=== PATIENT | female | born 1965 | race Caucasian/White ===

== ENCOUNTER 2016-10-29 20:54 | Observation (INO) | payer MEDICARE, OTHER ==
[2016-10-29 21:36] LABS: Basophils # (A) 0.1 k/uL (0-0.2); Basophils % (A) 1 %; CH 28.5; CHCM 33.6; Eosinophils # (A) 0.3 k/uL (0-0.7); Eosinophils % (A) 4 %; HCT 33.2 % (34.0-46.0); HDW 3.09; HGB 11.5 gm/dL (11.4-16.0); Luc # (Auto) 0.14; Luc % (Auto) 2; Lymphocytes # (A) 1.8 k/uL (1.0-4.8); Lymphocytes % (A) 24 %; MCH 29.5 pg (25.0-35.0); MCHC 34.8 g/dL (31.0-37.0); Monocytes # (A) 0.4 k/uL (0-1.0); Monocytes % (A) 5 %; Neutrophils # (A) 4.8 k/uL (1.3-7.7); Neutrophils % (A) 64 %; RBC 3.91 m/uL (3.80-5.40); RDW 14.1 % (11.5-15.5); WBC 7.6 k/uL (3.8-10.6)
[2016-10-29 21:46] LABS: ALT 40 U/L (9-52); AST 23 U/L (14-36); Alkaline Phosphatase 131 U/L (38-126); Anion Gap 13 mmol/L; Blood Urea Nitrogen 10 mg/dL (7-17); Calcium 8.9 mg/dL (8.4-10.2); Carbon Dioxide 24 mmol/L (22-30); Chloride 99 mmol/L (98-107); Glucose 307 mg/dL (74-99); Magnesium 1.6 mg/dL (1.6-2.3); Non-African American GFR(MDRD) >60 (>60 ml/min/1.73 sqM); Potassium 4.3 mmol/L (3.5-5.1); Sodium 136 mmol/L (137-145); Total Bilirubin 0.5 mg/dL (0.2-1.3); Total Protein 6.7 g/dL (6.3-8.2)
[2016-10-29 22:12] LABS: Creatine Kinase 42 U/L (30-135)
--- NOTE | 2016-10-29 22:12 | XR ---
EXAMINATION TYPE: XR chest 2V DATE OF EXAM: 10/29/2016 9:36 PM COMPARISON: 08/22/2014 HISTORY: Chest pain TECHNIQUE: Frontal and lateral views of the chest are obtained. FINDINGS: There is no heart failure nor confluent pneumonic infiltrate. There are no hilar masses. H eart size is normal. There are chest leads. IMPRESSION: No active cardiopulmonary disease. No change.
[2016-10-29 22:24] LABS: Creatine Kinase MB 0.8 ng/mL (0.0-2.4); Troponin I <0.012 ng/mL (0.000-0.034)
[2016-10-29] MEDS ORDERED: SODIUM CHLORIDE 0.9% 500 ML IV STA (22:26)
[2016-10-29] MEDS ORDERED: SODIUM CHLORIDE 0.9% 1,000 ML IV STA ×2 (22:26)
[2016-10-29] MEDS ORDERED: MORPHINE SULFATE 4 MG/ML SYRINGE IVP STA (22:27)
[2016-10-29] MEDS ORDERED: LORazepam 2 MG/ML SYRINGE IV STA (22:27)
[2016-10-29 22:28] LABS: Partial Thromboplastin Time 22.9 sec (22.0-30.0); Prothrombin Time 10.1 sec (9.0-12.0)
[2016-10-29] MEDS ORDERED: HEPARIN SODIUM,PORCINE 5,000 UNIT/ML 1 ML VIAL IV PRN ×2 (22:41→23:07)
[2016-10-29] MEDS ORDERED: MORPHINE SULFATE 4 MG/ML SYRINGE IV PRN (22:41)
[2016-10-29] MEDS ORDERED: HEPARIN SODIUM,PORCINE 5,000 UNIT/ML 1 ML VIAL IV ONE (22:41)
[2016-10-29] MEDS ORDERED: NITROGLYCERIN SL TABS 0.4 MG TAB SUBLINGUAL PRN (22:41)
--- NOTE | 2016-10-29 22:41 | ED ---
General Adult HPI - General Chief complaint: Chest Pain Stated complaint: Chest Pain/Hypertension Time Seen by Provider: 10/29/16 21:32 Source: patient, RN notes reviewed, old records reviewed Mode of arrival: ambulatory Limitations: no limitations - History of Present Illness Initial comments: This is a 51-year-old female yesterday for evaluation of chest pain. She does have underlying psychiatric history and history is bagged the patient complains of chest pain epigastric rating to back. Mild shortness of breath no nausea vomiting. No recent fevers cough congestion. Patient does suffer from fibromyalgia hypertension, high cholesterol and psychiatric disease. Patient states she is taking all medications as prescribed. Patient was initially concerned which shows her blood pressure to be very elevated and heart rate to be very elevated while at home, at the time she was feeling weak and short of breath or chest pain chest pain. Again no cough congestion or fever travel history. - Related Data Home Medications Medication Instructions Recorded Confirmed Bisoprolol-Hctz 10-6.25 mg [Ziac 09/29/15 09/29/15 10-6.25 MG] FLUoxetine HCL [PROzac] 40 mg PO DAILY 09/29/15 09/29/15 Rosuvastatin Calcium [Crestor] 5 mg PO DAILY 09/29/15 09/29/15 Zolpidem Tartrate [Ambien] 10 mg PO 09/29/15 09/29/15 lamoTRIgine [LaMICtal] 25 mg PO DAILY 09/29/15 09/29/15 metFORMIN HCL 1,000 mg PO BID 09/29/15 09/29/15 Previous Rx's Medication Instructions Recorded Cephalexin [Keflex] 500 mg PO Q6HR #28 cap 09/29/15 Ibuprofen [Motrin] 800 mg PO Q8HR PRN #30 tab 09/29/15 Allergies Allergy/AdvReac Type Severity Reaction Status Date / Time coconut oil Allergy Unknown Anaphylaxis Verified 08/22/14 22:35 pineapple [Pineapple] Allergy Unknown Anaphylaxis Verified 08/22/14 22:35 licorice Allergy Unknown Verified 10/29/16 21:11 flu shot Allergy Unknown Unknown Uncoded 08/22/14 22:35 Review of Systems ROS Statement: Those systems with pertinent positive or pertinent negative responses have been documented in the HPI. ROS Other: All systems not noted in ROS Statement are negative. Past Medical History Past Medical History: Diabetes Mellitus, Fibromyalgia, Hyperlipidemia, Hypertension, Musculoskeletal Disorder, Seizure Disorder Additional Past Medical History / Comment(s): borderline personality; Pt. denies hx. of CVA, so it's being taken off past med. history per Dr. Stanton's direction. History of Any Multi-Drug Resistant Organisms: None Reported Past Surgical History: Cholecystectomy Past Anesthesia/Blood Transfusion Reactions: No Reported Reaction Past Psychological History: Schizophrenia Additional Psychological History / Comment(s): Borderline personality disorder Smoking Status: Current every day smoker Past Alcohol Use History: Occasional Past Drug Use History: Cocaine General Exam Limitations: no limitations General appearance: alert, in no apparent distress, anxious Head exam: Present: atraumatic, normocephalic, normal inspection Eye exam: Present: normal appearance, PERRL, EOMI. Absent: scleral icterus, conjunctival injection, periorbital swelling ENT exam: Present: normal exam, mucous membranes moist Neck exam: Present: normal inspection. Absent: tenderness, meningismus, lymphadenopathy Respiratory exam: Present: normal lung sounds bilaterally. Absent: respiratory distress, wheezes, rales, rhonchi, stridor Cardiovascular Exam: Present: regular rate, normal rhythm, tachycardia, normal heart sounds. Absent: systolic murmur, diastolic murmur, rubs, gallop, clicks GI/Abdominal exam: Present: soft, normal bowel sounds. Absent: distended, tenderness, guarding, rebound, rigid Extremities exam: Present: normal inspection, full ROM, normal capillary refill. Absent: tenderness, pedal edema, joint swelling, calf tenderness Back exam: Present: normal inspection Neurological exam: Present: alert, oriented X3, CN II-XII intact Psychiatric exam: Present: normal affect, normal mood Skin exam: Present: warm, dry, intact, normal color. Absent: rash Course Vital Signs 10/29/16 21:03 Temperature 98.6 F Pulse Rate 103 H Respiratory 18 Rate Blood Pressure 160/91 O2 Sat by Pulse 96 Oximetry - Reevaluation(s) Reevaluation #1: 10/29/16 22:40 Patient's chest pain is improved with pain control, heart rate remains elevated , blood pressure is not controlled EKG Findings - EKG Comments: EKG Findings:: EKG shows sinus tachycardia rate 101, TX 154, QRS 74, QTC 484 Medical Decision Making - Medical Decision Making 51 female with history of hypertension and high cholesterol, patient coming in with chest pain, anterior chest pain shortness of breath. Patient will be admitted for cardiac evaluation initial EKG shows no ST elevation, patient will be put on anticoagulation, pain control, cardiac observation with serial troponins - Lab Data Result diagrams: 10/29/16 21:24 10/29/16 21:24 Lab Results 10/29/16 10/29/16 10/29/16 Range/Units 21:24 21:24 21:24 WBC 7.6 (3.8-10.6) k/uL RBC 3.91 (3.80-5.40) m/uL Hgb 11.5 (11.4-16.0) gm/dL Hct 33.2 L (34.0-46.0) % MCV 85.0 (80.0-100.0) fL MCH 29.5 (25.0-35.0) pg MCHC 34.8 (31.0-37.0) g/dL RDW 14.1 (11.5-15.5) % Plt Count 264 (150-450) k/uL Neutrophils % 64 % Lymphocytes % 24 % Monocytes % 5 % Eosinophils % 4 % Basophils % 1 % Neutrophils # 4.8 (1.3-7.7) k/uL Lymphocytes # 1.8 (1.0-4.8) k/uL Monocytes # 0.4 (0-1.0) k/uL Eosinophils # 0.3 (0-0.7) k/uL Basophils # 0.1 (0-0.2) k/uL PT (9.0-12.0) sec INR (<1.1) APTT (22.0-30.0) sec D-Dimer (<0.60) mg/L FEU Sodium 136 L (137-145) mmol/L Potassium 4.3 (3.5-5.1) mmol/L Chloride 99 (98-107) mmol/L Carbon Dioxide 24 (22-30) mmol/L Anion Gap 13 mmol/L BUN 10 (7-17) mg/dL Creatinine 0.54 (0.52-1.04) mg/dL Est GFR (MDRD) Af Amer >60 (>60 ml/min/1.73 sqM) Est GFR (MDRD) Non-Af >60 (>60 ml/min/1.73 sqM) Glucose 307 H (74-99) mg/dL Calcium 8.9 (8.4-10.2) mg/dL Magnesium 1.6 (1.6-2.3) mg/dL Total Bilirubin 0.5 (0.2-1.3) mg/dL AST 23 (14-36) U/L ALT 40 (9-52) U/L Alkaline Phosphatase 131 H (38-126) U/L Total Creatine Kinase 42 (30-135) U/L CK-MB (CK-2) 0.8 (0.0-2.4) ng/mL CK-MB (CK-2) Rel Index 1.9 Troponin I <0.012 (0.000-0.034) ng/mL Total Protein 6.7 (6.3-8.2) g/dL Albumin 3.5 (3.5-5.0) g/dL 10/29/16 Range/Units 21:24 WBC (3.8-10.6) k/uL RBC (3.80-5.40) m/uL Hgb (11.4-16.0) gm/dL Hct (34.0-46.0) % MCV (80.0-100.0) fL MCH (25.0-35.0) pg MCHC (31.0-37.0) g/dL RDW (11.5-15.5) % Plt Count (150-450) k/uL Neutrophils % % Lymphocytes % % Monocytes % % Eosinophils % % Basophils % % Neutrophils # (1.3-7.7) k/uL Lymphocytes # (1.0-4.8) k/uL Monocytes # (0-1.0) k/uL Eosinophils # (0-0.7) k/uL Basophils # (0-0.2) k/uL PT 10.1 (9.0-12.0) sec INR 1.0 (<1.1) APTT 22.9 (22.0-30.0) sec D-Dimer 0.31 (<0.60) mg/L FEU Sodium (137-145) mmol/L Potassium (3.5-5.1) mmol/L Chloride (98-107) mmol/L Carbon Dioxide (22-30) mmol/L Anion Gap mmol/L BUN (7-17) mg/dL Creatinine (0.52-1.04) mg/dL Est GFR (MDRD) Af Amer (>60 ml/min/1.73 sqM) Est GFR (MDRD) Non-Af (>60 ml/min/1.73 sqM) Glucose (74-99) mg/dL Calcium (8.4-10.2) mg/dL Magnesium (1.6-2.3) mg/dL Total Bilirubin (0.2-1.3) mg/dL AST (14-36) U/L ALT (9-52) U/L Alkaline Phosphatase (38-126) U/L Total Creatine Kinase (30-135) U/L CK-MB (CK-2) (0.0-2.4) ng/mL CK-MB (CK-2) Rel Index Troponin I (0.000-0.034) ng/mL Total Protein (6.3-8.2) g/dL Albumin (3.5-5.0) g/dL - Radiology Data Radiology results: report reviewed (Chest x-ray 2 views negative for acute disease), image reviewed Critical Care Time Critical Care Time: Yes Total Critical Care Time: 31 Disposition Clinical Impression: Chest pain Disposition: ADMITTED IP TO THIS [facility] Condition: Undetermined Instructions: Chest Pain (ED) Referrals: Nonstaff,Physician [Primary Care Provider] - 1-2 days
[2016-10-29] MEDS ORDERED: HEPARIN SODIUM,PORCINE/D5W PMX 25,000 UNIT in DEXTROSE/WATER 1 500ML.BAG IV SCH (22:45)
[2016-10-29 23:00] LABS: Phosphorous 3.9 mg/dL (2.5-4.5)
[2016-10-29 23:43] LABS: Glucose,Whole Blood 273 mg/dL (75-99)
[2016-10-29 23:59] VITALS: BMI 32.5
[2016-10-30 03:47] LABS: Creatine Kinase 33 U/L (30-135)
[2016-10-30 04:01] LABS: Creatine Kinase MB 0.6 ng/mL (0.0-2.4); Troponin I <0.012 ng/mL (0.000-0.034)
[2016-10-30 07:12] LABS: Glucose,Whole Blood 260 mg/dL (75-99)
[2016-10-30 07:24] LABS: Mean Platelet Volume 6.6
[2016-10-30 07:48] LABS: HDL Cholesterol 52 mg/dL (40-60)
[2016-10-30 08:39] LABS: Cholesterol 511 mg/dL (<200)
[2016-10-30 08:40] LABS: Triglycerides 1588 mg/dL (<150)
[2016-10-30 08:58] VITALS: RESP 16
[2016-10-30] MEDS ORDERED: ASPIRIN 325 MG TAB PO SCH (09:00)
[2016-10-30] MEDS ORDERED: ASPIRIN 81 MG CHEW PO SCH (09:00)
[2016-10-30] MEDS ORDERED: BISOPROLOL-HCTZ 10-6.25 MG 1 EACH TAB PO SCH (09:00)
[2016-10-30] MEDS: SODIUM CHLORIDE 0.9% 1,000 ML IV SCH ×2 (09:05→10:35)
[2016-10-30 10:28] LABS: Creatine Kinase 36 U/L (30-135)
[2016-10-30] MEDS ORDERED: NAPROXEN 250 MG TAB PO PRN (10:31)
[2016-10-30 10:41] LABS: Creatine Kinase MB 0.6 ng/mL (0.0-2.4); Troponin I <0.012 ng/mL (0.000-0.034)
[2016-10-30] MEDS ORDERED: GLIMEPIRIDE 2 MG TAB PO SCH (10:45)
[2016-10-30] MEDS ORDERED: ATORVASTATIN 40 MG TAB PO SCH (10:45)
[2016-10-30] MEDS ORDERED: FLUoxetine HCL 20 MG CAP PO SCH (10:45)
[2016-10-30] MEDS ORDERED: POTASSIUM CHLORIDE ER 10 MEQ TAB.ER.PRT PO SCH (10:45)
[2016-10-30] MEDS ORDERED: metFORMIN 500 MG TAB PO SCH (10:45)
[2016-10-30] MEDS ORDERED: GEMFIBROZIL 600 MG TAB PO SCH (10:45)
[2016-10-30] MEDS ORDERED: TOPIRAMATE 25 MG TAB PO SCH (10:45)
[2016-10-30] MEDS ORDERED: levETIRAcetam 500 MG TAB PO SCH (10:45)
[2016-10-30] MEDS ORDERED: lamoTRIgine 100 MG TAB PO SCH (10:45)
--- NOTE | 2016-10-30 10:49 | CONS ---
DATE OF CONSULTATION: CHIEF COMPLAINT: Chest pain. Neeru is a 51-year-old lady with history of hypertension, gastroesophageal reflux disease, and bipolar mood disorder, who presented to the hospital having had an episode of chest pain. She describes it as sharp precordial pain that radiated to her back without nausea, vomiting, or diaphoresis. Chest discomfort is mild in intensity and has gradually resolved on its own. There were no clear-cut exacerbating factors. At the time of my evaluation this morning, she is pain free. Cardiac enzymes are negative. EKG does not reveal acute ischemic changes. Past medical history is significant for hypertension, dyslipidemia, [id number] diabetes and bipolar mood disorder. She has drug ALLERGIES INCLUDING FLU SHORT, COCONUT OIL, PINEAPPLE AND LICORICE. Medications include: Keflex, ibuprofen, Ziac, Prozac, Crestor, Ambien, Lamictal and metformin. FAMILY HISTORY: Negative for premature coronary artery disease. SOCIAL HISTORY: Significant for smoking. Negative EtOH abuse or drug abuse. REVIEW OF SYSTEMS: HEENT: Unremarkable. CARDIAC: As described above. RESPIRATORY: Negative. GI: Negative. GENITOURINARY: Negative. MUSCULOSKELETAL: Significant for arthritis. PSYCHOSOCIAL: Significant for bipolar mood disorder. DERMATOLOGY: Negative. CONSTITUTIONAL: Negative. HEMATOLOGICAL: Negative. ONCOLOGICAL: Negative. The rest of the system review is not relevant. On exam, patient is afebrile, heart rate is 90 beats per minute, blood pressure is 150/89, respiratory rate is 18. There is no jugular venous distention. Carotid upstroke is normal. There is no bruit. Chest exam reveals good air entry bilaterally. Heart exam reveals first and second heart sounds. No gallop. No murmur, no rub. Abdomen is soft, nontender. Exam of the extremities did not reveal any edema. Peripheral pulses are felt. Labs show that the hemoglobin is 11.5. Creatinine is 0.5, two sets of tropes are negative. Cholesterol is elevated at 511 and triglycerides are 1588. Blood sugar is elevated at 307. ASSESSMENT: 1. Chest pain, atypical, probably musculoskeletal. So far cardiac work-up is negative. I am going to obtain a 2-D echo to evaluate her LV function and she will need a stress test which can be done as outpatient. 2. Severe mixed hyperlipidemia. Triglycerides are elevated as are the cholesterols. Probably related to poorly controlled blood sugars. She needs optimal control of her blood sugars. She is already on Lopid 600 b.i.d. and she is already on Crestor and Lopid. The dyslipidemia needs to be addressed further as outpatient primarily by working on her diet, weight loss and optimal control of her diabetes.
[2016-10-30 11:50] LABS: Glucose,Whole Blood 279 mg/dL (75-99)
[2016-10-30] MEDS ORDERED: INSULIN LISPRO (humaLOG) 300 UNIT/3 ML VIAL SQ SCH (12:30)
[2016-10-30 12:32] VITALS: BP 157/80; PULSE 90; TEMP 98.2
--- NOTE | 2016-10-30 13:29 | ECHOF ---
Referral Reason:cp MEASUREMENTS -------- HEIGHT: 162.6 cm WEIGHT: 85.7 kg BP: 140/95 IVSd: 1.1 cm (0.6 - 1.1) LVIDd: 4.9 cm (3.9 - 5.3) LVPWd: 1.2 cm (0.6 - 1.1) LVIDs: 3.1 cm LA Diam: 4.3 cm (2.7 - 3.8) RVIDd: 2.9 cm (< 3.3) LAESV Index (A-L): 27.17 ml/m Ao Diam: 3.1 cm (2.0 - 3.7) AV Cusp: 2.3 cm (1.5 - 2.6) EPSS: 0.5 cm MV E Holden: 1.09 m/s MV DecT: 230 ms MV A Holden: 0.98 m/s MV E/A Ratio: 1.11 MV EF SLOPE: 84.18 mm/s (70 - 150) MV EXCURSION: 13.19 mm (> 18.000) FINDINGS -------- Sinus rhythm. This was a technically good study. The left ventricular size is normal. There is borderline concentric left ventricular hypertrophy. Overall left ventricular systolic function is normal with, an EF between 60 - 65 %. The right ventricle is normal in size. Normal LA size by volume 22+/-6 ml/m2. The right atrium is normal in size. There is mild aortic valve sclerosis. The mitral valve leaflets are mildly thickened. Mild mitral annular calcification present. There is trace to mild mitral regurgitation. The tricuspid valve appears structurally normal. No regurgitation noted The pulmonic valve is normal. There is no pulmonic regurgitation present. The aortic root size is normal. There is no pericardial effusion. CONCLUSIONS -------- 1. Sinus rhythm. 2. The mitral valve leaflets are mildly thickened. 3. Mild mitral annular calcification present. 4. There is trace to mild mitral regurgitation. 5. The tricuspid valve appears structurally normal. 6. The pulmonic valve is normal. 7. The aortic root size is normal. 8. There is no pericardial effusion. 9. This was a technically good study. 10. The left ventricular size is normal. 11. There is borderline concentric left ventricular hypertrophy. 12. Overall left ventricular systolic function is normal with, an EF between 60 - 65 %. 13. The right ventricle is normal in size. 14. Normal LA size by volume 22+/-6 ml/m2. 15. The right atrium is normal in size. 16. There is mild aortic valve sclerosis. INTERNAL INVESTIGATOR: Nilam Sosa RDCS
[2016-10-30 14:01] LABS: Hemoglobin A1C 7.2 % (4.2-6.1)
--- NOTE | 2016-10-30 15:34 | HP ---
DATE OF ADMISSION: CHIEF COMPLAINT: A 51-year-old white female who developed some chest pain, sharp precordial pain, radiates to her back without nausea, vomiting, diaphoresis. Mild in intensity, goes away on its own. Not alleviated or exacerbated by anything. She states she had it this morning and is currently pain free at this time. Cardiac enzymes are negative currently and the EKG, no ischemic changes on admission. The patient has a history of hypertension, GERD, bipolar disorder, dyslipidemia, and type 2 diabetes. ALLERGIES: Include FLU SHOT, COCONUT OIL, PINEAPPLE and LICORICE. Medications include: 1. Keflex. 2. Ibuprofen. 3. Ziac. 4. Prozac. 5. Crestor. 6. Inderal LA. 7. Lamictal. 8. Metformin. Family history is negative. Social history significant for smoking, negative alcohol or drug abuse. REVIEW OF SYSTEMS: CARDIAC: As mentioned above. PULMONARY: Negative. VASCULAR: Negative. IMMUNE: Negative. INTEGUMENT: Negative. GI: Negative. [employer]: Negative. MUSCULOSKELETAL: Negative. PHYSICAL EXAM: Vital signs are reviewed. CARDIOVASCULAR: S1, S2. No chest wall tenderness. Lungs are clear. Abdomen is distended, obesity, nontender. Extremities show of range of motion of full x4. PSYCH: Giving appropriate answers, fair mood and affect. NEUROLOGIC: Alert and oriented x3. Labs were reviewed. Vitals are reviewed. MEDICATIONS: Reviewed. ASSESSMENT: 1. Atypical chest pain, most likely musculoskeletal. A 2-D echo will be ordered by Cardiology. 2. Severe mixed dyslipidemia, triglycerides, severe mixed edema. 3. Bipolar disorder. PLAN: Echo will be done. Cardiology consult will be done. CPKs x2 to 3 will be done. Chest x-ray is normal. D-dimer is negative. If she is cleared by cardiology, fely then can be discharged later on today.
--- NOTE | 2016-10-30 20:48 | DS ---
DATE OF ADMISSION: 10/29/2016 DATE OF DISCHARGE: 10/30/2016 DISCHARGE MEDICATIONS: 1. Bisoprolol hydrochlorothiazide 10/625 one daily. 2. Metformin 1000 b.i.d. 3. Abilify 30 daily. 4. Aspirin 81 daily. 5. Prozac 60 daily. 6. Lopid 600 b.i.d. 7. Amaryl 2 mg a.c. breakfast. 8. Naprosyn 500 q12. 9. Omeprazole 20 daily. 10. Potassium chloride 10 mEq b.i.d. CONDITION: Stable. PROGNOSIS: Guarded. Ambulate as tolerated. HOSPITAL COURSE OF EVENTS: This is a white female who was admitted to the hospital with atypical type chest pain and chest x-ray ( ) negative. She was admitted. Cardiac enzymes are negative. ( ) normal. Cardiology cleared her for discharge. She was stable from a medical standpoint and she will follow up as an outpatient as she appears to be medically stable for discharge.
[2016-10-30] MEDS ORDERED: PANTOPRAZOLE 40 MG TABLET PO SCH (21:00)
[2016-10-30] MEDS ORDERED: ARIPiprazole 10 MG TAB PO SCH (21:00)
== END 2016-10-30 15:34 | disposition home or self-care (01) ==
LOC: EC 20:54 → 3OBS 22:41
PROVIDERS: ADMIT Family Medicine; ATTEND Family Medicine
DX: R07.89 Other chest pain (principal); R06.02 Shortness of breath; E78.2 Mixed hyperlipidemia; G40.909 Epilepsy, unspecified, not intractable, without status epilepticus; F31.9 Bipolar disorder, unspecified; I10 Essential (primary) hypertension; F17.200 Nicotine dependence, unspecified, uncomplicated; Z79.899 Other long term (current) drug therapy; Z79.84 Long term (current) use of oral hypoglycemic drugs; Z88.7 Allergy status to serum and vaccine; Z91.018 Allergy to other foods; E11.65 Type 2 diabetes mellitus with hyperglycemia
CPT/HCPCS: 99291; 96375; 36415; 93005; 93306; 85379; 80061; 80053; 83036; 82550 ×2; 82553 ×2; 83690; 83735; 84100; 84484 ×2; 85025; 85049; 85610; 85730 ×2; 71020; G0378 ×2; J2060; J1644 ×2; 96365; 96366; 96376

== ENCOUNTER 2017-03-02 11:42 | Inpatient (IN) | payer MEDICARE, MEDICAID ==
--- NOTE | 2017-03-02 12:18 | ED ---
General Adult HPI - General Chief complaint: Psychiatric Symptoms Stated complaint: SUICIDAL Time Seen by Provider: 03/02/17 11:58 Source: patient, family, RN notes reviewed Mode of arrival: ambulatory Limitations: no limitations - History of Present Illness Initial comments: Patient 51-year-old female who presents emergency room today with a chief complaint of suicidal ideation. She does admit that she's had thoughts of hurting herself and try to hang herself earlier today. She does admit that she sees a therapist in constant regular patient advised to come here to the emergency room for evaluation. Patient denies any other physical complaints. Patient denies any recent fever, chills, shortness of breath, chest pain, back pain, abdominal pain, nausea or vomiting, numbness or tingling, dysuria or hematuria, constipation or diarrhea, headaches or visual changes, or any other complaints. - Related Data Home Medications Medication Instructions Recorded Confirmed Bisoprolol-Hctz 10-6.25 mg [Ziac 1 tab PO DAILY 09/29/15 03/02/17 10-6.25 MG] metFORMIN HCL 1,000 mg PO BID 09/29/15 03/02/17 ARIPiprazole [Abilify] 30 mg PO HS 10/30/16 03/02/17 Aspirin [Adult Low Dose Aspirin EC] 81 mg PO DAILY 10/30/16 03/02/17 Gemfibrozil [Lopid] 600 mg PO AC-BID 10/30/16 03/02/17 Glimepiride [Amaryl] 2 mg PO AC-BRKFST 10/30/16 03/02/17 Naproxen [Naprosyn] 500 mg PO BID 10/30/16 03/02/17 Omeprazole 20 mg PO BID 10/30/16 03/02/17 Potassium Chloride ER [K-Dur 10] 10 meq PO BID 10/30/16 03/02/17 Propranolol LA [Inderal LA] 80 mg PO DAILY 10/30/16 03/02/17 Topiramate [Trokendi Xr] 100 mg PO DAILY 10/30/16 03/02/17 lamoTRIgine [LaMICtal] 100 mg PO DAILY 10/30/16 03/02/17 levETIRAcetam [Keppra] 500 mg PO Q12HR 10/30/16 03/02/17 Butalb/Acetaminophen/Caffeine 1 tab PO DAILY PRN 03/02/17 03/02/17 [Fioricet 50-325-40] Ergocalciferol [Vitamin D2] 50,000 unit PO Q7D 03/02/17 03/02/17 FLUoxetine HCL [PROzac] 80 mg PO DAILY 03/02/17 03/02/17 Furosemide [Lasix] 20 mg PO DAILY 03/02/17 03/02/17 [place] Carbonate 600 mg PO HS 03/02/17 03/02/17 Nystatin 100,000Unit/gm Cream 1 applic TOPICAL BID 03/02/17 03/02/17 [Mycostatin Cream] [place]-3 Fatty Acids/Fish Oil [Fish 1 cap PO DAILY 03/02/17 03/02/17 Oil 1,000 mg Capsule] Rosuvastatin Calcium [Crestor] 40 mg PO DAILY 03/02/17 03/02/17 metFORMIN HCL [Metformin HCl] 500 mg PO QAM 03/02/17 03/02/17 Allergies Allergy/AdvReac Type Severity Reaction Status Date / Time coconut oil Allergy Unknown Anaphylaxis Verified 03/02/17 11:55 pineapple [Pineapple] Allergy Unknown Anaphylaxis Verified 03/02/17 11:55 licorice Allergy Unknown Verified 03/02/17 11:55 flu shot Allergy Unknown Unknown Uncoded 03/02/17 11:55 Review of Systems ROS Statement: Those systems with pertinent positive or pertinent negative responses have been documented in the HPI. ROS Other: All systems not noted in ROS Statement are negative. Past Medical History Past Medical History: Diabetes Mellitus, Fibromyalgia, Hyperlipidemia, Hypertension, Musculoskeletal Disorder, Seizure Disorder Additional Past Medical History / Comment(s): borderline personality; Pt. denies hx. of CVA, so it's being taken off past med. history per Dr. Stanton's direction, benign liver cyst, previous cocaine use History of Any Multi-Drug Resistant Organisms: None Reported Past Surgical History: Cholecystectomy Past Anesthesia/Blood Transfusion Reactions: No Reported Reaction Past Psychological History: Schizophrenia Additional Psychological History / Comment(s): Borderline personality disorder Smoking Status: Former smoker Past Alcohol Use History: Rare Past Drug Use History: None Reported Additional Drug Use History / Comment(s): pt said she has not used in 9 years. used crack cocaine for 3 years - Past Family History Father History Unknown: Yes Family Medical History: Myocardial Infarction (PR) Additional Family Medical History / Comment(s): passed of PR at 71 Mother History Unknown: Yes Family Medical History: Diabetes Mellitus Sister(s) History Unknown: Yes Family Medical History: COPD, Myocardial Infarction (PR) Additional Family Medical History / Comment(s): fatal PR at 50 General Exam - General Exam Comments Initial Comments: General: The patient is awake and alert, in no distress, and does not appear acutely ill. Eye: Pupils are equal, round and reactive to light, extra-ocular movements are intact. No nystagmus. There is normal conjunctiva bilaterally. No signs of icterus. Ears, nose, mouth and throat: There are moist mucous membranes and no oral lesions. Neck: The neck is supple, there is no tenderness or JVD. Cardiovascular: There is a regular rate and rhythm. No murmur, rub or gallop is appreciated. Respiratory: Lungs are clear to auscultation, respirations are non-labored, breath sounds are equal. No wheezes, stridor, rales, or rhonchi. Gastrointestinal: Soft, non-distended, non-tender abdomen without masses or organomegaly noted. There is no rebound or guarding present. No CVA tenderness. Bowel sounds are unremarkable. Musculoskeletal: Normal ROM, no tenderness. Strength 5/5. Sensation intact. Pulses equal bilaterally 2+. Neurological: A&O x 3. CN II-XII intact, There are no obvious motor or sensory deficits. Coordination appears grossly intact. Speech is normal. Skin: Skin is warm and dry and no rashes or lesions are noted. Psychiatric: Cooperative, appropriate mood & affect, normal judgment. Limitations: no limitations Course Vital Signs 03/02/17 03/02/17 11:52 14:46 Temperature 99.0 F 98 F Pulse Rate 79 80 Respiratory 18 20 Rate Blood Pressure 121/71 122/68 O2 Sat by Pulse 97 98 Oximetry Medical Decision Making - Medical Decision Making patient seen here in the emergency room by [facility]. They recommend admission. Patient willing to sign herself in. - Lab Data Lab Results 03/02/17 Range/Units 12:31 Urine Opiates Screen Not Detected (NotDetected) Ur Oxycodone Screen Not Detected (NotDetected) Urine Methadone Screen Not Detected (NotDetected) Ur Propoxyphene Screen Not Detected (NotDetected) Ur Barbiturates Screen Detected H (NotDetected) U Tricyclic Antidepress Detected H (NotDetected) Ur Phencyclidine Scrn Not Detected (NotDetected) Ur Amphetamines Screen Not Detected (NotDetected) U Methamphetamines Scrn Not Detected (NotDetected) U Benzodiazepines Scrn Detected H (NotDetected) Urine Cocaine Screen Not Detected (NotDetected) U Marijuana (THC) Screen Not Detected (NotDetected) Disposition Clinical Impression: Suicidal ideation Disposition: TRANSFER TO PSYCH HOSP/UNIT Condition: Stable Referrals: Brandee Lopez MD [Primary Care Provider] - 1-2 days Time of Disposition: 15:40
[2017-03-02] MEDS ORDERED: MAGNESIUM HYDROXIDE 2,400 MG/10 ML CUP PO PRN (18:17)
[2017-03-02] MEDS ORDERED: LORazepam 0.5 MG TAB PO PRN (18:17)
[2017-03-02] MEDS ORDERED: MAG HYDROX/AL HYDROX/SIMETH 30 ML CUP PO PRN (18:17)
[2017-03-02] MEDS: metFORMIN 500 MG TAB PO SCH (19:25)
[2017-03-02] MEDS: PANTOPRAZOLE 40 MG TABLET PO SCH (19:25)
[2017-03-02 20:30] LABS: Glucose,Whole Blood 122 mg/dL (75-99)
[2017-03-02] MEDS: ARIPiprazole 15 MG TAB PO SCH (21:58)
[2017-03-02] MEDS: LITHIUM CARBONATE 300 MG CAP PO SCH (21:58)
[2017-03-02] MEDS: POTASSIUM CHLORIDE ER 10 MEQ TAB.ER.PRT PO SCH (21:59)
[2017-03-02] MEDS: NYSTATIN 100,000UNIT/GM CREAM 30 GM TUBE TOPICAL SCH (21:59)
[2017-03-02] MEDS: levETIRAcetam 500 MG TAB PO SCH (21:59)
[2017-03-02] MEDS: TOPIRAMATE 25 MG TAB PO SCH (22:01)
[2017-03-03 05:51] LABS: Glucose,Whole Blood 97 mg/dL (75-99)
[2017-03-03] MEDS ORDERED: metFORMIN 500 MG TAB PO SCH (07:30)
[2017-03-03] MEDS: GLIMEPIRIDE 2 MG TAB PO SCH (08:05)
[2017-03-03] MEDS: metFORMIN 500 MG TAB PO SCH ×2 (08:06→17:37)
[2017-03-03] MEDS: FLUoxetine HCL 20 MG CAP PO SCH (08:08)
[2017-03-03] MEDS: ATORVASTATIN 80 MG TAB PO SCH (08:08)
[2017-03-03] MEDS: PANTOPRAZOLE 40 MG TABLET PO SCH (08:08)
[2017-03-03] MEDS: ASPIRIN 81 MG CHEW PO SCH (08:08)
[2017-03-03] MEDS: POTASSIUM CHLORIDE ER 10 MEQ TAB.ER.PRT PO SCH ×2 (08:09→20:23)
[2017-03-03] MEDS: GEMFIBROZIL 600 MG TAB PO SCH ×2 (08:09→17:37)
[2017-03-03] MEDS: NYSTATIN 100,000UNIT/GM CREAM 30 GM TUBE TOPICAL SCH ×2 (08:10→20:23)
[2017-03-03] MEDS: lamoTRIgine 100 MG TAB PO SCH (08:28)
[2017-03-03] MEDS: levETIRAcetam 500 MG TAB PO SCH ×2 (08:29→20:23)
[2017-03-03] MEDS: TOPIRAMATE 25 MG TAB PO SCH ×2 (08:29→20:23)
[2017-03-03 08:48] LABS: Basophils # (A) 0.1 k/uL (0-0.2); Basophils % (A) 1 %; CH 29.6; CHCM 32.3; Eosinophils # (A) 0.6 k/uL (0-0.7); Eosinophils % (A) 6 %; HCT 37.9 % (34.0-46.0); HDW 2.81; HGB 12.5 gm/dL (11.4-16.0); Luc # (Auto) 0.12; Luc % (Auto) 1; Lymphocytes # (A) 1.9 k/uL (1.0-4.8); Lymphocytes % (A) 19 %; MCH 30.4 pg (25.0-35.0); MCHC 32.9 g/dL (31.0-37.0); MCV 92.3 fL (80.0-100.0); Mean Platelet Volume 6.7; Monocytes # (A) 0.4 k/uL (0-1.0); Monocytes % (A) 4 %; Neutrophils % (A) 70 %; RBC 4.11 m/uL (3.80-5.40); RDW 14.7 % (11.5-15.5); WBC 10.1 k/uL (3.8-10.6); WBC (Perox) 9.76
[2017-03-03] MEDS ORDERED: NON-FORMULARY DRUG (Omega-3 Fatty Acids/Fish Oil [Fish Oil 1,000 Mg Capsule] 1 CAP) PO SCH (09:00)
[2017-03-03] MEDS ORDERED: BISOPROLOL-HCTZ 10-6.25 MG 1 EACH TAB PO SCH (09:00)
[2017-03-03] MEDS ORDERED: FUROSEMIDE 20 MG TAB PO SCH (09:00)
[2017-03-03] MEDS: PROPRANOLOL LA 80 MG CAP.SA.24H PO SCH (09:04)
[2017-03-03 09:05] LABS: ALT 24 U/L (9-52); AST 18 U/L (14-36); Alkaline Phosphatase 80 U/L (38-126); Anion Gap 12 mmol/L; Blood Urea Nitrogen 17 mg/dL (7-17); Calcium 9.6 mg/dL (8.4-10.2); Carbon Dioxide 25 mmol/L (22-30); Chloride 104 mmol/L (98-107); Glucose 114 mg/dL (74-99); Non-African American GFR(MDRD) >60 (>60 ml/min/1.73 sqM); Potassium 4.3 mmol/L (3.5-5.1); Sodium 141 mmol/L (137-145); Total Bilirubin 0.5 mg/dL (0.2-1.3); Total Protein 7.2 g/dL (6.3-8.2)
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
[2017-03-03 10:15] LABS: Hemoglobin A1C 5.6 % (4.2-6.1)
[2017-03-03 12:09] LABS: Glucose,Whole Blood 95 mg/dL (75-99)
[2017-03-03 17:17] LABS: Glucose,Whole Blood 72 mg/dL (75-99)
[2017-03-03 19:48] LABS: Glucose,Whole Blood 73 mg/dL (75-99)
[2017-03-03] MEDS: LITHIUM CARBONATE 300 MG CAP PO SCH (20:23)
[2017-03-03] MEDS: ARIPiprazole 15 MG TAB PO SCH (20:23)
--- NOTE | 2017-03-03 20:35 | CONS ---
DATE OF CONSULTATION: REASON FOR CONSULTATION: Recommendations regarding diabetes mellitus, hypertension, hyperlipidemia and multiple medications, which will need recommendations and medical clearance. This 51-year-old female who came in with suicidal ideation. Patient was admitted to the psychiatric floor. The patient denied any fever, chills. Patient denied any nausea or vomiting. Patient also is complaining of had a couple of episodes of diarrhea. Patient continues to have diarrhea, ( ) Clostridium difficile testing at that time. Patient denied any dysuria. Patient denied any cough, runny nose. Laboratory data: No significant abnormality was appreciated in lab data. Hemoglobin A1c is 5.6. Patient is on metformin 1000 b.i.d. as well as 500 additional, additional metformin will be discontinued. Patient is also on Amaryl which will be continued as it is. I did multiple changes in antihypertensive medications as well. As patient is actually on hypotensive side. REVIEW OF SYSTEMS: CONSTITUTIONAL: No fever, no malaise, no fatigue. HEENT: No recent visual problems or hearing problems. Denied any sore throat. CARDIOVASCULAR: No chest pain, orthopnea, PND, no palpitations, no syncope. PULMONARY: No shortness of breath, no cough, no hemoptysis. GASTROINTESTINAL: No diarrhea, no nausea, no vomiting, no abdominal pain. Normoactive bowel sounds. NEUROLOGICAL: No headaches, no weakness, no numbness. HEMATOLOGICAL: Denies any bleeding or petechiae. GENITOURINARY: Denies any burning micturition, frequency, or urgency. MUSCULOSKELETAL/RHEUMATOLOGICAL: Denies any joint pain, swelling, or any muscle pain. ENDOCRINE: Denies any polyuria or polydipsia. Psychiatric defer to the psychiatric service. The rest of the 14 point review of systems is negative. Home medications include: 1. ( ). 2. Hydrochlorothiazide. 3. Metformin. 4. Abilify. 5. Aspirin. 6. Gemfibrozil. 7. Glimepiride. 8. Naproxen. 9. Omeprazole. 10. Potassium chloride. 11. Propranolol. 12. Topamax. 13. Lamotrigine. 14. Fioricet without codeine. 15. Ergocalciferol. 16. Fluoxetine. 17. Lasix 20 mg p.o. daily. Patient does not have any congestive heart failure history, is taking it for blood pressure. 18. [place] carbonate. 19. Nystatin. 20. [place]-3 fatty acids. 21. Atorvastatin. 22. Metformin. ALLERGIES: COCONUT, ( ) AND FLU SHOTS. PAST MEDICAL HISTORY: Diabetes mellitus, fibromyalgia, hyperlipidemia, hypertension, seizure disorder, and borderline personality disorder, depression, cholecystectomy in the past. Father had myocardial infarction. age 71. Mother had diabetes mellitus. Sister had COPD, myocardial infarction. PHYSICAL EXAMINATION: VITAL SIGNS: Temperature 97.8, pulse of 72, respirations 16, blood pressure is 102/57. Saturating at 98% on room air. GENERAL: The patient is alert and oriented x3, not in any acute distress. Well developed, well nourished. HEENT: Pupils are round and equally reacting to light. EOMI. No scleral icterus. No conjunctival pallor. Normocephalic, atraumatic. No pharyngeal erythema. No thyromegaly. CARDIOVASCULAR: S1 and S2 present. No murmurs, rubs, or gallops. PULMONARY: Chest is clear to auscultation, no wheezing or crackles. ABDOMEN: Soft, nontender, nondistended, normoactive bowel sounds. No palpable organomegaly. MUSCULOSKELETAL: No joint swelling or deformity. EXTREMITIES: No cyanosis, clubbing, or pedal edema. NEUROLOGICAL: Gross neurological examination did not reveal any focal deficits. SKIN: No rashes. LABORATORY DATA: No significant abnormality was appreciated. As mentioned urine drug screen is positive for barbiturates and benzodiazepines. ASSESSMENT AND PLAN: 1. Diabetes mellitus type 2. Regarding diabetes mellitus, the patient will be continued on 1000 b.i.d. metformin Amaryl, additional 500 mg will be discontinued and patient's blood pressures are normal, but they are low-normal. Expect it to improve with these changes. 2. Hypertension. Patient's blood pressures are on the low-normal side again, I discontinued diuretic therapy. Lisinopril will be continued as it has an appropriate property to prevent any reflex tachycardia. I will go ahead and continue her home dose of propranolol. 3. Hyperlipidemia. Continue home medications. 4. Seizure disorder. 5. Patient has a couple episodes of diarrhea. If she continues to have this diarrhea, patient will need Clostridium difficile testing at that time. 6. Depression management as per primary service and aspirin to be continued. 7. Seizure disorder. Continue with home medications. The patient did not have any seizures recently. Will need to follow with neurology as an outpatient. Thank you for letting me participate in this patient's care. Will continue to follow the patient on an as-needed basis. DOTTY
[2017-03-04 05:31] LABS: Glucose,Whole Blood 93 mg/dL (75-99)
[2017-03-04] MEDS: GLIMEPIRIDE 2 MG TAB PO SCH (08:17)
[2017-03-04] MEDS: GEMFIBROZIL 600 MG TAB PO SCH ×2 (08:17→18:12)
[2017-03-04] MEDS: metFORMIN 500 MG TAB PO SCH ×2 (08:17→18:12)
[2017-03-04] MEDS: LISINOPRIL 10 MG TAB PO SCH (08:18)
[2017-03-04] MEDS: POTASSIUM CHLORIDE ER 10 MEQ TAB.ER.PRT PO SCH ×2 (08:18→20:47)
[2017-03-04] MEDS: lamoTRIgine 100 MG TAB PO SCH (08:18)
[2017-03-04] MEDS: ASPIRIN 81 MG CHEW PO SCH (08:18)
[2017-03-04] MEDS: PANTOPRAZOLE 40 MG TABLET PO SCH (08:18)
[2017-03-04] MEDS: levETIRAcetam 500 MG TAB PO SCH ×2 (08:18→20:47)
[2017-03-04] MEDS: ATORVASTATIN 80 MG TAB PO SCH (08:18)
[2017-03-04] MEDS: FLUoxetine HCL 20 MG CAP PO SCH (08:18)
[2017-03-04] MEDS: TOPIRAMATE 25 MG TAB PO SCH ×2 (08:19→20:47)
[2017-03-04] MEDS: PROPRANOLOL LA 80 MG CAP.SA.24H PO SCH (08:19)
[2017-03-04] MEDS: NYSTATIN 100,000UNIT/GM CREAM 30 GM TUBE TOPICAL SCH ×2 (08:19→20:52)
[2017-03-04 12:17] LABS: Glucose,Whole Blood 95 mg/dL (75-99)
[2017-03-04] MEDS: NAPROXEN 250 MG TAB PO PRN ×2 (16:50→20:47)
[2017-03-04 17:00] LABS: Glucose,Whole Blood 67 mg/dL (75-99)
[2017-03-04 17:20] LABS: Glucose,Whole Blood 81 mg/dL (75-99)
[2017-03-04 20:14] LABS: Glucose,Whole Blood 86 mg/dL (75-99)
[2017-03-04] MEDS: LITHIUM CARBONATE 300 MG CAP PO SCH (20:47)
[2017-03-04] MEDS: ARIPiprazole 15 MG TAB PO SCH (20:47)
--- NOTE | 2017-03-04 22:11 | PN ---
= DATE OF SERVICE: 03/04/2017 CHIEF COMPLAINT: The patient was admitted due to increasing depression over the last month. She has had suicide thoughts with plans in the last 2 weeks. She had cut her wrist. She was avoiding treatment. INTERVAL HISTORY: The patient has been doing fair. She had a quiet evening last night. She slept fairly well. Today, she has been up and about. She has attended some groups, although not others. When she is in a group, she usually is quiet, withdrawn and shows low energy. She seems to wander about the unit, walking in a slow manner. She does not interact too much with others. She seems to pay attention to things going on around her. Staff reports that today she has been doing some journaling and generally has been in a fairly pleasant mood. When I saw the patient, she had few complaints. She has been cooperative. She has not had change in her general health. She tolerates her psychotropic medications. MENTAL STATUS: Patient gave fair eye contact. Psychomotor activity was slow. Speech was monotone. She answered questions with brief responses. She did not say much. She was not spontaneous or interactive. Her affect was blunted. Her mood was quiet. She was somewhat withdrawn. She was otherwise appropriate in her manner. She did not appear to be significantly distressed. ASSESSMENT: I will continue the current diagnosis and treatment plan. Will continue to engage the patient in individual and group therapeutic activities. I will continue psychotropic medications the same, including Prozac 80 mg a day, Abilify 30 mg a day, lithium carbonate 600 mg a day and Lamictal 100 mg a day. She is also on Topamax and Keppra. [place] level on admission was 0.9. I will order another lithium level for Monday. I will order a Prozac level, given that she is on a moderately higher dose of Prozac. We will monitor for any signs of excess serotonin activity, given the combination of Prozac and Abilify, which also has 5 HT receptor activity. We will continue to focus on stabilization and discharge planning.
[2017-03-05 05:23] LABS: Glucose,Whole Blood 75 mg/dL (75-99)
[2017-03-05 06:31] VITALS: TEMP 98
[2017-03-05] MEDS: ASPIRIN 81 MG CHEW PO SCH (08:32)
[2017-03-05] MEDS: metFORMIN 500 MG TAB PO SCH ×2 (08:32→17:51)
[2017-03-05] MEDS: GEMFIBROZIL 600 MG TAB PO SCH ×2 (08:32→17:51)
[2017-03-05] MEDS: GLIMEPIRIDE 2 MG TAB PO SCH (08:32)
[2017-03-05] MEDS: levETIRAcetam 500 MG TAB PO SCH ×2 (08:32→21:45)
[2017-03-05] MEDS: PANTOPRAZOLE 40 MG TABLET PO SCH (08:32)
[2017-03-05] MEDS: FLUoxetine HCL 20 MG CAP PO SCH (08:33)
[2017-03-05] MEDS: lamoTRIgine 100 MG TAB PO SCH (08:33)
[2017-03-05] MEDS: NYSTATIN 100,000UNIT/GM CREAM 30 GM TUBE TOPICAL SCH ×2 (08:33→21:45)
[2017-03-05] MEDS: LISINOPRIL 10 MG TAB PO SCH (08:33)
[2017-03-05] MEDS: ATORVASTATIN 80 MG TAB PO SCH (08:33)
[2017-03-05] MEDS: POTASSIUM CHLORIDE ER 10 MEQ TAB.ER.PRT PO SCH ×2 (08:33→21:45)
[2017-03-05] MEDS: PROPRANOLOL LA 80 MG CAP.SA.24H PO SCH (08:34)
[2017-03-05] MEDS: TOPIRAMATE 25 MG TAB PO SCH ×2 (08:34→21:46)
[2017-03-05 11:54] LABS: Glucose,Whole Blood 119 mg/dL (75-99)
[2017-03-05 17:19] LABS: Glucose,Whole Blood 69 mg/dL (75-99)
[2017-03-05 17:46] LABS: Glucose,Whole Blood 78 mg/dL (75-99)
[2017-03-05 20:21] LABS: Glucose,Whole Blood 63 mg/dL (75-99)
[2017-03-05 21:01] LABS: Glucose,Whole Blood 84 mg/dL (75-99)
[2017-03-05] MEDS: ARIPiprazole 15 MG TAB PO SCH (21:45)
[2017-03-05] MEDS: LITHIUM CARBONATE 300 MG CAP PO SCH (21:45)
--- NOTE | 2017-03-06 05:35 | PN ---
DATE OF SERVICE: 03/05/2017 CHIEF COMPLAINT: The patient was admitted due to increasing depression. Over the last month, she had suicide thoughts with plans. In the last 2 weeks, she had cut her wrists. She was avoidant, avoiding treatment. INTERVAL HISTORY: Patient has been doing fairly well. She says that she slept well last night. She had a quiet evening. Today she has been up and about. She tends to keep to herself. She has been attending groups. She presents in a quiet manner, though she is appropriate in her interactions. She tends to be resistant to exploring much in that regard. She does not interact too much with others. She does come out in the day area. She has not had change in her general health. She reports no problems with her medications. She feels they have been helping. MENTAL STATUS: Patient gave fair eye contact. Psychomotor activity was slowed. Speech was monotone. She answered questions with brief responses. Her thoughts were clear. She was not too spontaneous or interactive. Her affect was blunted. She smiled just a little. Her mood was quiet. She did not appear to be distressed. ASSESSMENT: I will continue the current diagnosis and treatment plan. We will continue psychotropic medications the same. Patient appears to be stabilizing. She tolerates her medications well. She has lithium level scheduled for Monday. We will continue to focus on stabilization and discharge planning.
[2017-03-06 06:26] VITALS: BP 101/65; PULSE 75; RESP 16
[2017-03-06 06:31] LABS: Glucose,Whole Blood 82 mg/dL (75-99)
[2017-03-06] MEDS: GLIMEPIRIDE 2 MG TAB PO SCH (09:08)
[2017-03-06] MEDS: levETIRAcetam 500 MG TAB PO SCH (09:08)
[2017-03-06] MEDS: FLUoxetine HCL 20 MG CAP PO SCH (09:08)
[2017-03-06] MEDS: metFORMIN 500 MG TAB PO SCH (09:08)
[2017-03-06] MEDS: GEMFIBROZIL 600 MG TAB PO SCH (09:08)
[2017-03-06] MEDS: PANTOPRAZOLE 40 MG TABLET PO SCH (09:08)
[2017-03-06] MEDS: ATORVASTATIN 80 MG TAB PO SCH (09:09)
[2017-03-06] MEDS: LISINOPRIL 10 MG TAB PO SCH ×2 (09:09→11:45)
[2017-03-06] MEDS: lamoTRIgine 100 MG TAB PO SCH (09:09)
[2017-03-06] MEDS: ASPIRIN 81 MG CHEW PO SCH (09:09)
[2017-03-06] MEDS: PROPRANOLOL LA 80 MG CAP.SA.24H PO SCH ×2 (09:10→11:45)
[2017-03-06] MEDS: NYSTATIN 100,000UNIT/GM CREAM 30 GM TUBE TOPICAL SCH (09:10)
[2017-03-06] MEDS: POTASSIUM CHLORIDE ER 10 MEQ TAB.ER.PRT PO SCH (09:10)
[2017-03-06] MEDS: TOPIRAMATE 25 MG TAB PO SCH (09:11)
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
[2017-03-09 15:13] LABS: Fluoxetine (Prozac) 534 ng/mL (50-480); NonFluoxetine 108 ng/mL (50-450)
== END 2017-03-06 12:20 | disposition home or self-care (01) | DRG 885 ==
LOC: EC 11:42 → 3MHU 16:43
PROVIDERS: ADMIT Psychiatry & Neurology Addiction Medicine; ATTEND Psychiatry & Neurology Addiction Medicine
DX: F31.30 Bipolar disorder, current episode depressed, mild or moderate severity, unspecified (principal); R45.851 Suicidal ideations; R56.9 Unspecified convulsions; K76.89 Other specified diseases of liver; E11.9 Type 2 diabetes mellitus without complications; I10 Essential (primary) hypertension; E78.5 Hyperlipidemia, unspecified; F20.9 Schizophrenia, unspecified; F41.9 Anxiety disorder, unspecified; F60.3 Borderline personality disorder; M79.7 Fibromyalgia; E66.9 Obesity, unspecified; R19.7 Diarrhea, unspecified; Z68.33 Body mass index [BMI] 33.0-33.9, adult; Z79.84 Long term (current) use of oral hypoglycemic drugs; Z79.82 Long term (current) use of aspirin; Z79.899 Other long term (current) drug therapy; Z87.891 Personal history of nicotine dependence; Z91.410 Personal history of adult physical and sexual abuse; Z88.7 Allergy status to serum and vaccine; Z91.5 Personal history of self-harm; Z81.8 Family history of other mental and behavioral disorders; Z82.49 Family history of ischemic heart disease and other diseases of the circulatory system
CPT/HCPCS: 80053; 80177; 80178; 80299; 80306; 82075; 83036; 84443; 85025; 99285

== ENCOUNTER 2017-06-08 13:51 | Emergency (ER) | payer MEDICARE, OTHER ==
[2017-06-08] MEDS ORDERED: ONDANSETRON 4 MG/2 ML VIAL IVP STA (14:34)
[2017-06-08] MEDS ORDERED: SODIUM CHLORIDE 0.9% 500 ML IV STA (14:34)
[2017-06-08] MEDS ORDERED: DIPHENOX-ATROP 2.5-0.025 MG 1 EACH TAB PO STA (14:34)
--- NOTE | 2017-06-08 14:37 | ED ---
General Adult HPI - General Chief complaint: Nausea/Vomiting/Diarrhea Stated complaint: altered Time Seen by Provider: 06/08/17 14:15 Source: patient, RN notes reviewed Mode of arrival: wheelchair Limitations: no limitations - History of Present Illness Initial comments: This is a 51-year-old female who presents emergency department stating that she' s been extremely tired ever since she started BuSpar about a week and a half ago. Patient states over the last 3 days she's developed nausea and vomiting and diarrhea. Patient denies any abdominal pain. Patient denies any dysuria hematuria urinary frequency. Patient denies any fevers or chills. Patient states over the last 3 days she feels as though she is getting weaker and more tired. Patient denies any chest pain difficulty breathing or shortness of breath. Patient denies any fever chills or cough. Patient denies a headache patient denies numbness weakness. Patient denies lightheadedness dizziness or near syncopal episode. - Related Data Home Medications Medication Instructions Recorded Confirmed Bisoprolol-Hctz 10-6.25 mg [Ziac 1 tab PO DAILY 09/29/15 06/08/17 10-6.25 MG] metFORMIN HCL 1,000 mg PO BID 09/29/15 06/08/17 ARIPiprazole [Abilify] 30 mg PO HS 10/30/16 06/08/17 Aspirin [Adult Low Dose Aspirin EC] 81 mg PO DAILY 10/30/16 06/08/17 Gemfibrozil [Lopid] 600 mg PO AC-BID 10/30/16 06/08/17 Glimepiride [Amaryl] 2 mg PO AC-BRKFST 10/30/16 06/08/17 Naproxen [Naprosyn] 500 mg PO BID 10/30/16 06/08/17 Omeprazole 20 mg PO BID 10/30/16 06/08/17 Potassium Chloride ER [K-Dur 10] 10 meq PO BID 10/30/16 06/08/17 Topiramate [Trokendi Xr] 100 mg PO DAILY 10/30/16 06/08/17 lamoTRIgine [LaMICtal] 100 mg PO BID 10/30/16 06/08/17 levETIRAcetam [Keppra] 500 mg PO Q12HR 10/30/16 06/08/17 FLUoxetine HCL [PROzac] 80 mg PO DAILY 03/02/17 06/08/17 Furosemide [Lasix] 20 mg PO DAILY 03/02/17 06/08/17 [place] Carbonate 600 mg PO HS 03/02/17 06/08/17 Rosuvastatin Calcium [Crestor] 40 mg PO HS 03/02/17 06/08/17 metFORMIN HCL [Metformin HCl] 500 mg PO QAM 03/02/17 06/08/17 Propranolol HCl [Inderal Xl] 80 mg PO DAILY 06/08/17 06/08/17 busPIRone HCL 5 mg PO TID 06/08/17 06/08/17 Previous Rx's Medication Instructions Recorded Ondansetron Odt [Zofran Odt] 4 mg PO Q8HR PRN #10 tab 06/08/17 Allergies Allergy/AdvReac Type Severity Reaction Status Date / Time coconut oil Allergy Unknown Anaphylaxis Verified 06/08/17 16:00 pineapple [Pineapple] Allergy Unknown Anaphylaxis Verified 06/08/17 16:00 licorice Allergy Unknown Verified 06/08/17 16:00 Influenza Virus Vaccines AdvReac Nausea & Verified 06/08/17 16:00 Vomiting Review of Systems ROS Statement: Those systems with pertinent positive or pertinent negative responses have been documented in the HPI. ROS Other: All systems not noted in ROS Statement are negative. Past Medical History Past Medical History: Diabetes Mellitus, Fibromyalgia, Hyperlipidemia, Hypertension, Musculoskeletal Disorder, Seizure Disorder Additional Past Medical History / Comment(s): borderline personality,benign liver cyst, previous cocaine use History of Any Multi-Drug Resistant Organisms: None Reported Past Surgical History: Cholecystectomy Past Anesthesia/Blood Transfusion Reactions: No Reported Reaction Past Psychological History: Anxiety, Bipolar, Depression, Schizophrenia Smoking Status: Current every day smoker Past Alcohol Use History: Rare Past Drug Use History: None Reported - Past Family History Father History Unknown: Yes Family Medical History: Myocardial Infarction ([place]) Additional Family Medical History / Comment(s): passed of [place] at 71 Mother History Unknown: Yes Family Medical History: Diabetes Mellitus Sister(s) History Unknown: Yes Family Medical History: COPD, Myocardial Infarction ([place]) Additional Family Medical History / Comment(s): fatal [place] at 50 General Exam - General Exam Comments Initial Comments: GENERAL: Patient is well-developed and well-nourished. Patient is nontoxic and well- hydrated and is in no acute distress. Patient however does seem very tired but is able to answer all questions accurately. ENT: Neck is soft and supple. No significant lymphadenopathy is noted. Oropharynx is clear. Moist mucous membranes. Neck has full range of motion without eliciting any pain. EYES: The sclera were anicteric and conjunctiva were pink and moist. Extraocular movements were intact and pupils were equal round and reactive to light. Eyelids were unremarkable. PULMONARY: Unlabored respirations. Good breath sounds bilaterally. No audible rales rhonchi or wheezing was noted. CARDIOVASCULAR: There is a regular rate and rhythm without any murmurs gallops or rubs. ABDOMEN: Soft and nontender with normal bowel sounds. No palpable organomegaly was noted. There is no palpable pulsatile mass. SKIN: Skin is clear with no lesions or rashes and otherwise unremarkable. NEUROLOGIC: Patient is alert and oriented x3. Cranial nerves II through XII are grossly intact. Motor and sensory are also intact. Normal speech, volume and content. Symmetrical smile. MUSCULOSKELETAL: Normal extremities with adequate strength and full range of motion. No lower extremity swelling or edema. No calf tenderness. LYMPHATICS: No significant lymphadenopathy is noted PSYCHIATRIC: Normal psychiatric evaluation. Limitations: no limitations Course Vital Signs 06/08/17 14:13 Temperature 97.7 F Pulse Rate 75 Respiratory 18 Rate Blood Pressure 107/66 O2 Sat by Pulse 98 Oximetry Medical Decision Making - Lab Data Result diagrams: 06/08/17 15:26 06/08/17 15:00 Lab Results 06/08/17 06/08/17 06/08/17 Range/Units 15:00 15:00 15:26 WBC 9.4 (3.8-10.6) k/uL RBC 3.52 L (3.80-5.40) m/uL Hgb 10.2 L (11.4-16.0) gm/dL Hct 32.2 L (34.0-46.0) % MCV 91.4 (80.0-100.0) fL MCH 29.1 (25.0-35.0) pg MCHC 31.8 (31.0-37.0) g/dL RDW 15.8 H (11.5-15.5) % Plt Count 306 (150-450) k/uL Neutrophils % 64 % Lymphocytes % 23 % Monocytes % 6 % Eosinophils % 6 % Basophils % 1 % Neutrophils # 6.0 (1.3-7.7) k/uL Lymphocytes # 2.1 (1.0-4.8) k/uL Monocytes # 0.5 (0-1.0) k/uL Eosinophils # 0.5 (0-0.7) k/uL Basophils # 0.1 (0-0.2) k/uL Sodium 142 (137-145) mmol/L Potassium 4.2 (3.5-5.1) mmol/L Chloride 108 H (98-107) mmol/L Carbon Dioxide 22 (22-30) mmol/L Anion Gap 12 mmol/L BUN 24 H (7-17) mg/dL Creatinine 0.90 (0.52-1.04) mg/dL Est GFR (MDRD) Af Amer >60 (>60 ml/min/1.73 sqM) Est GFR (MDRD) Non-Af >60 (>60 ml/min/1.73 sqM) Glucose 121 H (74-99) mg/dL Calcium 10.1 (8.4-10.2) mg/dL Total Bilirubin 0.6 (0.2-1.3) mg/dL AST 27 (14-36) U/L ALT 34 (9-52) U/L Alkaline Phosphatase 70 (38-126) U/L Total Protein 6.8 (6.3-8.2) g/dL Albumin 3.9 (3.5-5.0) g/dL Amylase 80 (30-110) U/L Lipase 180 (23-300) U/L Urine Color Yellow Urine Appearance Cloudy H (Clear) Urine pH 5.5 (5.0-8.0) Ur Specific [place] 1.010 (1.001-1.035) Urine Protein Negative (Negative) Urine Glucose (UA) Negative (Negative) Urine Ketones Negative (Negative) Urine Blood Trace H (Negative) Urine Nitrite Negative (Negative) Urine Bilirubin Negative (Negative) Urine Urobilinogen <2.0 (<2.0) mg/dL Ur Leukocyte Esterase Negative (Negative) Urine RBC <1 (0-5) /hpf Urine WBC 3 (0-5) /hpf Ur Squamous Epith Cells 3 (0-4) /hpf Urine Bacteria Few H (None) /hpf Urine Mucus Rare H (None) /hpf Disposition Clinical Impression: Gastroenteritis Disposition: HOME SELF-CARE Instructions: Gastroenteritis (ED) Prescriptions: Ondansetron Odt [Zofran Odt] 4 mg PO Q8HR PRN #10 tab PRN Reason: Nausea And Vomiting Referrals: Brandee Lopez MD [Primary Care Provider] - 1-2 days Time of Disposition: 16:12
[2017-06-08 15:24] LABS: Appearance,Urine Cloudy (Clear); Bacteria,Urine Few /hpf; Bilirubin,Urine Negative (Negative); Glucose,Urine (UA) Negative (Negative); Ketones,Urine Negative (Negative); Leukocyte Esterase,Urine Negative (Negative); Mucus,Urine Rare /hpf; Nitrite,Urine Negative (Negative); PH, Urine 5.5 (5.0-8.0); Particle Count 4038; Protein,Urine Negative (Negative); RBC,Urine <1 /hpf (0-5); Squamous Epithelial Cell,Urine 3 /hpf (0-4); UA Billing (MACRO vs. MICRO) MICRO; Urobilinogen,Urine <2.0 mg/dL (<2.0); WBC,Urine 3 /hpf (0-5)
[2017-06-08 15:30] LABS: Basophils # (A) 0.1 k/uL (0-0.2); Basophils % (A) 1 %; CH 29.3; CHCM 32.2; Eosinophils # (A) 0.5 k/uL (0-0.7); Eosinophils % (A) 6 %; HCT 32.2 % (34.0-46.0); HGB 10.2 gm/dL (11.4-16.0); Luc # (Auto) 0.12; Luc % (Auto) 1; Lymphocytes # (A) 2.1 k/uL (1.0-4.8); Lymphocytes % (A) 23 %; MCH 29.1 pg (25.0-35.0); MCHC 31.8 g/dL (31.0-37.0); MCV 91.4 fL (80.0-100.0); Mean Platelet Volume 6.7; Monocytes # (A) 0.5 k/uL (0-1.0); Monocytes % (A) 6 %; Neutrophils % (A) 64 %; RBC 3.52 m/uL (3.80-5.40); RDW 15.8 % (11.5-15.5); WBC 9.4 k/uL (3.8-10.6); WBC (Perox) 9.88
[2017-06-08 15:32] LABS: ALT 34 U/L (9-52); AST 27 U/L (14-36); Alkaline Phosphatase 70 U/L (38-126); Amylase 80 U/L (30-110); Anion Gap 12 mmol/L; Blood Urea Nitrogen 24 mg/dL (7-17); Calcium 10.1 mg/dL (8.4-10.2); Carbon Dioxide 22 mmol/L (22-30); Chloride 108 mmol/L (98-107); Glucose 121 mg/dL (74-99); Non-African American GFR(MDRD) >60 (>60 ml/min/1.73 sqM); Potassium 4.2 mmol/L (3.5-5.1); Sodium 142 mmol/L (137-145); Total Bilirubin 0.6 mg/dL (0.2-1.3); Total Protein 6.8 g/dL (6.3-8.2)
[2017-06-08 16:28] VITALS: BP 108/64; PULSE 74; RESP 16; TEMP 98
== END 2017-06-08 16:29 | disposition home or self-care (01) ==
LOC: EC 13:51
DX: K52.9 Noninfective gastroenteritis and colitis, unspecified (principal); E11.9 Type 2 diabetes mellitus without complications; E78.5 Hyperlipidemia, unspecified; I10 Essential (primary) hypertension; F31.9 Bipolar disorder, unspecified; F20.9 Schizophrenia, unspecified; G40.909 Epilepsy, unspecified, not intractable, without status epilepticus; F41.9 Anxiety disorder, unspecified; F17.200 Nicotine dependence, unspecified, uncomplicated; Z90.49 Acquired absence of other specified parts of digestive tract; Z88.7 Allergy status to serum and vaccine; Z91.018 Allergy to other foods; Z79.84 Long term (current) use of oral hypoglycemic drugs; Z79.82 Long term (current) use of aspirin; Z79.1 Long term (current) use of non-steroidal anti-inflammatories (NSAID); Z79.899 Other long term (current) drug therapy
CPT/HCPCS: 99284; 96374; 36415; 80053; 82150; 83690; 85025; 81001; J2405

== ENCOUNTER → 2017-10-03 | Outpatient (CLI) | payer MEDICARE, OTHER | END | disposition home or self-care (01) | LOC: RADNMMAIN 09:29 | PROVIDERS: ATTEND Psychiatry & Neurology Neurology | DX: Z53.9 Procedure and treatment not carried out, unspecified reason (principal) ==

== ENCOUNTER → 2017-11-09 | Outpatient (CLI) | payer MEDICARE, OTHER ==
--- NOTE | 2017-11-10 12:13 | NM ---
EXAMINATION TYPE: NM DatScan Brain SPECT DATE OF EXAM: 11/09/2017 COMPARISON: MR brain dated 03/09/2016 HISTORY: Abnormal gait, memory loss, tremors TECHNIQUE: 10 drops of Lugol's solution was administered 1 hour prior to injection as a thyroid bloc elmer agent. After the administration of 4.71 mCi I-123 Ioflupane DaTscan. Images obtained 3 hours p ost injection. SPECT images of the brain were acquired with axial and coronal reconstructions. FINDINGS: Normal crescent-shaped focal regions of activity are about the median plain, striatal activit y is distinct relative to surrounding brain tissue. IMPRESSION: Normal [place] scan
== END | disposition home or self-care (01) ==
LOC: RADNMMAIN 10-31 09:50
PROVIDERS: ATTEND Psychiatry & Neurology Neurology
DX: G25.0 Essential tremor (principal)
CPT/HCPCS: 78607; A9584

== ENCOUNTER 2018-03-16 20:30 | Emergency (ER) | payer MEDICARE, OTHER ==
[2018-03-16 20:48] VITALS: BP 168/94; PULSE 107; RESP 20; TEMP 98.5
--- NOTE | 2018-03-16 21:20 | XR ---
EXAMINATION TYPE: XR shoulder complete RT DATE OF EXAM: 03/16/2018 COMPARISON: NONE HISTORY: Shoulder pain TECHNIQUE: 3 views FINDINGS: I see no fracture nor dislocation. Glenohumeral joint is anatomic. IMPRESSION: Negative right shoulder exam.
--- NOTE | 2018-03-16 21:47 | ED ---
General Adult HPI - General Chief complaint: Extremity Injury, Upper Stated complaint: Shoulder pain Time Seen by Provider: 03/16/18 21:04 Source: patient, RN notes reviewed Mode of arrival: ambulatory Limitations: no limitations - History of Present Illness Initial comments: Patient 52-year-old female presenting to the emergency room today with a chief complaint of right shoulder pain. Patient denies any specific injury or trauma. She doesn't that is worse with certain movements. Patient denies any other complaints. Patient denies any recent fever, chills, shortness of breath, chest pain, abdominal pain, nausea or vomiting, numbness or tingling, headaches or visual changes, or any other complaints. - Related Data Home Medications Medication Instructions Recorded Confirmed Bisoprolol-Hctz 10-6.25 mg [Ziac 1 tab PO DAILY 09/29/15 03/16/18 10-6.25 MG] metFORMIN HCL 1,000 mg PO BID 09/29/15 03/16/18 ARIPiprazole [Abilify] 30 mg PO HS 10/30/16 03/16/18 Aspirin [Adult Low Dose Aspirin EC] 81 mg PO DAILY 10/30/16 03/16/18 Gemfibrozil [Lopid] 600 mg PO AC-BID 10/30/16 03/16/18 Glimepiride [Amaryl] 2 mg PO AC-BRKFST 10/30/16 03/16/18 Naproxen [Naprosyn] 500 mg PO BID 10/30/16 03/16/18 Omeprazole 20 mg PO BID 10/30/16 03/16/18 Potassium Chloride ER [K-Dur 10] 10 meq PO BID 10/30/16 03/16/18 Topiramate [Trokendi Xr] 100 mg PO DAILY 10/30/16 03/16/18 lamoTRIgine [LaMICtal] 100 mg PO DAILY 10/30/16 03/16/18 levETIRAcetam [Keppra] 500 mg PO BID 10/30/16 03/16/18 FLUoxetine HCL [PROzac] 80 mg PO DAILY 03/02/17 03/16/18 Furosemide [Lasix] 20 mg PO DAILY 03/02/17 03/16/18 Nicut Carbonate 600 mg PO HS 03/02/17 03/16/18 Rosuvastatin Calcium [Crestor] 40 mg PO HS 03/02/17 03/16/18 metFORMIN HCL [Metformin HCl] 500 mg PO QAM 03/02/17 03/16/18 Propranolol HCl [Inderal Xl] 80 mg PO DAILY 06/08/17 03/16/18 busPIRone HCL 5 mg PO Q8H 06/08/17 03/16/18 Benztropine Mesylate [Cogentin] 1 mg PO HS 03/16/18 03/16/18 Butalb/APAP/Caff 50-325-40Mg 1 tab PO Q4H PRN 03/16/18 03/16/18 [Fioricet 50-325-40] Cyanocobalamin [Vitamin B-12 1,000 mcg SQ Q30D 03/16/18 03/16/18 Injection] Ergocalciferol [Vitamin D2] 50,000 unit PO Q14D 03/16/18 03/16/18 Ferrous Sulfate [Feosol] 325 mg PO DAILY 03/16/18 03/16/18 Gabapentin [Neurontin] 100 mg PO TID 03/16/18 03/16/18 Menthol/Zinc Oxide [Calmoseptine 1 applic TOPICAL 5XD PRN 03/16/18 03/16/18 Ointment] Nystatin 100,000Unit/gm Cream 1 applic TOPICAL BID 03/16/18 03/16/18 [Mycostatin Cream] Oxybutynin Chloride 5 mg PO BID 03/16/18 03/16/18 Allergies Allergy/AdvReac Type Severity Reaction Status Date / Time coconut oil Allergy Unknown Anaphylaxis Verified 03/16/18 20:58 pineapple [Pineapple] Allergy Unknown Anaphylaxis Verified 03/16/18 20:58 licorice Allergy Unknown Verified 03/16/18 20:58 Influenza Virus Vaccines AdvReac Nausea & Verified 03/16/18 20:58 Vomiting Review of Systems ROS Statement: Those systems with pertinent positive or pertinent negative responses have been documented in the HPI. ROS Other: All systems not noted in ROS Statement are negative. Past Medical History Past Medical History: Diabetes Mellitus, Fibromyalgia, Hyperlipidemia, Hypertension, Musculoskeletal Disorder, Seizure Disorder Additional Past Medical History / Comment(s): borderline personality,benign liver cyst, previous cocaine use History of Any Multi-Drug Resistant Organisms: None Reported Past Surgical History: Cholecystectomy Past Anesthesia/Blood Transfusion Reactions: No Reported Reaction Past Psychological History: Anxiety, Bipolar, Depression, Schizophrenia Smoking Status: Former smoker Past Alcohol Use History: None Reported Past Drug Use History: None Reported - Past Family History Father History Unknown: Yes Family Medical History: Myocardial Infarction ([place]) Additional Family Medical History / Comment(s): passed of [place] at 71 Mother History Unknown: Yes Family Medical History: Diabetes Mellitus Sister(s) History Unknown: Yes Family Medical History: COPD, Myocardial Infarction ([place]) Additional Family Medical History / Comment(s): fatal [place] at 50 General Exam - General Exam Comments Initial Comments: General: The patient is awake and alert, in no distress, and does not appear acutely ill. Neck: The neck is supple, there is no tenderness or JVD. Musculoskeletal: He has normal appearance of the right shoulder. There is no redness or swelling. Patient shows good range of motion. Sensations are intact. Radial pulses 2+. Strength is 5/5 in all areas. Patient does have tenderness over the AC joint and anterior aspect of the right shoulder. Neurological: A&O x 3. CN II-XII intact, There are no obvious motor or sensory deficits. Coordination appears grossly intact. Speech is normal. Skin: Skin is warm and dry and no rashes or lesions are noted. Psychiatric: Normal mood and affect. Limitations: no limitations Course Vital Signs 03/16/18 20:46 Temperature 98.5 F Pulse Rate 107 H Respiratory 20 Rate Blood Pressure 168/94 O2 Sat by Pulse 97 Oximetry Medical Decision Making - Medical Decision Making Patient's x-rays reviewed and are negative. Results were discussed with the patient. Patient is advised follow-up with orthopedics over the next 2 days return here to the emergency room if any symptoms increase worsen or for any other concerns. Disposition Clinical Impression: Shoulder pain Disposition: HOME SELF-CARE Condition: Good Instructions: Shoulder Pain (ED) Additional Instructions: Please continue anti-inflammatories as discussed. Please follow-up with orthopedic/family doctor in the next 2 days. Please return to emergency room if the symptoms increase or worsen or for any other concerns. Is patient prescribed a controlled substance at d/c from ED?: No Referrals: [facility] [Primary Care Provider] - 1-2 days Paul Rhodes MD [Medical Doctor] - 1-2 days Time of Disposition: 21:47
== END 2018-03-16 21:53 | disposition home or self-care (01) ==
LOC: EC 20:30
DX: M25.511 Pain in right shoulder (principal); E11.9 Type 2 diabetes mellitus without complications; M79.7 Fibromyalgia; E78.5 Hyperlipidemia, unspecified; I10 Essential (primary) hypertension; G40.909 Epilepsy, unspecified, not intractable, without status epilepticus; F41.9 Anxiety disorder, unspecified; F32.9 Major depressive disorder, single episode, unspecified; F20.9 Schizophrenia, unspecified; F60.3 Borderline personality disorder; Z87.891 Personal history of nicotine dependence; Z79.84 Long term (current) use of oral hypoglycemic drugs; Z79.82 Long term (current) use of aspirin; Z79.1 Long term (current) use of non-steroidal anti-inflammatories (NSAID); Z79.899 Other long term (current) drug therapy; Z91.018 Allergy to other foods; Z88.7 Allergy status to serum and vaccine; Z91.048 Other nonmedicinal substance allergy status
CPT/HCPCS: 99283

== ENCOUNTER → 2018-04-27 | Outpatient (CLI) | payer MEDICARE, OTHER ==
[2018-04-27 09:17] LABS: Blood Urea Nitrogen 12 mg/dL (7-17); Glucose 172 mg/dL (74-99); Lithium 0.8 mmol/L
[2018-04-27 09:35] LABS: T4, Free (Free Thyroxine) 0.73 ng/dL (0.78-2.19)
[2018-04-27 16:17] LABS: HDL Cholesterol 24 mg/dL (40-60)
[2018-04-27 16:23] LABS: Cholesterol 551 mg/dL (<200)
[2018-04-27 16:43] LABS: Triglycerides >5250 mg/dL (<150)
[2018-04-27 19:23] LABS: Hemoglobin A1C 8.2 % (4.0-6.0)
== END | disposition home or self-care (01) ==
LOC: LABWHC1 08:47
PROVIDERS: ATTEND Psychiatry & Neurology Psychiatry
DX: Z51.81 Encounter for therapeutic drug level monitoring (principal); Z79.899 Other long term (current) drug therapy
CPT/HCPCS: 36415; 80061; 80178; 82565; 82947; 83036; 84439; 84443; 84520

== ENCOUNTER → 2018-05-17 | Outpatient (CLI) | payer MEDICARE, OTHER ==
[2018-05-17 10:16] LABS: HDL Cholesterol 34 mg/dL (40-60)
[2018-05-17 10:22] LABS: Cholesterol 575 mg/dL (<200)
[2018-05-17 10:50] LABS: Triglycerides 2204 mg/dL (<150)
[2018-05-17 21:36] LABS: Hemoglobin A1C 8.2 % (4.0-6.0)
== END | disposition home or self-care (01) ==
LOC: LABWHC1 09:25
PROVIDERS: ATTEND Nurse Practitioner
DX: E78.2 Mixed hyperlipidemia (principal); E08.8 Diabetes mellitus due to underlying condition with unspecified complications
CPT/HCPCS: 36415; 80061; 83036

== ENCOUNTER 2018-06-03 18:41 | Emergency (ER) | payer MEDICARE, OTHER ==
[2018-06-03 18:59] VITALS: TEMP 97.8
[2018-06-03] MEDS ORDERED: SODIUM CHLORIDE 0.9% 1,000 ML IV STA (19:04)
--- NOTE | 2018-06-03 19:24 | ED ---
Seizure HPI - General Source: patient, EMS Mode of arrival: EMS Limitations: no limitations <Melissa Meier - Last Filed: 06/04/18 02:32> <Amanda Jean-Baptiste - Last Filed: 06/05/18 07:51> - General Chief Complaint: Seizure Stated Complaint: Seizure Time Seen by Provider: 06/03/18 18:42 - History of Present Illness Initial Comments: 52-year-old female patient presents to the emergency department today via EMS after having a seizure. Patient states that she was sleeping at time of seizure onset. Patient states her friends witnessed the seizure told her it lasted approximately 3 minutes and included general body shaking. She denies any vomiting, or loss of bowel or bladder control. Patient states that she does have a history of seizures, last episode was approximately 1 to 2 years ago. Patient states that she did have an appointment with her neurologist about a month ago when he took her off Keppra. She is now only taking Lamictal and states that she has taken all doses as directed. She denies any alcohol or drug use. She did recent complete antibiotics for urinary tract infection. Denies any recent falls or head injuries. She is currently reporting mild chest discomfort. States she does have a history of angina but this feels different. Patient does admit to smoking cigarettes. She does have a history of diabetes and hypertension. Father had myocardial infarction and coronary artery disease. Patient denies any recent rash, fever, chills, shortness breath , abdominal pain, diarrhea, constipation, back pain, numbness, tingling, dizziness, weakness, hematuria, dysuria, urinary urgency, urinary frequency, headache, visual changes, or any other complaints. (Melissa Meier) - Related Data Home Medications Medication Instructions Recorded Confirmed Bisoprolol-Hctz 10-6.25 mg [Ziac 1 tab PO DAILY 09/29/15 03/16/18 10-6.25 MG] metFORMIN HCL 1,000 mg PO BID 09/29/15 03/16/18 ARIPiprazole [Abilify] 30 mg PO HS 10/30/16 03/16/18 Aspirin [Adult Low Dose Aspirin EC] 81 mg PO DAILY 10/30/16 03/16/18 Gemfibrozil [Lopid] 600 mg PO AC-BID 10/30/16 03/16/18 Glimepiride [Amaryl] 2 mg PO AC-BRKFST 10/30/16 03/16/18 Naproxen [Naprosyn] 500 mg PO BID 10/30/16 03/16/18 Omeprazole 20 mg PO BID 10/30/16 03/16/18 Potassium Chloride ER [K-Dur 10] 10 meq PO BID 10/30/16 03/16/18 Topiramate [Trokendi Xr] 100 mg PO DAILY 10/30/16 03/16/18 lamoTRIgine [LaMICtal] 100 mg PO DAILY 10/30/16 03/16/18 levETIRAcetam [Keppra] 500 mg PO BID 10/30/16 03/16/18 FLUoxetine HCL [PROzac] 80 mg PO DAILY 03/02/17 03/16/18 Furosemide [Lasix] 20 mg PO DAILY 03/02/17 03/16/18 [place] Carbonate 600 mg PO HS 03/02/17 03/16/18 Rosuvastatin Calcium [Crestor] 40 mg PO HS 03/02/17 03/16/18 metFORMIN HCL [Metformin HCl] 500 mg PO QAM 03/02/17 03/16/18 Propranolol HCl [Inderal Xl] 80 mg PO DAILY 06/08/17 03/16/18 busPIRone HCL 5 mg PO Q8H 06/08/17 03/16/18 Benztropine Mesylate [Cogentin] 1 mg PO HS 03/16/18 03/16/18 Butalb/APAP/Caff 50-325-40Mg 1 tab PO Q4H PRN 03/16/18 03/16/18 [Fioricet 50-325-40] Cyanocobalamin [Vitamin B-12 1,000 mcg SQ Q30D 03/16/18 03/16/18 Injection] Ergocalciferol [Vitamin D2] 50,000 unit PO Q14D 03/16/18 03/16/18 Ferrous Sulfate [Feosol] 325 mg PO DAILY 03/16/18 03/16/18 Gabapentin [Neurontin] 100 mg PO TID 03/16/18 03/16/18 Menthol/Zinc Oxide [Calmoseptine 1 applic TOPICAL 5XD PRN 03/16/18 03/16/18 Ointment] Nystatin 100,000Unit/gm Cream 1 applic TOPICAL BID 03/16/18 03/16/18 [Mycostatin Cream] Oxybutynin Chloride 5 mg PO BID 03/16/18 03/16/18 Allergies Allergy/AdvReac Type Severity Reaction Status Date / Time coconut oil Allergy Unknown Anaphylaxis Verified 06/03/18 18:58 pineapple [Pineapple] Allergy Unknown Anaphylaxis Verified 06/03/18 18:58 licorice Allergy Unknown Verified 06/03/18 18:58 Influenza Virus Vaccines AdvReac Nausea & Verified 06/03/18 18:58 Vomiting Review of Systems ROS Other: All systems not noted in ROS Statement are negative. <Melissa Meier - Last Filed: 06/04/18 02:32> ROS Other: All systems not noted in ROS Statement are negative. <Amanda Jean-Baptiste - Last Filed: 06/05/18 07:51> ROS Statement: Those systems with pertinent positive or pertinent negative responses have been documented in the HPI. Past Medical History Past Medical History: Diabetes Mellitus, Fibromyalgia, Hyperlipidemia, Hypertension, Musculoskeletal Disorder, Seizure Disorder Additional Past Medical History / Comment(s): borderline personality,benign liver cyst, previous cocaine use History of Any Multi-Drug Resistant Organisms: None Reported Past Surgical History: Cholecystectomy Past Anesthesia/Blood Transfusion Reactions: No Reported Reaction Past Psychological History: Anxiety, Bipolar, Depression, Schizophrenia Smoking Status: Former smoker Past Alcohol Use History: None Reported Past Drug Use History: None Reported - Past Family History Father History Unknown: Yes Family Medical History: Myocardial Infarction ([place]) Additional Family Medical History / Comment(s): passed of [place] at 71 Mother History Unknown: Yes Family Medical History: Diabetes Mellitus Sister(s) History Unknown: Yes Family Medical History: COPD, Myocardial Infarction ([place]) Additional Family Medical History / Comment(s): fatal [place] at 50 <Melissa Meier - Last Filed: 06/04/18 02:32> General Exam Limitations: no limitations General appearance: alert, in no apparent distress, other (This is a well- developed, well-nourished adult female patient in no acute distress. Vital signs upon presentation are temperature 97.8F, pulse 70, respirations 18, blood pressure 134/68, pulse ox 99% on room air.) Eye exam: Present: normal appearance, PERRL, EOMI. Absent: scleral icterus, conjunctival injection, periorbital swelling ENT exam: Present: normal exam, normal oropharynx, mucous membranes moist Neck exam: Present: normal inspection. Absent: tenderness, meningismus, lymphadenopathy Respiratory exam: Present: normal lung sounds bilaterally. Absent: respiratory distress, wheezes, rales, rhonchi, stridor, chest wall tenderness Cardiovascular Exam: Present: regular rate, normal rhythm, normal heart sounds. Absent: systolic murmur, diastolic murmur, rubs, gallop, clicks GI/Abdominal exam: Present: soft, normal bowel sounds. Absent: distended, tenderness, guarding, rebound, rigid Neurological exam: Present: alert, oriented X3, CN II-XII intact, other ( Strength in all 4 extremities is 5/5.) Psychiatric exam: Present: normal mood, flat affect Skin exam: Present: warm, dry, intact, normal color. Absent: rash <Melissa Meier - Last Filed: 06/04/18 02:32> Vital Signs 06/03/18 06/03/18 06/03/18 18:50 20:19 22:15 Temperature 97.8 F Pulse Rate 70 75 69 Respiratory 18 16 16 Rate Blood Pressure 134/68 118/64 125/64 O2 Sat by Pulse 99 96 96 Oximetry 06/03/18 23:04 Temperature Pulse Rate 70 Respiratory 16 Rate Blood Pressure 130/63 O2 Sat by Pulse 96 Oximetry Medical Decision Making - Lab Data Result diagrams: 06/03/18 19:12 06/03/18 19:12 - EKG Data -: EKG Interpreted by [facility] - Radiology Data Radiology results: report reviewed, image reviewed <Melissa Meier - Last Filed: 06/04/18 02:32> - Lab Data Result diagrams: 06/03/18 19:12 06/03/18 19:12 <Amanda Jean-Baptiste - Last Filed: 06/05/18 07:51> - Medical Decision Making 52-year-old female patient percents to the emergency department today for evaluation after having what friends reported to be a seizure. Physical examination is unremarkable. Patient is neurologically intact. Patient also reported some mild chest discomfort. Labs reviewed and were unremarkable. Troponin was negative. Chest x-ray showed no acute cardio pulmonary process. EKG showed normal sinus rhythm with a prolonged QT interval. Upon reevaluation patient is feeling well. She is comfortable being discharged home at this time. She is instructed to follow-up with her neurologist for further evaluation and possible adjustment to her medications. She is instructed to follow-up with her primary care physician for recheck in 1-2 days. Return parameters were discussed in detail per she verbalizes understanding and agrees with this plan. (Melissa Meier) I was available for consultation in the emergency department. The history and physical exam were done by the midlevel provider. I was consulted for this patient's care. I reviewed the case with the midlevel provider and based on their presentation of the patient, I agree with the assessment, medical decision making and plan of care as documented. (Amanda Jean-Baptiste) - Lab Data Lab Results 06/03/18 06/03/18 06/03/18 Range/Units 19:12 19:12 19:12 WBC 10.0 (3.8-10.6) k/uL RBC 4.17 (3.80-5.40) m/uL Hgb 11.7 (11.4-16.0) gm/dL Hct 35.8 (34.0-46.0) % MCV 85.9 (80.0-100.0) fL MCH 28.1 (25.0-35.0) pg MCHC 32.8 (31.0-37.0) g/dL RDW 16.2 H (11.5-15.5) % Plt Count 217 (150-450) k/uL Neutrophils % 66 % Lymphocytes % 23 % Monocytes % 3 % Eosinophils % 5 % Basophils % 1 % Neutrophils # 6.6 (1.3-7.7) k/uL Lymphocytes # 2.3 (1.0-4.8) k/uL Monocytes # 0.3 (0-1.0) k/uL Eosinophils # 0.5 (0-0.7) k/uL Basophils # 0.1 (0-0.2) k/uL Anisocytosis Slight PT (9.0-12.0) sec INR (<1.2) APTT (22.0-30.0) sec Sodium 137 (137-145) mmol/L Potassium 4.2 (3.5-5.1) mmol/L Chloride 101 (98-107) mmol/L Carbon Dioxide 25 (22-30) mmol/L Anion Gap 11 mmol/L BUN 14 (7-17) mg/dL Creatinine 0.78 (0.52-1.04) mg/dL Est GFR (CKD-EPI)AfAm >90 (>60 ml/min/1.73 sqM) Est GFR (CKD-EPI)NonAf 89 (>60 ml/min/1.73 sqM) Glucose 191 H (74-99) mg/dL Calcium 9.2 (8.4-10.2) mg/dL Total Bilirubin 0.6 (0.2-1.3) mg/dL AST 32 (14-36) U/L ALT 31 (9-52) U/L Alkaline Phosphatase 80 (38-126) U/L Total Creatine Kinase 34 (30-135) U/L CK-MB (CK-2) 0.6 (0.0-2.4) ng/mL CK-MB (CK-2) Rel Index 1.8 Troponin I <0.012 (0.000-0.034) ng/mL Total Protein 6.5 (6.3-8.2) g/dL Albumin 3.9 (3.5-5.0) g/dL Serum Alcohol <10 mg/dL 06/03/18 Range/Units 19:12 WBC (3.8-10.6) k/uL RBC (3.80-5.40) m/uL Hgb (11.4-16.0) gm/dL Hct (34.0-46.0) % MCV (80.0-100.0) fL MCH (25.0-35.0) pg MCHC (31.0-37.0) g/dL RDW (11.5-15.5) % Plt Count (150-450) k/uL Neutrophils % % Lymphocytes % % Monocytes % % Eosinophils % % Basophils % % Neutrophils # (1.3-7.7) k/uL Lymphocytes # (1.0-4.8) k/uL Monocytes # (0-1.0) k/uL Eosinophils # (0-0.7) k/uL Basophils # (0-0.2) k/uL Anisocytosis PT 10.1 (9.0-12.0) sec INR 1.0 (<1.2) APTT 23.6 (22.0-30.0) sec Sodium (137-145) mmol/L Potassium (3.5-5.1) mmol/L Chloride (98-107) mmol/L Carbon Dioxide (22-30) mmol/L Anion Gap mmol/L BUN (7-17) mg/dL Creatinine (0.52-1.04) mg/dL Est GFR (CKD-EPI)AfAm (>60 ml/min/1.73 sqM) Est GFR (CKD-EPI)NonAf (>60 ml/min/1.73 sqM) Glucose (74-99) mg/dL Calcium (8.4-10.2) mg/dL Total Bilirubin (0.2-1.3) mg/dL AST (14-36) U/L ALT (9-52) U/L Alkaline Phosphatase (38-126) U/L Total Creatine Kinase (30-135) U/L CK-MB (CK-2) (0.0-2.4) ng/mL CK-MB (CK-2) Rel Index Troponin I (0.000-0.034) ng/mL Total Protein (6.3-8.2) g/dL Albumin (3.5-5.0) g/dL Serum Alcohol mg/dL - EKG Data EKG Comments: EKG obtained in 192 shows normal sinus rhythm with a prolonged QT interval. Ventricular rate is 72, AK interval 138, QR buddhism 88, QTC 452, QTc 494. No evidence of ST elevation or depression. (Melissa Meier) - Radiology Data Two-view x-ray of the chest is obtained. Heart media Starmer normal. Lungs are clear. Diaphragm is normal. Bony thorax appears normal. Impression by Dr. Canales shows normal chest with no change. (Melissa Meier) Disposition Is patient prescribed a controlled substance at d/c from ED?: No Time of Disposition: 22:40 <Melissa Meier - Last Filed: 06/04/18 02:32> <Amanda Jean-Baptiste - Last Filed: 06/05/18 07:51> Clinical Impression: Seizure Disposition: HOME SELF-CARE Condition: Good Instructions: Recurrent Seizures in Adults (ED) Additional Instructions: Follow-up with your neurologist for recheck as soon as possible. Take medications as directed. Return here immediately for any new, worsening, or concerning symptoms. Referrals: Teresa Singh MD [STAFF PHYSICIAN] - 1-2 days
--- NOTE | 2018-06-03 19:42 | XR ---
EXAMINATION TYPE: XR chest 2V DATE OF EXAM: 06/03/2018 COMPARISON: 10/29/2016 HISTORY: Seizures TECHNIQUE: Frontal and lateral views of the chest are obtained. FINDINGS: Heart and mediastinum are normal. Lungs are clear. Diaphragm is normal. Bony thorax appear s normal. IMPRESSION: Normal chest. No change.
[2018-06-03 20:44] LABS: Anisocytosis Slight; Basophils # (A) 0.1 k/uL (0-0.2); Basophils % (A) 1 %; Eosinophils # (A) 0.5 k/uL (0-0.7); Eosinophils % (A) 5 %; HCT 35.8 % (34.0-46.0); HGB 11.7 gm/dL (11.4-16.0); Lymphocytes # (A) 2.3 k/uL (1.0-4.8); Lymphocytes % (A) 23 %; MCH 28.1 pg (25.0-35.0); MCHC 32.8 g/dL (31.0-37.0); MCV 85.9 fL (80.0-100.0); Mean Platelet Volume 6.5; Monocytes # (A) 0.3 k/uL (0-1.0); Monocytes % (A) 3 %; Neutrophils # (A) 6.6 k/uL (1.3-7.7); Neutrophils % (A) 66 %; Platelet Count 217 k/uL (150-450); RBC 4.17 m/uL (3.80-5.40); RDW 16.2 % (11.5-15.5)
[2018-06-03 20:46] VITALS: RESP 16
[2018-06-03 20:54] LABS: ALT 31 U/L (9-52); AST 32 U/L (14-36); Albumin 3.9 g/dL (3.5-5.0); Alcohol <10 mg/dL; Alkaline Phosphatase 80 U/L (38-126); Anion Gap 11 mmol/L; Blood Urea Nitrogen 14 mg/dL (7-17); Calcium 9.2 mg/dL (8.4-10.2); Carbon Dioxide 25 mmol/L (22-30); Chloride 101 mmol/L (98-107); Glucose 191 mg/dL (74-99); Potassium 4.2 mmol/L (3.5-5.1); Sodium 137 mmol/L (137-145); Total Bilirubin 0.6 mg/dL (0.2-1.3); Total Protein 6.5 g/dL (6.3-8.2)
[2018-06-03 21:01] LABS: Creatine Kinase 34 U/L (30-135)
[2018-06-03 21:07] LABS: Partial Thromboplastin Time 23.6 sec (22.0-30.0); Prothrombin Time 10.1 sec (9.0-12.0)
[2018-06-03 21:14] LABS: Creatine Kinase MB 0.6 ng/mL (0.0-2.4); Troponin I <0.012 ng/mL (0.000-0.034)
[2018-06-03 23:04] VITALS: BP 130/63; PULSE 70
== END 2018-06-03 23:04 | disposition home or self-care (01) ==
LOC: EC 18:41
DX: G40.909 Epilepsy, unspecified, not intractable, without status epilepticus (principal); R07.89 Other chest pain; E11.9 Type 2 diabetes mellitus without complications; E78.5 Hyperlipidemia, unspecified; M79.7 Fibromyalgia; I10 Essential (primary) hypertension; F31.9 Bipolar disorder, unspecified; F20.9 Schizophrenia, unspecified; F41.9 Anxiety disorder, unspecified; F60.3 Borderline personality disorder; Z87.891 Personal history of nicotine dependence; Z79.82 Long term (current) use of aspirin; Z79.84 Long term (current) use of oral hypoglycemic drugs; Z79.899 Other long term (current) drug therapy; Z88.7 Allergy status to serum and vaccine; Z91.018 Allergy to other foods
CPT/HCPCS: 99285; 96360; 36415; 93005; 80053; 82550; 82553; 84484; 85025; 85610; 85730; 71046; G0480; 80320

== ENCOUNTER 2019-05-30 13:40 | Emergency (ER) | payer MEDICARE, OTHER ==
[2019-05-30] MEDS ORDERED: SODIUM CHLORIDE 0.9% 1,000 ML IV STA (14:01)
--- NOTE | 2019-05-30 14:33 | ED ---
General Adult HPI - General Chief complaint: Psychiatric Symptoms Stated complaint: Suicidal Time Seen by Provider: 05/30/19 13:48 Source: patient, RN notes reviewed, old records reviewed Mode of arrival: ambulatory Limitations: no limitations - History of Present Illness Initial comments: 53-year-old female patient past history significant for psychiatric disorder, presents to ED for chief complaint of suicidal ideations. Patient port that she does not want to live anymore. Patient reports that approximately 4 days ago she took 20 of her Prozac pills. Patient reports that this morning she took approximately 1500 mg of her lithium. Patient also reports she did a superficial cut to her left wrist region. Patient denies any physical complaints at this time. Patient denies any other complaints. Systemic: Pt denies fatigue, fever/chills, rash. Pt denies weakness, night sweats, weight loss. Neuro: Pt denies headache, visual disturbances, syncope or pre-syncope. HEENT: Pt denies ocular discharge or irritation, otalgia, rhinorrhea, pharyngitis or notable lymphadenopathy. Cardiopulmonary: Pt denies chest pain, SOB, heart palpitations, dyspnea on exertion. Abdominal/GI: Pt denies abdominal pain, n/v/d. : Pt denies dysuria, burning w/ urination, frequency/urgency. Denies new onset urinary or bowel incontinence. MSK: Pt denies myalgia, loss of strength or function in extremities. Neuro: Pt denies new onset weakness, paresthesias. - Related Data Home Medications Medication Instructions Recorded Confirmed Bisoprolol-Hctz 10-6.25 mg [Ziac 1 tab PO DAILY 09/29/15 05/30/19 10-6.25 MG] metFORMIN HCL 1,000 mg PO BID 09/29/15 05/30/19 ARIPiprazole [Abilify] 30 mg PO HS 10/30/16 05/30/19 Glimepiride [Amaryl] 2 mg PO AC-BRKFST 10/30/16 05/30/19 Naproxen [Naprosyn] 500 mg PO BID 10/30/16 05/30/19 lamoTRIgine [LaMICtal] 100 mg PO BID 10/30/16 05/30/19 FLUoxetine HCL [PROzac] 80 mg PO DAILY 03/02/17 05/30/19 [place] Carbonate 600 mg PO HS 03/02/17 05/30/19 Rosuvastatin Calcium [Crestor] 40 mg PO HS 03/02/17 05/30/19 Nystatin 100,000Unit/gm Cream 1 applic TOPICAL BID 03/16/18 05/30/19 [Mycostatin Cream] Oxybutynin Chloride 5 mg PO BID 03/16/18 05/30/19 Docusate [Colace] 100 mg PO DAILY PRN 05/30/19 05/30/19 Hydrocortisone [Anusol-Hc] 1 applic RECTAL QID 05/30/19 05/30/19 Levothyroxine Sodium [Synthroid] 50 mcg PO DAILY 05/30/19 05/30/19 Allergies Allergy/AdvReac Type Severity Reaction Status Date / Time coconut oil Allergy Unknown Anaphylaxis Verified 05/30/19 20:06 pineapple [Pineapple] Allergy Unknown Anaphylaxis Verified 05/30/19 20:06 licorice Allergy Unknown Verified 05/30/19 20:06 Influenza Virus Vaccines AdvReac Nausea & Verified 05/30/19 20:06 Vomiting Review of Systems ROS Statement: Those systems with pertinent positive or pertinent negative responses have been documented in the HPI. ROS Other: All systems not noted in ROS Statement are negative. Past Medical History Past Medical History: Diabetes Mellitus, Fibromyalgia, Hyperlipidemia, Hyperten meri, Musculoskeletal Disorder, Seizure Disorder Additional Past Medical History / Comment(s): borderline personality,benign liver cyst, previous cocaine use History of Any Multi-Drug Resistant Organisms: None Reported Past Surgical History: Cholecystectomy Past Anesthesia/Blood Transfusion Reactions: No Reported Reaction Past Psychological History: Anxiety, Bipolar, Depression, Schizophrenia Smoking Status: Current every day smoker Past Alcohol Use History: None Reported Past Drug Use History: None Reported - Past Family History Father History Unknown: Yes Family Medical History: Myocardial Infarction ([place]) Additional Family Medical History / Comment(s): passed of [place] at 71 Mother History Unknown: Yes Family Medical History: Diabetes Mellitus Sister(s) History Unknown: Yes Family Medical History: COPD, Myocardial Infarction ([place]) Additional Family Medical History / Comment(s): fatal [place] at 50 General Exam - General Exam Comments Initial Comments: Constitutional: NAD, AOX3, Pt has pleasant affect. HEENT: NC/AT, trachea midline, neck supple, no lymphadenopathy. Posterior pharynx non erythematous, without exudates. External ears appear normal, without discharge. Mucous membranes moist. Eyes PERRLA, EOM intact. There is no scleral icterus. No pallor noted. Cardiopulmonary: RRR, no murmurs, rubs or gallops, no JVD noted. Lungs CTAB in anterior and posterior schroeder. No peripheral edema. Abdominal exam: Abdomen soft and non-distended. Abdomen non-tender to palpation in all 4 quadrants. Bowel sounds active in LLQ. No hepatosplenomegaly. No ecchymosis Neuro: CN II-XII grossly intact. No nuchal rigidity. No raccon eyes, no oneil sign, no hemotympanum. No cervical spinal tenderness. MSK: No posterior calf tenderness bilaterally, homans sign negative bilaterally. Posterior tibialis and radial pulse +2 bilaterally. Sensation intact in upper and lower extremities. Full active ROM in upper and lower extremities, 5/5 stregnth. Derm: Superficial laceration to right wrist region, does not require closure, cleaned and bandaged in ED. Limitations: no limitations Course Vital Signs 05/30/19 05/30/19 05/30/19 13:45 15:00 15:30 Temperature 98.3 F Pulse Rate 82 76 73 Respiratory 18 18 16 Rate Blood Pressure 137/89 120/75 125/76 O2 Sat by Pulse 99 94 L 96 Oximetry 05/30/19 05/30/19 05/30/19 16:00 16:30 17:00 Temperature Pulse Rate 71 68 66 Respiratory 16 15 13 Rate Blood Pressure 138/83 136/77 139/91 O2 Sat by Pulse 97 98 98 Oximetry 05/30/19 05/30/19 05/30/19 17:30 18:00 19:00 Temperature 98.6 F Pulse Rate 69 70 71 Respiratory 15 10 L 16 Rate Blood Pressure 139/88 152/93 153/90 O2 Sat by Pulse 97 98 98 Oximetry 05/30/19 05/30/19 05/31/19 20:00 21:00 03:30 Temperature 98.4 F 98.4 F 98.8 F Pulse Rate 68 68 73 Respiratory 17 18 18 Rate Blood Pressure 146/83 140/80 148/83 O2 Sat by Pulse 97 96 95 Oximetry Medical Decision Making - Medical Decision Making 53-year-old female patient with a chief complaint of suicidal ideations, superficial laceration to right wrist, patient also reports that she took more than her allotted dose of lithium this morning as well as Prozac approximate 4 days ago. Patient is asymptomatic at this time. Patient will signs stable. Physical exam did not display acute pathology. Labs investigations noncompressive. EKG not concerning for acute ischemia. [place] level 0.5. Poison control contacted and they recommended salicylates, Tylenol, lithium level, EKG. Also recommended repeat lithium level in approximately 6 hours after initial draw. Patient signed out to nurse practitioner Melissa Meier pending repeat lithium level and EPS evaluation. Pt was evaluated by EPS and they reccomended transfer to [facility]. Case discussed with Dr. Lorenzana. - Lab Data Result diagrams: 05/30/19 14:53 05/30/19 14:53 Lab Results 05/30/19 05/30/19 05/30/19 Range/Units 14:53 14:53 15:35 WBC 10.9 H (3.8-10.6) k/uL RBC 4.08 (3.80-5.40) m/uL Hgb 11.9 (11.4-16.0) gm/dL Hct 35.2 (34.0-46.0) % MCV 86.4 (80.0-100.0) fL MCH 29.2 (25.0-35.0) pg MCHC 33.8 (31.0-37.0) g/dL RDW 16.0 H (11.5-15.5) % Plt Count 241 (150-450) k/uL Neutrophils % 74 % Lymphocytes % 17 % Monocytes % 4 % Eosinophils % 4 % Basophils % 1 % Neutrophils # 8.0 H (1.3-7.7) k/uL Lymphocytes # 1.8 (1.0-4.8) k/uL Monocytes # 0.4 (0-1.0) k/uL Eosinophils # 0.4 (0-0.7) k/uL Basophils # 0.1 (0-0.2) k/uL Anisocytosis Slight Sodium 139 (137-145) mmol/L Potassium 3.5 (3.5-5.1) mmol/L Chloride 103 (98-107) mmol/L Carbon Dioxide 27 (22-30) mmol/L Anion Gap 9 mmol/L BUN 10 (7-17) mg/dL Creatinine 0.73 (0.52-1.04) mg/dL Est GFR (CKD-EPI)AfAm >90 (>60 ml/min/1.73 sqM) Est GFR (CKD-EPI)NonAf >90 (>60 ml/min/1.73 sqM) Glucose 107 H (74-99) mg/dL Calcium 9.6 (8.4-10.2) mg/dL Total Bilirubin 0.4 (0.2-1.3) mg/dL AST 29 (14-36) U/L ALT 31 (9-52) U/L Alkaline Phosphatase 94 (38-126) U/L Total Protein 6.5 (6.3-8.2) g/dL Albumin 3.7 (3.5-5.0) g/dL Urine HCG, Qual (Not Detectd) Salicylates <1.0 mg/dL Urine Opiates Screen Not Detected (NotDetected) Ur Oxycodone Screen Not Detected (NotDetected) Urine Methadone Screen Not Detected (NotDetected) Ur Propoxyphene Screen Not Detected (NotDetected) Acetaminophen <10.0 ug/mL Ur Barbiturates Screen Not Detected (NotDetected) U Tricyclic Antidepress Not Detected (NotDetected) Ur Phencyclidine Scrn Not Detected (NotDetected) Ur Amphetamines Screen Not Detected (NotDetected) U Methamphetamines Scrn Not Detected (NotDetected) U Benzodiazepines Scrn Detected H (NotDetected) [place] 0.5 mmol/L Urine Cocaine Screen Not Detected (NotDetected) U Marijuana (THC) Screen Not Detected (NotDetected) Serum Alcohol <10 mg/dL 05/30/19 05/30/19 Range/Units 15:35 21:03 WBC (3.8-10.6) k/uL RBC (3.80-5.40) m/uL Hgb (11.4-16.0) gm/dL Hct (34.0-46.0) % MCV (80.0-100.0) fL MCH (25.0-35.0) pg MCHC (31.0-37.0) g/dL RDW (11.5-15.5) % Plt Count (150-450) k/uL Neutrophils % % Lymphocytes % % Monocytes % % Eosinophils % % Basophils % % Neutrophils # (1.3-7.7) k/uL Lymphocytes # (1.0-4.8) k/uL Monocytes # (0-1.0) k/uL Eosinophils # (0-0.7) k/uL Basophils # (0-0.2) k/uL Anisocytosis Sodium (137-145) mmol/L Potassium (3.5-5.1) mmol/L Chloride (98-107) mmol/L Carbon Dioxide (22-30) mmol/L Anion Gap mmol/L BUN (7-17) mg/dL Creatinine (0.52-1.04) mg/dL Est GFR (CKD-EPI)AfAm (>60 ml/min/1.73 sqM) Est GFR (CKD-EPI)NonAf (>60 ml/min/1.73 sqM) Glucose (74-99) mg/dL Calcium (8.4-10.2) mg/dL Total Bilirubin (0.2-1.3) mg/dL AST (14-36) U/L ALT (9-52) U/L Alkaline Phosphatase (38-126) U/L Total Protein (6.3-8.2) g/dL Albumin (3.5-5.0) g/dL Urine HCG, Qual Not Detected (Not Detectd) Salicylates mg/dL Urine Opiates Screen (NotDetected) Ur Oxycodone Screen (NotDetected) Urine Methadone Screen (NotDetected) Ur Propoxyphene Screen (NotDetected) Acetaminophen ug/mL Ur Barbiturates Screen (NotDetected) U Tricyclic Antidepress (NotDetected) Ur Phencyclidine Scrn (NotDetected) Ur Amphetamines Screen (NotDetected) U Methamphetamines Scrn (NotDetected) U Benzodiazepines Scrn (NotDetected) [place] 0.4 mmol/L Urine Cocaine Screen (NotDetected) U Marijuana (THC) Screen (NotDetected) Serum Alcohol mg/dL - EKG Data -: EKG Interpreted by Me (and Dr. Guardado) EKG Comments: Ventricular rate 73, patient follow 186, QRS 92, QT/QTC 46 and 47. Centrum, normal EKG, no concern for acute ischemia. Disposition Clinical Impression: Psychiatric disturbance Disposition: OTHER INSTITUTION NOT DEFINED Condition: Serious Is patient prescribed a controlled substance at d/c from ED?: No [facility] - 1-2 days - Out of Hospital Transfer - Req. Specs Out of Hospital Transfer - Requested Specifics: Psychiatric Non-ICU (Transferred to [facility])
[2019-05-30] MEDS ORDERED: DIPH,PERTUS(ACELL)TETVAC-LF 0.5 ML VIAL IM ONE (14:34)
[2019-05-30 15:07] LABS: Anisocytosis Slight; Basophils # (A) 0.1 k/uL (0-0.2); Basophils % (A) 1 %; Eosinophils # (A) 0.4 k/uL (0-0.7); Eosinophils % (A) 4 %; HCT 35.2 % (34.0-46.0); HGB 11.9 gm/dL (11.4-16.0); Lymphocytes # (A) 1.8 k/uL (1.0-4.8); Lymphocytes % (A) 17 %; MCH 29.2 pg (25.0-35.0); MCHC 33.8 g/dL (31.0-37.0); MCV 86.4 fL (80.0-100.0); Mean Platelet Volume 6.4; Monocytes # (A) 0.4 k/uL (0-1.0); Monocytes % (A) 4 %; Neutrophils % (A) 74 %; Platelet Count 241 k/uL (150-450); RBC 4.08 m/uL (3.80-5.40); WBC 10.9 k/uL (3.8-10.6)
[2019-05-30 15:18] LABS: ALT 31 U/L (9-52); AST 29 U/L (14-36); Acetaminophen <10.0 ug/mL; African American GFR (CKD) >90 (>60 ml/min/1.73 sqM); Albumin 3.7 g/dL (3.5-5.0); Alcohol <10 mg/dL; Alkaline Phosphatase 94 U/L (38-126); Anion Gap 9 mmol/L; Blood Urea Nitrogen 10 mg/dL (7-17); Calcium 9.6 mg/dL (8.4-10.2); Carbon Dioxide 27 mmol/L (22-30); Chloride 103 mmol/L (98-107); Glucose 107 mg/dL (74-99); Lithium 0.5 mmol/L; Potassium 3.5 mmol/L (3.5-5.1); Salicylate <1.0 mg/dL; Sodium 139 mmol/L (137-145); Total Bilirubin 0.4 mg/dL (0.2-1.3); Total Protein 6.5 g/dL (6.3-8.2)
[2019-05-30 16:22] LABS: Amphetamine Screen,Urine Not Detected (NotDetected); Barbiturate Screen,Urine Not Detected (NotDetected); Benzodiazepines Screen,Urine Detected (NotDetected); Cocaine Screen,Urine Not Detected (NotDetected); Methadone Screen, Urine Not Detected (NotDetected); Opiate Screen,Urine Not Detected (NotDetected); Oxycodone Screen, Urine Not Detected (NotDetected); Phencyclidine Screen,Urine Not Detected (NotDetected); Tricyclic Antidepressant,Urine Not Detected (NotDetected); Urn Cannabinoid Scrn Not Detected (NotDetected)
[2019-05-30 22:02] VITALS: RESP 18
[2019-05-31 11:07] VITALS: BP 132/84; PULSE 72; TEMP 98.3
== END 2019-05-31 11:00 | disposition other institution (70) ==
LOC: EC 13:40
DX: F99 Mental disorder, not otherwise specified (principal); S61.511A Laceration without foreign body of right wrist, initial encounter; E11.9 Type 2 diabetes mellitus without complications; E78.5 Hyperlipidemia, unspecified; I10 Essential (primary) hypertension; G40.909 Epilepsy, unspecified, not intractable, without status epilepticus; F41.9 Anxiety disorder, unspecified; F31.9 Bipolar disorder, unspecified; F20.9 Schizophrenia, unspecified; F17.200 Nicotine dependence, unspecified, uncomplicated; Z23 Encounter for immunization; Z79.84 Long term (current) use of oral hypoglycemic drugs; Z79.1 Long term (current) use of non-steroidal anti-inflammatories (NSAID); Z79.890 Hormone replacement therapy; Z79.899 Other long term (current) drug therapy; Z91.018 Allergy to other foods; Z88.7 Allergy status to serum and vaccine; X78.9XXA Intentional self-harm by unspecified sharp object, initial encounter
CPT/HCPCS: 99285 ×2; 90471 ×2; 96360 ×2; 82075; 36415; 93005; 80053; 80178; 85025; 81025; 80306; 83520; 90715; G0480 ×2; 80320; 80329

== ENCOUNTER → 2019-08-10 | Outpatient (CLI) | payer MEDICARE, OTHER ==
[2019-08-10 17:01] LABS: African American GFR (CKD) 98.9 (60.0-200.0); Chol/HDL Ratio 5.24; Lithium 0.7 mmol/L (0.5-1.2); Non-African American GFR(CKD) 85.4 (60.0-200.0); T4, Free (Free Thyroxine) 0.9 ng/dL (0.80-1.80)
== END | disposition home or self-care (01) ==
LOC: LABWHC1 09:29
PROVIDERS: ATTEND Psychiatry & Neurology Psychiatry
DX: Z51.81 Encounter for therapeutic drug level monitoring (principal); Z79.899 Other long term (current) drug therapy
CPT/HCPCS: 36415; 80061; 80178; 82565; 82947; 83721; 84439; 84443; 84520

== ENCOUNTER 2019-09-25 13:10 | Emergency (ER) | payer MEDICARE, OTHER ==
[2019-09-25] MEDS ORDERED: KETOROLAC 60 MG/2 ML VIAL IM STA (14:06)
--- NOTE | 2019-09-25 14:15 | ED ---
General Adult HPI - General Chief complaint: Fall Stated complaint: fall Time Seen by Provider: 09/25/19 13:40 Source: patient, RN notes reviewed, old records reviewed Mode of arrival: wheelchair Limitations: no limitations - History of Present Illness Initial comments: This a 53-year-old female who slipped on the ice and twisted her left ankle. Patient complains of swelling and tenderness to the lateral aspect of her left ankle. Patient denies any upper leg pain patient denies any other injury. Patient denies hitting her head or hurting her neck. Patient denies any numbness or weakness. - Related Data Home Medications Medication Instructions Recorded Confirmed Bisoprolol-Hctz 10-6.25 mg [Ziac 1 tab PO DAILY 09/29/15 05/30/19 10-6.25 MG] metFORMIN HCL 1,000 mg PO BID 09/29/15 05/30/19 ARIPiprazole [Abilify] 30 mg PO HS 10/30/16 05/30/19 Glimepiride [Amaryl] 2 mg PO AC-BRKFST 10/30/16 05/30/19 Naproxen [Naprosyn] 500 mg PO BID 10/30/16 05/30/19 lamoTRIgine [LaMICtal] 100 mg PO BID 10/30/16 05/30/19 FLUoxetine HCL [PROzac] 80 mg PO DAILY 03/02/17 05/30/19 Muse Carbonate 600 mg PO HS 03/02/17 05/30/19 Rosuvastatin Calcium [Crestor] 40 mg PO HS 03/02/17 05/30/19 Nystatin 100,000Unit/gm Cream 1 applic TOPICAL BID 03/16/18 05/30/19 [Mycostatin Cream] Oxybutynin Chloride 5 mg PO BID 03/16/18 05/30/19 Docusate [Colace] 100 mg PO DAILY PRN 05/30/19 05/30/19 Hydrocortisone [Anusol-Hc] 1 applic RECTAL QID 05/30/19 05/30/19 Levothyroxine Sodium [Synthroid] 50 mcg PO DAILY 05/30/19 05/30/19 Allergies Allergy/AdvReac Type Severity Reaction Status Date / Time coconut oil Allergy Unknown Anaphylaxis Verified 09/25/19 13:43 pineapple [Pineapple] Allergy Unknown Anaphylaxis Verified 09/25/19 13:43 licorice Allergy Unknown Verified 09/25/19 13:43 Influenza Virus Vaccines AdvReac Nausea & Verified 09/25/19 13:43 Vomiting Review of Systems ROS Statement: Those systems with pertinent positive or pertinent negative responses have been documented in the HPI. ROS Other: All systems not noted in ROS Statement are negative. Past Medical History Past Medical History: Diabetes Mellitus, Fibromyalgia, Hyperlipidemia, Hypertension, Musculoskeletal Disorder, Seizure Disorder Additional Past Medical History / Comment(s): borderline personality,benign liver cyst, previous cocaine use History of Any Multi-Drug Resistant Organisms: None Reported Past Surgical History: Cholecystectomy Past Anesthesia/Blood Transfusion Reactions: No Reported Reaction Past Psychological History: Anxiety, Bipolar, Depression, Schizophrenia Smoking Status: Former smoker Past Alcohol Use History: None Reported Past Drug Use History: None Reported - Past Family History Father History Unknown: Yes Family Medical History: Myocardial Infarction ([place]) Additional Family Medical History / Comment(s): passed of [place] at 71 Mother History Unknown: Yes Family Medical History: Diabetes Mellitus Sister(s) History Unknown: Yes Family Medical History: COPD, Myocardial Infarction ([place]) Additional Family Medical History / Comment(s): fatal [place] at 50 General Exam - General Exam Comments Initial Comments: GENERAL Patient is well-developed and well-nourished. Patient is in mild distress. EYES Patient's pupils are equal and round. Extraocular motion is intact SKIN Unremarkable NEURO The patient is alert and oriented 3 PYSCH Patient has normal interpersonal interactions. MUSCULOSKELETAL Swelling to the left lateral ankle with some tenderness Limitations: no limitations Course Vital Signs 09/25/19 13:39 Temperature 97.7 F Pulse Rate 75 Respiratory 18 Rate Blood Pressure 100/64 O2 Sat by Pulse 98 Oximetry Procedures - Orthopedic Splinting/Casting Injury #1 Side: left Lower Extremity Injury Location: short leg, ankle Lower Extremity Immobilizer: posterior splint Medical Decision Making - Medical Decision Making Patient's x-ray of the left ankle shows a distal reveal a fracture. I placed a splint on the patient patient follow up with orthopedic. Patient will be nonweightbearing. Patient states she understands. Disposition Clinical Impression: Fracture of distal fibula Disposition: HOME SELF-CARE Instructions (If sedation given, give patient instructions): Ankle Fracture (ED) Additional Instructions: Patient should follow-up with [facility] sent as possible. Patient should be nonweightbearing and use crutches. Is patient prescribed a controlled substance at d/c from ED?: No Referrals: None,Stated [REFERRING] - 1-2 days Rancho Merchant MD [STAFF PHYSICIAN] - 1-2 days Time of Disposition: 15:32
--- NOTE | 2019-09-25 14:59 | XR ---
EXAMINATION TYPE: XR ankle complete LT DATE OF EXAM: 09/25/2019 COMPARISON: NONE HISTORY: 53-year-old female with trauma, fall, pain TECHNIQUE: 3 views FINDINGS: Oblique fracture distal fibula without significant displacement. There seems to be some degenerative spurring anterior tibial talar joint. Lateral and anterior soft tissue swelling. Talar dome appears i ntact. Subtalar joint alignment. Small plantar calcaneal spur. IMPRESSION: Oblique, nondisplaced fracture distal fibula. Associated soft tissue swelling. There seem s to be some underlying mild tibiotalar joint OA.
[2019-09-25 15:50] VITALS: BP 108/79; PULSE 83; RESP 21; TEMP 98.1
== END 2019-09-25 15:50 | disposition home or self-care (01) ==
LOC: EC 13:10
DX: S82.832A Other fracture of upper and lower end of left fibula, initial encounter for closed fracture (principal); E11.9 Type 2 diabetes mellitus without complications; M79.7 Fibromyalgia; E78.5 Hyperlipidemia, unspecified; I10 Essential (primary) hypertension; G40.909 Epilepsy, unspecified, not intractable, without status epilepticus; F31.9 Bipolar disorder, unspecified; F20.9 Schizophrenia, unspecified; F41.9 Anxiety disorder, unspecified; Z87.891 Personal history of nicotine dependence; Z88.7 Allergy status to serum and vaccine; Z91.018 Allergy to other foods; Z91.048 Other nonmedicinal substance allergy status; Z79.1 Long term (current) use of non-steroidal anti-inflammatories (NSAID); Z79.52 Long term (current) use of systemic steroids; Z79.84 Long term (current) use of oral hypoglycemic drugs; Z79.890 Hormone replacement therapy; Z79.899 Other long term (current) drug therapy; W00.0XXA Fall on same level due to ice and snow, initial encounter; X50.1XXA Overexertion from prolonged static or awkward postures, initial encounter; Y92.89 Other specified places as the place of occurrence of the external cause
CPT/HCPCS: 73610; 99284; 29515; 96372; J1885

== ENCOUNTER 2020-03-27 10:48 | Emergency (ER) | payer MEDICARE, OTHER ==
--- NOTE | 2020-03-27 11:28 | ED ---
Psych HPI - General Chief Complaint: Psychiatric Symptoms Stated Complaint: Suicidal Time Seen by Provider: 03/27/20 10:50 Source: patient, EMS Mode of arrival: EMS - History of Present Illness Initial Comments: 54-year-old female presenting today for chief complaint of suicidal ideation with plan. Patient states that she struggles depression and is on 4 different psychiatric medications. Patient states that she has been thinking of overdosing on her home medications for the past 4 days. Patient states she did not overdose but wanted to come here for help. Admits to previous suicide attempts in the past. Patient states she has been compliant with her medications taking them as directed. She is on lithium, abilify, lamictal, prozac. Her psychiatrist is Dr. Mcpherson. Patient has no additional complaints, patient denies any recent fever, chills, shortness of breath, chest pain, back pain, abdominal pain, nausea or vomiting, numbness or tingling, dysuria or hematuria, constipation or diarrhea, headaches or visual changes, or any other complaints. - Related Data Home Medications Medication Instructions Recorded Confirmed metFORMIN HCL 1,000 mg PO BID 09/29/15 03/27/20 ARIPiprazole [Abilify] 30 mg PO HS 10/30/16 03/27/20 Glimepiride [Amaryl] 2 mg PO AC-BRKFST 10/30/16 03/27/20 Naproxen [Naprosyn] 500 mg PO BID 10/30/16 03/27/20 lamoTRIgine [LaMICtal] 100 mg PO BID 10/30/16 03/27/20 FLUoxetine HCL [PROzac] 80 mg PO DAILY 03/02/17 03/27/20 [place]wood Carbonate 600 mg PO HS 03/02/17 03/27/20 Oxybutynin Chloride 5 mg PO BID 03/16/18 03/27/20 Docusate [Colace] 100 mg PO DAILY PRN 05/30/19 03/27/20 Levothyroxine Sodium [Synthroid] 50 mcg PO DAILY 05/30/19 03/27/20 Atorvastatin [Lipitor] 20 mg PO HS 03/27/20 03/27/20 Cholecalciferol (Vitamin D3) 125 mcg PO DAILY 03/27/20 03/27/20 [Vitamin D3] Gemfibrozil [Lopid] 600 mg PO AC-BID 03/27/20 03/27/20 Losartan Potassium [Cozaar] 100 mg PO DAILY 03/27/20 03/27/20 Montelukast Sodium [Singulair] 10 mg PO HS 03/27/20 03/27/20 Propranolol [Inderal] 40 mg PO BID 03/27/20 03/27/20 amLODIPine [Norvasc] 10 mg PO DAILY 03/27/20 03/27/20 hydrOXYzine PAMOATE [Vistaril] 25 mg PO BID 03/27/20 03/27/20 sitaGLIPtin [Januvia] 50 mg PO DAILY 03/27/20 03/27/20 Allergies Allergy/AdvReac Type Severity Reaction Status Date / Time coconut oil Allergy Unknown Anaphylaxis Verified 03/27/20 10:54 pineapple [Pineapple] Allergy Unknown Anaphylaxis Verified 03/27/20 10:54 licorice Allergy Unknown Verified 03/27/20 10:54 Influenza Virus Vaccines AdvReac Nausea & Verified 03/27/20 10:54 Vomiting Review of Systems ROS Statement: Those systems with pertinent positive or pertinent negative responses have been documented in the HPI. ROS Other: All systems not noted in ROS Statement are negative. Past Medical History Past Medical History: Diabetes Mellitus, Fibromyalgia, Hyperlipidemia, Hypertension, Musculoskeletal Disorder, Seizure Disorder Additional Past Medical History / Comment(s): borderline personality,benign liver cyst, previous cocaine use History of Any Multi-Drug Resistant Organisms: None Reported Past Surgical History: Cholecystectomy Past Anesthesia/Blood Transfusion Reactions: No Reported Reaction Past Psychological History: Anxiety, Bipolar, Depression, Schizophrenia Smoking Status: Former smoker Past Alcohol Use History: None Reported Past Drug Use History: None Reported - Past Family History Father History Unknown: Yes Family Medical History: Myocardial Infarction ([place]) Additional Family Medical History / Comment(s): passed of [place] at 71 Mother History Unknown: Yes Family Medical History: Diabetes Mellitus Sister(s) History Unknown: Yes Family Medical History: COPD, Myocardial Infarction ([place]) Additional Family Medical History / Comment(s): fatal [place] at 50 General Exam - General Exam Comments Initial Comments: General: The patient is awake and alert, in no distress Eye: +3 mm pupils are equal, round and reactive to light, extra-ocular movements are intact. No nystagmus. There is normal conjunctiva bilaterally. No signs of icterus. Ears, nose, mouth and throat: There are moist mucous membranes and no oral lesions. Neck: The neck is supple, there is no tenderness or JVD. Cardiovascular: There is a regular rate and rhythm. No murmur, rub or gallop is appreciated. Respiratory: Lungs are clear to auscultation, respirations are non-labored, breath sounds are equal. No wheezes, stridor, rales, or rhonchi. Gastrointestinal: Soft, non-distended, non-tender abdomen without masses or organomegaly noted. There is no rebound or guarding present. Musculoskeletal: Normal ROM, no tenderness. Strength 5/5. Sensation intact. Radial pulses equal bilaterally 2+. Neurological: A&O x 3. CN II-XII intact grossly, There are no obvious motor or sensory deficits. Coordination appears grossly intact. Speech is normal. Skin: Skin is warm and dry and no rashes or lesions are noted. Psychiatric: Cooperative,flat affect Limitations: no limitations Course Vital Signs 03/27/20 03/27/20 10:49 12:45 Temperature 98.1 F 97.8 F Pulse Rate 79 78 Respiratory 18 16 Rate Blood Pressure 122/82 128/74 O2 Sat by Pulse 96 98 Oximetry - Reevaluation(s) Reevaluation #1: Reevaluation patient denying any suicidal thoughts she states she wants to go home she feels better after talking with someone (EPS nurse) 03/27/20 12:40 Medical Decision Making - Medical Decision Making 54-year-old female presenting today for chief complaint of suicidal thoughts. Retracted complaints after talking with EPS nurse. NURSE contacted on-call psychiatrist who recommended discharge the patient. Patient is agreeable to the safety plan that has been placed. She states she is ready for discharge home. Patient appears well no acute distress. Discussed case with Dr Castanon. - Lab Data Lab Results 03/27/20 03/27/20 03/27/20 Range/Units 11:06 11:15 12:05 Urine Color Light Yellow Urine Appearance Cloudy H (Clear) Urine pH 5.0 (5.0-8.0) Ur Specific Varney 1.016 (1.001-1.035) Urine Protein Negative (Negative) Urine Glucose (UA) Trace H (Negative) Urine Ketones Negative (Negative) Urine Blood Negative (Negative) Urine Nitrite Negative (Negative) Urine Bilirubin Negative (Negative) Urine Urobilinogen <2.0 (<2.0) mg/dL Ur Leukocyte Esterase Moderate H (Negative) Urine RBC 1 (0-5) /hpf Urine WBC 4 (0-5) /hpf Ur Squamous Epith Cells 7 H (0-4) /hpf Urine Bacteria Occasional H (None) /hpf Urine Mucus Rare H (None) /hpf Urine Opiates Screen Not Detected (NotDetected) Ur Oxycodone Screen Not Detected (NotDetected) Urine Methadone Screen Not Detected (NotDetected) Ur Propoxyphene Screen Not Detected (NotDetected) Ur Barbiturates Screen Not Detected (NotDetected) U Tricyclic Antidepress Detected H (NotDetected) Ur Phencyclidine Scrn Not Detected (NotDetected) Ur Amphetamines Screen Not Detected (NotDetected) U Methamphetamines Scrn Not Detected (NotDetected) U Benzodiazepines Scrn Detected H (NotDetected) [place] 0.8 mmol/L Urine Cocaine Screen Not Detected (NotDetected) U Marijuana (THC) Screen Not Detected (NotDetected) Disposition Clinical Impression: Suicidal thoughts, Depression Disposition: HOME SELF-CARE Condition: Good Instructions (If sedation given, give patient instructions): Suicide Prevention (ED) Additional Instructions: Please use medication as discussed. Please follow-up with family doctor in the next 2 days, follow-up with CM as discussed-if thoughts return please return to the ER. Please return to emergency room if the symptoms increase or worsen or for any other concerns. Is patient prescribed a controlled substance at d/c from ED?: No [facility] - 1-2 days Time of Disposition: 12:40
[2020-03-27 11:34] LABS: Appearance,Urine Cloudy (Clear); Bacteria,Urine Occasional /hpf; Bilirubin,Urine Negative (Negative); Blood,Urine Negative (Negative); Color,Urine Light Yellow; Glucose,Urine (UA) Trace (Negative); Ketones,Urine Negative (Negative); Leukocyte Esterase,Urine Moderate (Negative); Mucus,Urine Rare /hpf; Nitrite,Urine Negative (Negative); Protein,Urine Negative (Negative); RBC,Urine 1 /hpf (0-5); Specific Gravity,Urine 1.016 (1.001-1.035); Squamous Epithelial Cell,Urine 7 /hpf (0-4); Urobilinogen,Urine <2.0 mg/dL (<2.0); WBC,Urine 4 /hpf (0-5)
[2020-03-27 11:41] LABS: Amphetamine Screen,Urine Not Detected (NotDetected); Barbiturate Screen,Urine Not Detected (NotDetected); Benzodiazepines Screen,Urine Detected (NotDetected); Cocaine Screen,Urine Not Detected (NotDetected); Methadone Screen, Urine Not Detected (NotDetected); Opiate Screen,Urine Not Detected (NotDetected); Oxycodone Screen, Urine Not Detected (NotDetected); Phencyclidine Screen,Urine Not Detected (NotDetected); Tricyclic Antidepressant,Urine Detected (NotDetected); Urn Cannabinoid Scrn Not Detected (NotDetected)
[2020-03-27 12:46] VITALS: BP 128/74; PULSE 78; RESP 16; TEMP 97.8
== END 2020-03-27 12:45 | disposition home or self-care (01) ==
LOC: EC 10:48
DX: F32.9 Major depressive disorder, single episode, unspecified (principal); R45.851 Suicidal ideations; E11.9 Type 2 diabetes mellitus without complications; E78.5 Hyperlipidemia, unspecified; I10 Essential (primary) hypertension; F41.9 Anxiety disorder, unspecified; Z79.1 Long term (current) use of non-steroidal anti-inflammatories (NSAID); Z79.84 Long term (current) use of oral hypoglycemic drugs; Z79.890 Hormone replacement therapy; Z79.51 Long term (current) use of inhaled steroids; Z79.899 Other long term (current) drug therapy; Z91.018 Allergy to other foods; Z88.7 Allergy status to serum and vaccine; Z87.891 Personal history of nicotine dependence
CPT/HCPCS: 36415; 80175; 80178; 80306; 81001; 82075; 99285

== ENCOUNTER → 2020-12-01 | Outpatient (CLI) | payer MEDICARE, OTHER ==
--- NOTE | 2020-12-01 10:36 | XR ---
EXAMINATION TYPE: XR Hip Complete RT DATE OF EXAM: 12/01/2020 Comparison: 12/19/2013 Clinical History: 55-year-old female M25.551 Pain in right hip Findings: There is mild degenerative change of the right hip with marginal spurring. To be mild axial narrowing of joint space. No acute fracture, subluxation, dislocation. Phlebolith in the medial aspect of the upper thigh, unchanged from 2013. Impression: Mild degenerative change at the right hip. No acute osseous abnormality seen.
== END ==
LOC: RADXRMAIN 09:45
PROVIDERS: ATTEND Internal Medicine
DX: M16.11 Unilateral primary osteoarthritis, right hip (principal)
CPT/HCPCS: 73502

== ENCOUNTER 2024-01-01 12:14 | Inpatient (IN) | payer MEDICARE, MEDICAID ==
--- NOTE | 2024-01-01 12:35 | ED ---
General Adult HPI - General Chief complaint: Psychiatric Symptoms Stated complaint: Hypertension Time Seen by Provider: 01/01/24 12:20 Source: patient, RN notes reviewed, old records reviewed Mode of arrival: ambulatory Limitations: no limitations - History of Present Illness Initial comments: This is a 58-year-old female who presents to the emergency department in the custody of the police. Police petitioning the patient because the patient told them that she was suicidal last night and took 20 of her Vistaril and 6 of her Requip. Patient states she is also on lithium and Abilify. Patient states she is no longer feeling quite as suicidal as she was she is very depressed and wants help so that she does not hurt herself. Patient states the reason she called today is because she was fearful that she might get more depressed and attempt again. Patient denies any physical complaints today. Patient has any fever chills or cough. He denies a headache patient has numbness weakness. Patient has any chest pain palpitation difficulty breathing shortness of breath. Patient denies any abdominal pain patient has nausea vomiting diarrhea - Related Data Home Medications Medication Instructions Recorded Confirmed metFORMIN HCL [Glucophage] 1,000 mg PO BID 09/29/15 01/01/24 ARIPiprazole [Abilify] 30 mg PO HS 10/30/16 01/01/24 lamoTRIgine [LaMICtal] 100 mg PO BID 10/30/16 01/01/24 FLUoxetine HCL [PROzac] 80 mg PO DAILY 03/02/17 01/01/24 Oxybutynin Chloride 5 mg PO BID 03/16/18 01/01/24 Levothyroxine Sodium [Synthroid] 50 mcg PO DAILY 05/30/19 01/01/24 Atorvastatin [Lipitor] 20 mg PO HS 03/27/20 01/01/24 Losartan Potassium [Cozaar] 100 mg PO DAILY 03/27/20 01/01/24 Propranolol [Inderal] 40 mg PO BID 03/27/20 01/01/24 gemfibroziL [Lopid] 600 mg PO BID 03/27/20 01/01/24 hydrOXYzine pamoate [Vistaril] 25 mg PO TID PRN 03/27/20 01/01/24 Baclofen 10 mg PO HS 01/01/24 01/01/24 Dulaglutide [Trulicity] 3 mg SQ Q7D 01/01/24 01/01/24 Insulin Glargine,Hum.rec.anlog 70 units SQ DAILY 01/01/24 01/01/24 [Tori Solostar] [place] Carbonate 600 mg PO HS 01/01/24 01/01/24 Loratadine [Claritin] 10 mg PO DAILY 01/01/24 01/01/24 Nystatin 100,000Unit/gm Cream 1 applic TOPICAL TID PRN 01/01/24 01/01/24 [Mycostatin Cream] amLODIPine [Norvasc] 2.5 mg PO DAILY 01/01/24 01/01/24 rOPINIRole HCL [Requip] 1 mg PO TID 01/01/24 01/01/24 Allergies Allergy/AdvReac Type Severity Reaction Status Date / Time coconut oil Allergy Unknown Anaphylaxis Verified 01/01/24 16:17 pineapple [Pineapple] Allergy Unknown Anaphylaxis Verified 01/01/24 16:17 licorice Allergy Unknown Verified 01/01/24 16:17 Influenza Virus Vaccines AdvReac Nausea & Verified 01/01/24 16:17 Vomiting Review of Systems ROS Statement: Those systems with pertinent positive or pertinent negative responses have been documented in the HPI. ROS Other: All systems not noted in ROS Statement are negative. Past Medical History Past Medical History: Diabetes Mellitus, Fibromyalgia, Hyperlipidemia, Hypertension, Musculoskeletal Disorder, Seizure Disorder Additional Past Medical History / Comment(s): borderline personality,benign liver cyst, previous cocaine use History of Any Multi-Drug Resistant Organisms: None Reported Past Surgical History: Cholecystectomy Past Anesthesia/Blood Transfusion Reactions: No Reported Reaction Past Psychological History: Anxiety, Bipolar, Depression, Schizophrenia Smoking Status: Current every day smoker Past Alcohol Use History: None Reported Past Drug Use History: None Reported - Past Family History Father History Unknown: Yes Family Medical History: Myocardial Infarction (PA) Additional Family Medical History / Comment(s): passed of PA at 71 Mother History Unknown: Yes Family Medical History: Diabetes Mellitus Sister(s) History Unknown: Yes Family Medical History: COPD, Myocardial Infarction (PA) Additional Family Medical History / Comment(s): fatal PA at 50 General Exam - General Exam Comments Initial Comments: GENERAL: Patient is well-developed and well-nourished. Patient is nontoxic and well- hydrated and is in no acute distress. ENT: Neck is soft and supple. No significant lymphadenopathy is noted. Oropharynx is clear. Moist mucous membranes. Neck has full range of motion without eliciting any pain. EYES: The sclera were anicteric and conjunctiva were pink and moist. Extraocular movements were intact and pupils were equal round and reactive to light. Eyelids were unremarkable. PULMONARY: Unlabored respirations. Good breath sounds bilaterally. No audible rales rhonc hi or wheezing was noted. CARDIOVASCULAR: There is a regular rate and rhythm without any murmurs gallops or rubs. ABDOMEN: Soft and nontender with normal bowel sounds. SKIN: Skin is clear with no lesions or rashes and otherwise unremarkable. NEUROLOGIC: Patient is alert and oriented x3. Cranial nerves II through XII are grossly intact. Motor and sensory are also intact. Normal speech, volume and content. Symmetrical smile. MUSCULOSKELETAL: Normal extremities with adequate strength and full range of motion. No lower extremity swelling or edema. No calf tenderness. LYMPHATICS: No significant lymphadenopathy is noted PSYCHIATRIC: Patient states she is depressed and attempted suicide last night Limitations: no limitations Course Vital Signs 01/01/24 12:16 Temperature 98.1 F Pulse Rate 84 Respiratory 18 Rate Blood Pressure 124/80 O2 Sat by Pulse 95 Oximetry Medical Decision Making - Medical Decision Making EKG is interpreted by myself. EKG shows a sinus rhythm at 83 bpm parable 194 QRS 95 QT interval 388 QTc is 428. Patient's EKG shows no ST segment ovation or depression. Was pt. sent in by a medical professional or institution (, PA, VICE CHAIR, urgent care, hospital, or half-way...) When possible be specific @ -No Did you speak to anyone other than the patient for history (EMS, parent, family, police, friend...)? What history was obtained from this source @ -No Did you review nursing and triage notes (agree or disagree)? Why? @ -I reviewed and agree with nursing and triage notes Were old charts reviewed (outside hosp., previous admission, EMS record, old EKG, old radiological studies, urgent care reports/EKG's, half-way records)? Report findings @ -No old charts were reviewed Differential Diagnosis (chest pain, altered mental status, abdominal pain women, abdominal pain men, vaginal bleeding, weakness, fever, dyspnea, syncope, headache, dizziness, GI bleed, back pain, seizure, CVA, palpatations, mental health, musculoskeletal)? @ -Differential Mental Health Depression, anxiety, bipolar, psychosis, schizophrenia, borderline personality, situational depression, adjustment disorder, behavioral disorder, brain tumor, malingering, substance abuse, encephalopathy, medication reaction, dementia, hypothyroidism, degenerative neurologic disorder, lupus.... This is not meant to be all-inclusive list EKG interpreted by me (3pts min.). @ -As above X-rays interpreted by me (1pt min.). @ -None done CT interpreted by me (1pt min.). @ -None done U/S interpreted by me (1pt. min.). @ -None done What testing was considered but not performed or refused? (CT, X-rays, U/S, labs)? Why? @ -None What meds were considered but not given or refused? Why? @ -None Did you discuss the management of the patient with other professionals (professionals i.e. , PA, VICE CHAIR, lab, RT, psych nurse, social media analyst, sales recruitment specialist, teacher, credit compliance officer, window caser)? Give summary @ -I spoke with EPS they spoke with the psychiatrist and agreed that the patient needed to be admitted. Was smoking cessation discussed for >3mins.? @ -No Was critical care preformed (if so, how long)? @ -No Were there social determinants of health that impacted care today? How? (Homelessness, low income, unemployed, alcoholism, drug addiction, transportation, low edu. Level, literacy, decrease access to med. care, [facility], rehab)? @ -No Was there de-escalation of care discussed even if they declined (Discuss DNR or withdrawal of care, Hospice)? DNR status @ -No What co-morbidities impacted this encounter? (DM, HTN, Smoking, COPD, CAD, Cancer, CVA, ARF, Chemo, Hep., AIDS, mental health diagnosis, sleep apnea, morbid obesity)? @ -None Was patient admitted / discharged? Hospital course, mention meds given and route, prescriptions, significant lab abnormalities, going to OR and other pertinent info. @ -Patient was in agreement with the admission and did agree that she needed some help so she wanted to be admitted. Patient will be admitted to psych and she did sign in on her own. Undiagnosed new problem with uncertain prognosis? @ -No Drug Therapy requiring intensive monitoring for toxicity (Heparin, Nitro, Insulin, Cardizem)? @ -No Were any procedures done? @ -No Diagnosis/symptom? @ -Depression Acute, or Chronic, or Acute on Chronic? @ -Acute Uncomplicated (without systemic symptoms) or Complicated (systemic symptoms)? @ -Complicated Side effects of treatment? @ -No Exacerbation, Progression, or Severe Exacerbation? @ -No Poses a threat to life or bodily function? How? (Chest pain, USA, PA, pneumonia, PE, COPD, DKA, ARF, appy, cholecystitis, CVA, Diverticulitis, Homicidal, Suicidal, threat to staff... and all critical care pts) @ -Yes if patient was to go home she would potentially take her life Diagnosis/symptom? @ -Suicide attempt Acute, or Chronic, or Acute on Chronic? @ -Acute Uncomplicated (without systemic symptoms) or Complicated (systemic symptoms)? @ -Complicated Side effects of treatment? @ -None Exacerbation, Progression, or Severe Exacerbation] @ -No Poses a threat to life or bodily function? @ -No - Lab Data Result diagrams: 01/01/24 12:36 01/01/24 12:36 Lab Results 01/01/24 01/01/24 01/01/24 Range/Units 12:36 12:36 12:42 WBC 9.5 (3.8-10.6) k/uL RBC 4.32 (3.80-5.40) m/uL Hgb 13.0 (11.4-16.0) gm/dL Hct 39.2 (34.0-46.0) % MCV 90.7 (80.0-100.0) fL MCH 30.0 (25.0-35.0) pg MCHC 33.1 (31.0-37.0) g/dL RDW 13.2 (11.5-15.5) % Plt Count 342 (150-450) k/uL MPV 7.2 Neutrophils % 68 % Lymphocytes % 20 % Monocytes % 4 % Eosinophils % 6 % Basophils % 1 % Neutrophils # 6.4 (1.3-7.7) k/uL Lymphocytes # 1.9 (1.0-4.8) k/uL Monocytes # 0.4 (0-1.0) k/uL Eosinophils # 0.5 (0-0.7) k/uL Basophils # 0.1 (0-0.2) k/uL Sodium 138 (137-145) mmol/L Potassium 4.7 (3.5-5.1) mmol/L Chloride 104 (98-107) mmol/L Carbon Dioxide 23 (22-30) mmol/L Anion Gap 11 mmol/L BUN 19 H (7-17) mg/dL Creatinine 0.62 (0.52-1.04) mg/dL Est GFR (CKD-EPI)AfAm >90 (>60 ml/min/1.73 sqM) Est GFR (CKD-EPI)NonAf >90 (>60 ml/min/1.73 sqM) Glucose 195 H (74-99) mg/dL Calcium 10.5 H (8.4-10.2) mg/dL Total Bilirubin 0.6 (0.2-1.3) mg/dL AST 41 H (14-36) U/L ALT 33 (4-34) U/L Alkaline Phosphatase 104 (38-126) U/L Total Protein 7.7 (6.3-8.2) g/dL Albumin 4.8 (3.5-5.0) g/dL Urine Opiates Screen Not Detected (NotDetected) Ur Oxycodone Screen Not Detected (NotDetected) Urine Methadone Screen Not Detected (NotDetected) Ur Barbiturates Screen Not Detected (NotDetected) U Tricyclic Antidepress Not Detected (NotDetected) Ur Phencyclidine Scrn Not Detected (NotDetected) Ur Amphetamines Screen Not Detected (NotDetected) U Methamphetamines Scrn Not Detected (NotDetected) U Benzodiazepines Scrn Not Detected (NotDetected) [place] 0.8 mmol/L Urine Cocaine Screen Not Detected (NotDetected) U Marijuana (THC) Screen Not Detected (NotDetected) Disposition Clinical Impression: Depression, Attempted suicide Disposition: ADMITTED IP TO THIS [facility]errals[facility] [Primary Care Provider] - 1-2 days Time of Disposition: 16:34
[2024-01-01] MEDS: SODIUM CHLORIDE 0.9% 1,000 ML IV ONE (12:43)
[2024-01-01 12:49] LABS: Basophils # (A) 0.1 k/uL (0-0.2); Basophils % (A) 1 %; Eosinophils # (A) 0.5 k/uL (0-0.7); Eosinophils % (A) 6 %; HCT 39.2 % (34.0-46.0); Lymphocytes # (A) 1.9 k/uL (1.0-4.8); Lymphocytes % (A) 20 %; MCHC 33.1 g/dL (31.0-37.0); MCV 90.7 fL (80.0-100.0); Mean Platelet Volume 7.2; Monocytes # (A) 0.4 k/uL (0-1.0); Monocytes % (A) 4 %; Neutrophils # (A) 6.4 k/uL (1.3-7.7); Neutrophils % (A) 68 %; Platelet Count 342 k/uL (150-450); RBC 4.32 m/uL (3.80-5.40); RDW 13.2 % (11.5-15.5); WBC 9.5 k/uL (3.8-10.6)
[2024-01-01 13:12] LABS: ALT 33 U/L (4-34); AST 41 U/L (14-36); African American GFR (CKD) >90 (>60 ml/min/1.73 sqM); Albumin 4.8 g/dL (3.5-5.0); Alkaline Phosphatase 104 U/L (38-126); Anion Gap 11 mmol/L; Blood Urea Nitrogen 19 mg/dL (7-17); Calcium 10.5 mg/dL (8.4-10.2); Carbon Dioxide 23 mmol/L (22-30); Chloride 104 mmol/L (98-107); Glucose 195 mg/dL (74-99); Lithium 0.8 mmol/L; Non-African American GFR(CKD) >90 (>60 ml/min/1.73 sqM); Potassium 4.7 mmol/L (3.5-5.1); Sodium 138 mmol/L (137-145); Total Bilirubin 0.6 mg/dL (0.2-1.3); Total Protein 7.7 g/dL (6.3-8.2)
[2024-01-01 13:15] LABS: Amphetamine Screen,Urine Not Detected (NotDetected); Barbiturate Screen,Urine Not Detected (NotDetected); Benzodiazepines Screen,Urine Not Detected (NotDetected); Cocaine Screen,Urine Not Detected (NotDetected); Methadone Screen, Urine Not Detected (NotDetected); Opiate Screen,Urine Not Detected (NotDetected); Oxycodone Screen, Urine Not Detected (NotDetected); Phencyclidine Screen,Urine Not Detected (NotDetected); Tricyclic Antidepressant,Urine Not Detected (NotDetected); Urn Cannabinoid Scrn Not Detected (NotDetected)
[2024-01-01] MEDS ORDERED: NYSTATIN 100,000UNIT/GM CREAM 30 GM TUBE TOPICAL PRN (19:29)
[2024-01-01] MEDS ORDERED: hydrOXYzine pamoate 25 MG CAP PO PRN (19:29)
[2024-01-01] MEDS ORDERED: MAG HYDROX/AL HYDROX/SIMETH 355 ML BOTTLE PO PRN (19:31)
[2024-01-01] MEDS ORDERED: LORazepam 2 MG/ML INJ IM PRN (19:31)
[2024-01-01] MEDS: BACLOFEN 10 MG TAB PO SCH (21:01)
[2024-01-01] MEDS: ATORVASTATIN 20 MG TAB PO SCH (21:01)
[2024-01-01] MEDS: LITHIUM CARBONATE 300 MG CAP PO SCH (21:01)
[2024-01-01] MEDS: ARIPiprazole 15 MG TAB PO SCH (21:01)
[2024-01-01] MEDS: oxyBUTYnin chloride 5 MG TAB PO SCH (21:02)
[2024-01-01] MEDS: lamoTRIgine 100 MG TAB PO SCH (21:02)
[2024-01-01] MEDS: PROPRANOLOL 40 MG TAB PO SCH (21:02)
[2024-01-01] MEDS: metFORMIN 500 MG TAB PO SCH (21:04)
[2024-01-01] MEDS: LORazepam 1 MG TAB PO PRN (23:43)
[2024-01-02 07:50] LABS: Glucose,Whole Blood 122 mg/dL (70-110)
[2024-01-02] MEDS: INSULIN DETEMIR (LEVEMIR) 100 UNIT/ML SYR SQ SCH (08:15)
[2024-01-02] MEDS: FLUoxetine HCL 20 MG CAP PO SCH (08:16)
[2024-01-02] MEDS: FENOFIBRATE 160 MG TAB PO SCH (08:16)
[2024-01-02] MEDS: amLODIPine 2.5 MG TAB PO SCH (08:16)
[2024-01-02] MEDS: LOSARTAN 50 MG TAB PO SCH (08:17)
[2024-01-02] MEDS: LORATADINE 10 MG TAB PO SCH (08:17)
[2024-01-02] MEDS: LEVOTHYROXINE 50 MCG TAB PO SCH (08:17)
[2024-01-02] MEDS: NICOTINE 14MG/24HR PATCH TRANSDERM SCH (08:20)
[2024-01-02 09:45] LABS: Chol/HDL Ratio 3.84 Ratio; LDL Cholesterol,Calculated 63.5 mg/dL (0.0-131.0)
[2024-01-02] MEDS: MAGNESIUM HYDROXIDE 2,400 MG/30 ML CUP PO PRN (11:08)
[2024-01-02 12:33] LABS: Glucose,Whole Blood 125 mg/dL (70-110)
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
[2024-01-02 17:40] LABS: Glucose,Whole Blood 111 mg/dL (70-110)
[2024-01-02 19:48] LABS: Glucose,Whole Blood 132 mg/dL (70-110)
[2024-01-02] MEDS: MIRTAZAPINE 15 MG TAB PO SCH (21:51)
[2024-01-03 07:34] LABS: Glucose,Whole Blood 98 mg/dL (70-110)
[2024-01-03] MEDS: DULoxetine HCL 30 MG CAPSULE.DR PO SCH (08:32)
[2024-01-03 11:06] LABS: Glucose,Whole Blood 145 mg/dL (70-110)
--- NOTE | 2024-01-03 12:01 | P.PN ---
Progress Note - Text Progress Note Date: 01/03/24 Interval History: Patient was seen wandering the hallways and was directable and agreeable to sp radhak with internal communications writer in the office. Patient states she feels a little nauseous and sleepy this morning. patient was offered zofran however did not want it. Patient claims that she did not sleep well last night. Arson Investigator went over different options for medications to help with this, patient agreeable to try doxepin. Patient is going to groups, and her appetite is fair. Patient offered no other complaints. At this time patient denies any suicidal or homicidal ideations, intent or plan. Patient denies any auditory, visual hallucinations and denies any paranoia or delusions. Patient denies any side effects from the medications and has been compliant with meds. MENTAL STATUS EXAM: General Appearance: Patient appears to be older than stated age, is alert, directable, and attempts to cooperate. Patient appears to have fair hygiene and grooming. Disheveled. Dressed in hospital gown. Behavior: Patient is seated without any agitated behavior. Speech: Patient's speech is fluent and nonpressured. Mood/Affect: Patient reports their mood is tired, affect is congruent and constricted. Suicidality/Homicidality: Patient denies having any homicidal ideation intent or plan. Denies any suicidal ideations intent or plan Perceptions: Patient denies any visual hallucinations and denies any auditory hallucinations Though content/process: There is no evidence of any delusional thought content and thought process is linear and goal-directed. concrete. Memory and concentration: AOX3, grossly intact for the purposes of this session. Judgment and insight: poor/impulsive, improiving mildly IMPRESSIONS: suicide attempt by overdose of psychotropic medication bipolar disorder, current episode, depressed Tardive Dyskinesia PLAN: -Patient is admitted under voluntary status to MHU for stabilization of psychiatric symptoms and safety. Patient has signed adult voluntary form and medication consent and is placed in patient's chart. -Medications : Cymbalta 30mg daily for mood/anxiety, d/c Remeron due to ineffectiveness and possibly RLS, add Doxepin 10mg qhs for for mood/sleep. Visteral 25mg TID prn for anxiety, Abilify 30mg qhs for mood stabilization, Lamictal 100mg BID for mood stabilization/depression, Blende 600mg qhs for mood stabilization. For patient's tardive dyskinesia symptoms, she will be able to follow-up at [facility] with this medication for further monitoring and also that this medication is not available on hospital formulary. -Ativan and Haldol PRN for agitation/aggression -NRT - nicotine patch -SW on board for discharge planning. Encourage patient to participate in groups to work on coping skills.
[2024-01-03 12:37] LABS: Glucose,Whole Blood 196 mg/dL (70-110)
[2024-01-03 17:36] LABS: Glucose,Whole Blood 132 mg/dL (70-110)
[2024-01-03] MEDS: DOXEPIN 10 MG CAP PO SCH (21:11)
--- NOTE | 2024-01-04 00:20 | P.MDCNMH ---
History of Present Illness H&P Date: 01/04/24 Chief Complaint: Medical evaluation 58-year-old female with diabetes mellitus and fibromyalgia, hypertension Patient coming in in custody of police for mental health evaluation due to suicidal ideation. Patient took extra pills from her medication and at times to hurt herself. At time of my evaluation she denies any headache fevers chills nausea vomiting shortness of breath coughing belly pain changes in bowel or urinary habits she denies any suicidal ideation at this time review of systems Pertinent positives as noted in HPI. All other systems were reviewed and are negative on exam Constitutional: No acute distress, Eyes: Anicteric sclerae, moist conjunctiva, Pupils equal round reactive to light Lungs: Clear to auscultation Clear to percussion Normal respiratory effort, no accessory muscle use Cardiovascular: Heart regular in rate and rhythm, No murmurs, gallops, or rubs No peripheral edema Abdominal: Soft Nontender, no guarding, rebound or rigidity Abdomen moving with respiration Normoactive bowel sounds Extremities: No digital cyanosis No clubbing Pedal pulses intact and symmetrical Radial pulses intact and symmetrical No calf tenderness Psychiatric: Alert and oriented to person, place and time Neuro Muscles Strength 5/5 in all 4 extremities Sensation to light touch grossly present throughout Cranial nerves II-XII grossly intact Past Medical History Past Medical History: Diabetes Mellitus, Fibromyalgia, Hyperlipidemia, Hypertension, Musculoskeletal Disorder, Seizure Disorder, Thyroid Disorder Additional Past Medical History / Comment(s): borderline personality,benign liver cyst, previous cocaine use History of Any Multi-Drug Resistant Organisms: None Reported Past Surgical History: Cholecystectomy Past Anesthesia/Blood Transfusion Reactions: No Reported Reaction Past Psychological History: Anxiety, Bipolar, Depression, Schizophrenia Additional Psychological History / Comment(s): Borderline personality disorder Smoking Status: Former smoker Past Alcohol Use History: None Reported Past Drug Use History: None Reported Additional Drug Use History / Comment(s): pt said she has not used in 9 years. used crack cocaine for 3 years - Past Family History Father History Unknown: Yes Family Medical History: Myocardial Infarction (RI) Additional Family Medical History / Comment(s): passed of RI at 71 Mother History Unknown: Yes Family Medical History: Diabetes Mellitus Sister(s) History Unknown: Yes Family Medical History: COPD, Myocardial Infarction (RI) Additional Family Medical History / Comment(s): fatal RI at 50 Medications and Allergies Home Medications Medication Instructions Recorded Confirmed Type metFORMIN HCL [Glucophage] 1,000 mg PO BID 09/29/15 01/01/24 History ARIPiprazole [Abilify] 30 mg PO HS 10/30/16 01/01/24 History lamoTRIgine [LaMICtal] 100 mg PO BID 10/30/16 01/01/24 History FLUoxetine HCL [PROzac] 80 mg PO DAILY 03/02/17 01/01/24 History Oxybutynin Chloride 5 mg PO BID 03/16/18 01/01/24 History Levothyroxine Sodium [Synthroid] 50 mcg PO DAILY 05/30/19 01/01/24 History Atorvastatin [Lipitor] 20 mg PO HS 03/27/20 01/01/24 History Losartan Potassium [Cozaar] 100 mg PO DAILY 03/27/20 01/01/24 History Propranolol [Inderal] 40 mg PO BID 03/27/20 01/01/24 History gemfibroziL [Lopid] 600 mg PO BID 03/27/20 01/01/24 History hydrOXYzine pamoate [Vistaril] 25 mg PO TID PRN 03/27/20 01/01/24 History Baclofen 10 mg PO HS 01/01/24 01/01/24 History Dulaglutide [Trulicity] 3 mg SQ Q7D 01/01/24 01/01/24 History Insulin Glargine,Hum.rec.anlog 70 units SQ DAILY 01/01/24 01/01/24 History [Toujeo Solostar] [place] Carbonate 600 mg PO HS 01/01/24 01/01/24 History Loratadine [Claritin] 10 mg PO DAILY 01/01/24 01/01/24 History Nystatin 100,000Unit/gm Cream 1 applic TOPICAL TID PRN 01/01/24 01/01/24 History [Mycostatin Cream] amLODIPine [Norvasc] 2.5 mg PO DAILY 01/01/24 01/01/24 History rOPINIRole HCL [Requip] 1 mg PO TID 01/01/24 01/01/24 History Allergies Allergy/AdvReac Type Severity Reaction Status Date / Time coconut oil Allergy Unknown Anaphylaxis Verified 01/01/24 16:17 pineapple [Pineapple] Allergy Unknown Anaphylaxis Verified 01/01/24 16:17 licorice Allergy Unknown Verified 01/01/24 16:17 Influenza Virus Vaccines AdvReac Nausea & Verified 01/01/24 16:17 Vomiting Physical Exam Vitals: Vital Signs Temp Pulse Pulse Resp BP BP Pulse Ox 01/03/24 21:14 98.1 F 94 16 111/62 98 01/03/24 06:52 97.1 F L 84 16 131/79 95 01/03/24 01:17 97.2 F L 89 14 101/61 Cranial Nerve Examination - Cranial Nerves Cranial Nerve II- Optic: Intact Cranial Nerve III- Oculomotor: Intact Cranial Nerve IV- Trochlear: Intact Cranial Nerve V- Trigeminal: Intact Cranial Nerve - Abducens: Intact Cranial Nerve VII- Facial: Intact Cranial Nerve VIII- Auditory: Intact Cranial Nerve IX- Glossopharyngeal: Intact Cranial Nerve X- Vagus: Intact Cranial Nerve XI- Accessory: Intact Cranial Nerve XII- Hypoglossal: Intact Results CBC & Chem 7: 01/01/24 12:36 01/01/24 12:36 Labs: Abnormal Lab Results - Last 24 Hours (Table) 01/03/24 01/03/24 01/03/24 Range/Units 11:05 12:35 17:25 POC Glucose (mg/dL) 145 H 196 H 132 H (70-110) mg/dL Assessment and Plan Assessment: Depression suicidal ideation management per psych Hypertension blood pressure controlled Continue with propranolol, losartan, amlodipine Hyperlipidemia continue with atorvastatin Diabetes mellitus continue with insulin sliding scale, Levemir and metformin Hypothyroidism continue with levothyroxine Overall stable from medical standpoint Labs reviewed unremarkable Thank you for this consultation
[2024-01-04 07:37] LABS: Glucose,Whole Blood 146 mg/dL (70-110)
--- NOTE | 2024-01-04 09:35 | P.PN ---
Progress Note - Text Progress Note Date: 01/04/24 Interval History: Patient was seen wandering the hallways and was directable and agreeable to heri stewart with caption writer in the office. Patient states that she is alright today. Patient states she slept very well last night and wants to remain on the doxepin at this time. States she is mildly anxious. Claims that her mood is mildly improving. Patient complains of her restless legs. Patient is going to groups, and her appetite is good. Patient offered no other complaints. At this time patient denies any suicidal or homicidal ideations, intent or plan. Patient denies any auditory, visual hallucinations and denies any paranoia or delusions. Patient denies any side effects from the medications and has been compliant with meds. MENTAL STATUS EXAM: General Appearance: Patient appears to be older than stated age, is alert, directable, and attempts to cooperate. Patient appears to have fair hygiene and grooming. Disheveled. Dressed in hospital gown. Behavior: Patient is seated without any agitated behavior. Speech: Patient's speech is fluent and nonpressured. Mood/Affect: Patient reports their mood is mildly improving, affect is congruent and constricted. mildly improving Suicidality/Homicidality: Patient denies having any homicidal ideation intent or plan. Denies any suicidal ideations intent or plan Perceptions: Patient denies any visual hallucinations and denies any auditory hallucinations Though content/process: There is no evidence of any delusional thought content and thought process is linear and goal-directed. concrete. Memory and concentration: AOX3, grossly intact for the purposes of this session. Judgment and insight: poor, improving mildly IMPRESSIONS: suicide attempt by overdose of psychotropic medication bipolar disorder, current episode, depressed Tardive Dyskinesia PLAN: -Patient is admitted under voluntary status to MHU for stabilization of psychiatric symptoms and safety. Patient has signed adult voluntary form and medication consent and is placed in patient's chart. -Medications : change Cymbalta 60mg qhs for mood/anxiety, Doxepin 10mg qhs for f or mood/sleep. Visteral 25mg TID prn for anxiety, Abilify 30mg qhs for mood stabilization, Lamictal 100mg BID for mood stabilization/depression, [place] 600mg qhs for mood stabilization. For patient's tardive dyskinesia symptoms, she will be able to follow-up at [facility] with this medication for further monitoring and also that this medication is not available on hospital formulary. -Ativan and Haldol PRN for agitation/aggression -NRT - nicotine patch -SW on board for discharge planning. Encourage patient to participate in groups to work on coping skills. Likely discharge tomorrow versus Monday back home if patient is psychiatrically improving.
[2024-01-04 12:34] LABS: Glucose,Whole Blood 127 mg/dL (70-110)
[2024-01-04 17:39] LABS: Glucose,Whole Blood 153 mg/dL (70-110)
[2024-01-04 19:57] LABS: Glucose,Whole Blood 167 mg/dL (70-110)
[2024-01-04] MEDS: DULoxetine HCL 60 MG CAPSULE.DR PO SCH (21:39)
[2024-01-04] MEDS: ACETAMINOPHEN TAB 325 MG TAB PO PRN (23:51)
[2024-01-05 08:08] LABS: Glucose,Whole Blood 168 mg/dL (70-110)
--- NOTE | 2024-01-05 11:13 | P.PN ---
Progress Note - Text Progress Note Date: 01/05/24 Interval History: Patient was seen wandering the hallways and was directable and agreeable to sp terry with process description writer in the office. Patient states that she is alright today, and trying to stay awake. Patient states she did not sleep very well last night, because she was sleeping all day yesterday. Patient continues to complain of her restless legs. Patient is going to groups, and her appetite is fair. Patient offered no other complaints. Patient is endorsing suicidal thoughts, however, claims that she feels safe here, so she has no intent or plan. No homicidal ideations, intent or plan. Patient denies any auditory, visual hallucinations and denies any paranoia or delusions. Patient denies any side effects from the medications and has been compliant with meds. MENTAL STATUS EXAM: General Appearance: Patient appears to be older than stated age, is alert, directable, and attempts to cooperate. Patient appears to have fair hygiene and grooming. Disheveled. Dressed in hospital gown. Behavior: Patient is seated without any agitated behavior. Speech: Patient's speech is fluent and nonpressured. Mood/Affect: Patient reports their mood is alright, affect is congruent and constricted. mildly improving Suicidality/Homicidality: Patient denies having any homicidal ideation intent or plan. Denies any suicidal ideations intent or plan Perceptions: Patient denies any visual hallucinations and denies any auditory hallucinations Though content/process: There is no evidence of any delusional thought content and thought process is linear and goal-directed. concrete. Memory and concentration: AOX3, grossly intact for the purposes of this session. Judgment and insight: poor, improving mildly IMPRESSIONS: suicide attempt by overdose of psychotropic medication bipolar disorder, current episode, depressed Tardive Dyskinesia PLAN: -Patient is admitted under voluntary status to MHU for stabilization of psychiatric symptoms and safety. Patient has signed adult voluntary form and medication consent and is placed in patient's chart. -Medications : Increase Cymbalta 90mg qhs for mood/anxiety, Doxepin 10mg qhs for for mood/sleep. Visteral 25mg TID prn for anxiety, Abilify 30mg qhs for mood stabilization, Lamictal 100mg BID for mood stabilization/depression, [place] 600mg qhs for mood stabilization. For patient's tardive dyskinesia symptoms, she will be able to follow-up at [facility] with this medication for further monitoring and also that this medication is not available on hospital formulary -Ativan and Haldol PRN for agitation/aggression -NRT - nicotine patch -SW on board for discharge planning. Encourage patient to participate in groups to work on coping skills. Likely discharge early next week, back home if patient is psychiatrically improving.
[2024-01-05 12:44] LABS: Glucose,Whole Blood 146 mg/dL (70-110)
[2024-01-05 17:51] LABS: Glucose,Whole Blood 157 mg/dL (70-110)
[2024-01-05 19:36] LABS: Glucose,Whole Blood 183 mg/dL (70-110)
[2024-01-05] MEDS: DULoxetine HCL 30 MG CAPSULE.DR PO SCH (21:06)
[2024-01-06 08:01] LABS: Glucose,Whole Blood 168 mg/dL (70-110)
--- NOTE | 2024-01-06 10:57 | P.PN ---
Subjective Progress Note Date: 01/06/24 Principal diagnosis: IMPRESSIONS: suicide attempt by overdose of psychotropic medication bipolar disorder, current episode, depressed Tardive Dyskinesia Interval History: Patient was s laying in bed and looks a little sleepy but was directable and agreeable to speak with fiction and nonfiction prose writer in the office. Patient states that she is alright today, and trying to stay awake. Patient continues to complain of her restless legs. Patient appetite is fair. Patient offered no other complaints. Patient is endorsing suicidal thoughts, however, claims that she feels safe here, so she has no intent or plan. No homicidal ideations, intent or plan. Patient denies any auditory, visual hallucinations and denies any paranoia or delusions. Patient denies any side effects from the medications and has been compliant with meds. MENTAL STATUS EXAM: Eye contact is down location: Sleep in the middle of the interview General Appearance: Patient appears to be older than stated age, is alert, directable, and attempts to cooperate. Patient appears to have fair hygiene and grooming. Disheveled. Dressed in hospital gown. Behavior: Patient is seated without any agitated behavior. Speech: Patient's speech is soft slow and nonpressured. Mood/Affect: Patient reports their mood is alright, affect is congruent and constricted. mildly improving Suicidality/Homicidality: Patient denies having any homicidal ideation intent or plan. Denies any suicidal ideations intent or plan Perceptions: Patient denies any visual hallucinations and denies any auditory hallucinations Though content/process: There is no evidence of any delusional thought content and thought process is linear and goal-directed. concrete. Memory and concentration: AOX3, grossly intact for the purposes of this session. Judgment and insight: poor, improving mildly Assessment: Patient is tolerating the medicines adequately she says she was taking her medicines before she came in but got depressed any how. We have increased the Cymbalta and added lithium and stop the Depakote which she thought made her do worse hopefully she will respond to these other 2 by getting less depressed. PLAN: -Patient is admitted under voluntary status to MHU for stabilization of psychiatric symptoms and safety. Patient has signed adult voluntary form and medication consent and is placed in patient's chart. -Medications : Increase Cymbalta 90mg qhs for mood/anxiety, Doxepin 10mg qhs for for mood/sleep. Visteral 25mg TID prn for anxiety, Abilify 30mg qhs for mood stabilization, Lamictal 100mg BID which she says is for seizures she did not realize it also helps with notes, [place] 600mg qhs for mood stabilization. For patient's tardive dyskinesia symptoms, she will be able to follow-up at [facility] with this medication for further monitoring and also that this medication is not available on hospital formulary -Ativan and Haldol PRN for agitation/aggression -NRT - nicotine patch -SW on board for discharge planning. Encourage patient to participate in groups to work on coping skills. Likely discharge early next week, back home if patient is psychiatrically improving. Objective - Vital Signs Vital signs: Vital Signs Temp 97.6 F 01/06/24 06:22 Pulse 92 01/06/24 08:09 Resp 16 01/06/24 06:22 BP 116/67 01/06/24 08:09 Pulse Ox 94 L 01/05/24 06:53 FiO2 - Labs CBC & Chem 7: 01/01/24 12:36 01/01/24 12:36 Labs: Abnormal Lab Results - Last 24 Hours (Table) 01/05/24 01/05/24 01/05/24 Range/Units 12:42 17:49 19:33 POC Glucose (mg/dL) 146 H 157 H 183 H (70-110) mg/dL 01/06/24 Range/Units 07:59 POC Glucose (mg/dL) 168 H (70-110) mg/dL
[2024-01-06 12:38] LABS: Glucose,Whole Blood 112 mg/dL (70-110)
[2024-01-06 17:34] LABS: Glucose,Whole Blood 111 mg/dL (70-110)
[2024-01-06] MEDS: LOPERAMIDE 2 MG CAP PO PRN (17:37)
[2024-01-06 20:00] LABS: Glucose,Whole Blood 112 mg/dL (70-110)
[2024-01-06 20:56] VITALS: RESP 18
[2024-01-06] MEDS: IBUPROFEN 600 MG TAB PO PRN (23:18)
[2024-01-07 07:45] LABS: Glucose,Whole Blood 136 mg/dL (70-110)
--- NOTE | 2024-01-07 08:39 | P.PN ---
Subjective Progress Note Date: 01/07/24 Principal diagnosis: IMPRESSIONS: suicide attempt by overdose of psychotropic medication bipolar disorder, current episode, depressed Tardive Dyskinesia Interval History: Patient came readily to speak with screen writer in the office she was complaining of dizziness and walks very slowly and carefully she said she had been drinking fluids and eating well. She is on several medicines that can contribute to dizziness however usually she is stuck with that that symptom uncle way if not we may have to back off on some. Right now she says she is doing well in terms of her moods and wanted to just see she could adjust to the side effect. Patient states that she is alright today, and trying to stay awake. Patient says her restless leg is somewhat better today. Patient appetite is fair. Patient offered no other complaints. Patient is endorsing suicidal thoughts, she says she is not suicidal and she certainly has no intent or plan in fact she is focused on, "when do I go home". No homicidal ideations, intent or plan. Patient denies any auditory, visual hallucinations and denies any paranoia or delusions. She has been compliant with meds. MENTAL STATUS EXAM: Eye contact is down response times are slow General Appearance: Patient appears to be older than stated age, is alert, directable, and attempts to cooperate. Patient appears to have fair hygiene and grooming. Disheveled. Dressed in hospital gown. Behavior: Patient is seated without any agitated behavior. Speech: Patient's speech is soft slow and nonpressured. Mood/Affect: Patient reports their mood is alright, affect is congruent and constricted. Perceptions: Patient denies any visual hallucinations and denies any auditory hallucinations Though content/process: There is no evidence of any delusional thought content and thought process is linear and goal-directed. concrete and not very productive. when I asked her what her plan to do well after discharge was, she said that she had friends and family around where she lived and they were a good support and she went to the [facility] but was a little vague on details. Memory and concentration: AOX3, grossly intact for the purposes of this session. Judgment and insight: poor, improving mildly Assessment: Patient is having a little problem with dizziness and her blood pressure is low side. She says she was taking her medicines before she came in but got depressed anyhow. We have increased the Cymbalta and added lithium and stopped the Depakote which she thought made her do worse hopefully she will respond to these other 2 medications by getting less depressed. We may have to cut out the doxepin or Vistaril or one of the other medicines because I think that the dizziness is cumulative side effect of all the above. PLAN: For now she wants to leave the medicine alone just be careful with her dizziness but the blood pressure remains low he when she been taking fluids we'll pry have to change symptoms -Patient is admitted under voluntary status to MHU for stabilization of psychiatric symptoms and safety. Patient has signed adult voluntary form and medication consent and is placed in patient's chart. -Medications : Increase Cymbalta 90mg qhs for mood/anxiety, Doxepin 10mg qhs for for mood/sleep. Visteral 25mg TID prn for anxiety, Abilify 30mg qhs for mood stabilization, Lamictal 100mg BID which she says is for seizures she did not realize it also helps with notes, [place] 600mg qhs for mood stabilization. For patient's tardive dyskinesia symptoms, she will be able to follow-up at [facility] with this medication for further monitoring and also that this medication is not available on hospital formulary -Ativan and Haldol PRN for agitation/aggression -NRT - nicotine patch - on board for discharge planning. Encourage patient to participate in groups to work on coping skills. Likely discharge early next week, back home if patient is psychiatrically improving. Objective - Vital Signs Vital signs: Vital Signs Temp 97.6 F 01/06/24 06:22 Pulse 83 01/07/24 06:47 Resp 18 01/06/24 20:21 BP 91/55 01/07/24 06:47 Pulse Ox 94 L 01/05/24 06:53 FiO2 - Labs CBC & Chem 7: 01/01/24 12:36 01/01/24 12:36 Labs: Abnormal Lab Results - Last 24 Hours (Table) 01/06/24 01/06/24 01/06/24 Range/Units 12:36 15:05 17:33 POC Glucose (mg/dL) 112 H 111 H (70-110) mg/dL Hemoglobin A1c 6.2 H (<=6.0) % 01/06/24 01/07/24 Range/Units 19:58 07:43 POC Glucose (mg/dL) 112 H 136 H (70-110) mg/dL Hemoglobin A1c (<=6.0) %
[2024-01-07 12:55] LABS: Glucose,Whole Blood 80 mg/dL (70-110)
[2024-01-07 19:35] LABS: Glucose,Whole Blood 83 mg/dL (70-110)
[2024-01-07 19:35] LABS: Glucose,Whole Blood 108 mg/dL (70-110)
[2024-01-08 06:11] VITALS: TEMP 97
[2024-01-08 08:05] LABS: Glucose,Whole Blood 118 mg/dL (70-110)
[2024-01-08 08:37] LABS: Appearance,Urine Cloudy (Clear); Bacteria,Urine Many /hpf; Bilirubin,Urine Negative (Negative); Blood,Urine Negative (Negative); Color,Urine Colorless; Glucose,Urine (UA) Negative (Negative); Hyaline Casts,Urine 10 /lpf (0-2); Ketones,Urine Negative (Negative); Leukocyte Esterase,Urine Moderate (Negative); Mucus,Urine Rare /hpf; Nitrite,Urine Negative (Negative); Protein,Urine Negative (Negative); RBC,Urine 2 /hpf (0-5); Specific Gravity,Urine 1.007 (1.001-1.035); Squamous Epithelial Cell,Urine 1 /hpf (0-4); Urobilinogen,Urine <2.0 mg/dL (<2.0); WBC,Urine 22 /hpf (0-5)
[2024-01-08] MEDS: NON FORMULARY DRUG (Dulaglutide [Trulicity] 3 MG/0.5 ML Each) SQ SCH (08:41)
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
[2024-01-08 11:45] LABS: Glucose,Whole Blood 149 mg/dL (70-110)
[2024-01-08 12:09] VITALS: BP 116/63; PULSE 90
== END 2024-01-08 14:06 | disposition home or self-care (01) | DRG 885 ==
LOC: EC 12:14 → 3MHU 19:25
PROVIDERS: ADMIT Psychiatry & Neurology Psychiatry; ATTEND Psychiatry & Neurology Psychiatry
DX: F31.30 Bipolar disorder, current episode depressed, mild or moderate severity, unspecified (principal); I10 Essential (primary) hypertension; F43.10 Post-traumatic stress disorder, unspecified; F60.3 Borderline personality disorder; G24.01 Drug induced subacute dyskinesia; K76.89 Other specified diseases of liver; E11.9 Type 2 diabetes mellitus without complications; G25.81 Restless legs syndrome; G40.909 Epilepsy, unspecified, not intractable, without status epilepticus; F17.200 Nicotine dependence, unspecified, uncomplicated; M79.7 Fibromyalgia; T43.9 Poisoning by, adverse effect of and underdosing of unspecified psychotropic drug; E03.9 Hypothyroidism, unspecified; Z71.89 Other specified counseling; Z11.52 Encounter for screening for COVID-19; Z28.21 Immunization not carried out because of patient refusal; Z88.7 Allergy status to serum and vaccine; Z79.4 Long term (current) use of insulin; Z79.84 Long term (current) use of oral hypoglycemic drugs; Z82.49 Family history of ischemic heart disease and other diseases of the circulatory system
CPT/HCPCS: 36415; 80053; 80061; 80178; 80306; 81001; 82075; 83036; 84443; 85025; 87635; 93005; 96360; 96361; 99285

== ENCOUNTER 2024-07-18 21:11 | Emergency (ER) | payer MEDICARE, OTHER ==
--- NOTE | 2024-07-18 22:11 | ED ---
General Adult HPI - General Source: patient, RN notes reviewed Mode of arrival: ambulatory Limitations: no limitations <Vaishnavi Gloria - Last Filed: 07/18/24 22:06> - History of Present Illness -: week(s) Location: abdomen Radiation: non-radiation Quality: other (cramping) Consistency: intermittent Improves with: none Worsens with: none Associated Symptoms: denies other symptoms Treatments Prior to Arrival: none <Sang Burden - Last Filed: 07/19/24 00:37> - General Chief complaint: Abdominal Pain Stated complaint: Vaginal Bleeding - Pain Time Seen by Provider: 07/18/24 21:30 - History of Present Illness Initial comments: Quick [id number] female presents emergency room chief complaint of pelvic pain that has been worsening over the past 2 hours. Patient states that she has been experiencing abnormal uterine bleeding over the past month after she has not had a menstrual cycle for the past 5 years. She denies nausea, vomiting, fevers, chills. States that she has also been experiencing mild dysuria today. (Vaishnavi Gloria) Agree with above. Patient had seen the casing puller today and has outpatient workup pending for postmenopausal bleeding. The patient developed symptoms as above over the course of tonight. She was having bleeding. Patient states symptoms have improved a little from their onset. She is denying symptoms of anemia, no lightheadedness, palpitations, syncope, diaphoresis, dyspnea. (Sang Burden) - Related Data Home Medications Medication Instructions Recorded Confirmed metFORMIN HCL [Glucophage] 1,000 mg PO BID 09/29/15 01/01/24 Oxybutynin Chloride 5 mg PO BID 03/16/18 01/01/24 Levothyroxine Sodium [Synthroid] 50 mcg PO DAILY 05/30/19 01/01/24 Losartan Potassium [Cozaar] 100 mg PO DAILY 03/27/20 01/01/24 Propranolol [Inderal] 40 mg PO BID 03/27/20 01/01/24 gemfibroziL [Lopid] 600 mg PO BID 03/27/20 01/01/24 Baclofen 10 mg PO HS 01/01/24 01/01/24 Dulaglutide [Trulicity] 3 mg SQ Q7D 01/01/24 01/01/24 Insulin Glargine,Hum.rec.anlog 70 units SQ DAILY 01/01/24 01/01/24 [[place] Solostar] Loratadine [Claritin] 10 mg PO DAILY 01/01/24 01/01/24 Nystatin 100,000Unit/gm Cream 1 applic TOPICAL TID PRN 01/01/24 01/01/24 [Mycostatin Cream] Previous Rx's Medication Instructions Recorded ARIPiprazole [Abilify] 30 mg PO HS 30 Days #60 tab 01/08/24 Atorvastatin [Lipitor] 20 mg PO HS #0 tab 01/08/24 DULoxetine HCL [Cymbalta] 90 mg PO HS 30 Days #90 cap 01/08/24 Doxepin [SINEquan] 10 mg PO HS 30 Days #30 cap 01/08/24 Ibuprofen [Motrin] 600 mg PO Q6HR PRN tab 01/08/24 [place] Carbonate 600 mg PO HS 30 Days #30 cap 01/08/24 lamoTRIgine [LaMICtal] 100 mg PO BID 30 Days #60 tab 01/08/24 rOPINIRole HCL [Requip] 1 mg PO TID 30 Days #90 tab 01/08/24 Allergies Allergy/AdvReac Type Severity Reaction Status Date / Time coconut oil Allergy Unknown Anaphylaxis Verified 01/01/24 16:17 pineapple [Pineapple] Allergy Unknown Anaphylaxis Verified 01/01/24 16:17 licorice Allergy Unknown Verified 01/01/24 16:17 Influenza Virus Vaccines AdvReac Nausea & Verified 01/01/24 16:17 Vomiting Review of Systems ROS Other: All systems not noted in ROS Statement are negative. <Vaishnavi Gloria - Last Filed: 07/18/24 22:06> ROS Other: All systems not noted in ROS Statement are negative. Constitutional: Denies: fever, chills, weakness Respiratory: Denies: cough, dyspnea Cardiovascular: Denies: chest pain, palpitations, edema Gastrointestinal: Reports: abdominal pain. Denies: nausea, vomiting, diarrhea Genitourinary: Reports: abnormal menses. Denies: dysuria, hematuria Musculoskeletal: Denies: back pain Skin: Denies: rash Neurological: Denies: headache, weakness, numbness <Sang Burden - Last Filed: 07/19/24 00:37> ROS Statement: Those systems with pertinent positive or pertinent negative responses have been documented in the HPI. Past Medical History Past Medical History: Diabetes Mellitus, Fibromyalgia, Hyperlipidemia, Hypertension, Musculoskeletal Disorder, Seizure Disorder, Thyroid Disorder Additional Past Medical History / Comment(s): borderline personality,benign liver cyst, previous cocaine use History of Any Multi-Drug Resistant Organisms: None Reported Past Surgical History: Cholecystectomy Past Anesthesia/Blood Transfusion Reactions: No Reported Reaction Past Psychological History: Anxiety, Bipolar, Depression, Schizophrenia Smoking Status: Former smoker Past Alcohol Use History: None Reported Past Drug Use History: None Reported - Past Family History Father History Unknown: Yes Family Medical History: Myocardial Infarction (CA) Additional Family Medical History / Comment(s): passed of CA at 71 Mother History Unknown: Yes Family Medical History: Diabetes Mellitus Sister(s) History Unknown: Yes Family Medical History: COPD, Myocardial Infarction (CA) Additional Family Medical History / Comment(s): fatal CA at 50 <Vaishnavi Gloria - Last Filed: 07/18/24 22:06> General Exam Limitations: no limitations <Vaishnavi Gloria - Last Filed: 07/18/24 22:06> General appearance: alert, in no apparent distress Head exam: Present: atraumatic, normocephalic Eye exam: Present: normal appearance. Absent: scleral icterus, conjunctival injection ENT exam: Present: normal oropharynx Neck exam: Present: normal inspection Respiratory exam: Present: normal lung sounds bilaterally. Absent: respiratory distress, wheezes, rales, rhonchi, stridor, accessory muscle use Cardiovascular Exam: Present: regular rate, normal rhythm, normal heart sounds. Absent: systolic murmur, diastolic murmur, rubs, gallop GI/Abdominal exam: Present: soft. Absent: distended, tenderness, guarding, rebound, rigid, mass Extremities exam: Present: normal inspection, normal capillary refill. Absent: pedal edema, calf tenderness Back exam: Present: normal inspection Neurological exam: Present: alert Skin exam: Present: warm, dry, intact, normal color. Absent: rash <Sang Burden - Last Filed: 07/19/24 00:37> - General Exam Comments Initial Comments: Visual Physical Exam Vital signs reviewed General: Well-appearing, nontoxic, no acute distress. Head: Normocephalic, atraumatic Eyes: PERRLA, EOMI ENT: Airway patent Chest: Nonlabored breathing Skin: No visual rash, normal skin tone Neuro: Alert and oriented 3 Musculoskeletal: No gross abnormalities (Vaishnavi Gloria) Course Vital Signs 07/18/24 21:32 Temperature 98.3 F Pulse Rate 95 Respiratory 17 Rate Blood Pressure 126/73 O2 Sat by Pulse 92 L Oximetry Medical Decision Making <Vaishnavi Gloria - Last Filed: 07/18/24 22:06> - Lab Data Result diagrams: 07/18/24 23:41 07/18/24 23:41 <Sang Burden - Last Filed: 07/19/24 00:37> - Medical Decision Making I completed the quick note portion of this chart signed Vaishnavi Gloria PA-C (Vaishnavi Gloria) - Lab Data Lab Results 07/18/24 07/18/24 07/18/24 Range/Units 23:41 23:41 23:41 WBC 12.8 H (3.8-10.6) k/uL RBC 4.27 (3.80-5.40) m/uL Hgb 12.3 (11.4-16.0) gm/dL Hct 38.7 (34.0-46.0) % MCV 90.5 (80.0-100.0) fL MCH 28.9 (25.0-35.0) pg MCHC 31.9 (31.0-37.0) g/dL RDW 13.8 (11.5-15.5) % Plt Count 347 (150-450) k/uL MPV 6.4 Neutrophils % 69 % Lymphocytes % 21 % Monocytes % 3 % Eosinophils % 5 % Basophils % 1 % Neutrophils # 8.9 H (1.3-7.7) k/uL Lymphocytes # 2.7 (1.0-4.8) k/uL Monocytes # 0.4 (0-1.0) k/uL Eosinophils # 0.6 (0-0.7) k/uL Basophils # 0.1 (0-0.2) k/uL PT 10.2 (10.0-12.5) sec INR 0.9 (<1.2) APTT 32.6 H (22.0-30.0) sec Sodium 133 L (137-145) mmol/L Potassium 4.4 (3.5-5.1) mmol/L Chloride 105 (98-107) mmol/L Carbon Dioxide 14 L (22-30) mmol/L Anion Gap 14 mmol/L BUN 16 (7-17) mg/dL Creatinine 0.57 (0.52-1.04) mg/dL Est GFR (CKD-EPI)AfAm >90 (>60 ml/min/1.73 sqM) Est GFR (CKD-EPI)NonAf >90 (>60 ml/min/1.73 sqM) Glucose 272 H (74-99) mg/dL Calcium 9.8 (8.4-10.2) mg/dL Total Bilirubin 0.7 (0.2-1.3) mg/dL AST 64 H (14-36) U/L ALT 29 (4-34) U/L Alkaline Phosphatase 114 (38-126) U/L Total Protein 7.7 (6.3-8.2) g/dL Albumin 4.6 (3.5-5.0) g/dL Lipase 204 (23-300) U/L Disposition <Vaishnavi Gloria - Last Filed: 07/18/24 22:06> Is patient prescribed a controlled substance at d/c from ED?: No <Sang Burden - Last Filed: 07/19/24 00:37> Clinical Impression: Post-menopausal bleeding, Hyperglycemia Disposition: HOME SELF-CARE Condition: Fair Instructions (If sedation given, give patient instructions): Abnormal (Dysfunctional) Uterine Bleeding (ED), Diabetic Hyperglycemia (ED) Additional Instructions: We discussed, you must follow with the casing puller to ensure that your symptoms are not related to cancer or other serious gynecologic condition. Referrals: [facility] [Primary Care Provider] - 1-2 days [facility] [REFERRING] - 1-2 days
--- NOTE | 2024-07-18 23:05 | US ---
EXAMINATION TYPE: US transvaginal DATE OF EXAM: 07/18/2024 COMPARISON: NONE CLINICAL INDICATION: Female, 58 years old with history of abnormal uterine bleeding, pain; Patient st ates 1 month long heavy bleeding after not bleeding for 5 years. . TECHNIQUE: Transvaginal (TV). Transvaginal sonographic images were medically necessary to better assess the following anatomy: Endo metrium FINDINGS: Date of LMP: Currently bleeding for month and a half EXAM MEASUREMENTS: Uterus: 8.6 x 4.4 x 5.5 cm Endometrial Stripe: Unable to clearly visualize Right Ovary: Obscured by bowel gas Left Ovary: Obscured by bowel gas Exam is limited due to overlying bowel gas 1. Uterus: Anteverted Appears wnl as best seen 2. Endometrium: Unable to clearly visualize 3. Right Ovary: Obscured by overlying bowel gas 4. Left Ovary: Obscured by overlying bowel gas 5. Bilateral Adnexa: There is a 4.2 x 3.1 x 4.0cm area of varying echogenicity near the left of the cervix, it is difficult to determine whether this area arises from the cervix. Possible lesion vs lef t ovary vs other? 6. Posterior cul-de-sac: No free fluid seen Suboptimal study. Heterogeneous anteverted uterus is present. Endometrial stripe not definitively see n suspected atrophic. No free fluid. In the region of the left cervix there is 4.2 x 3.1 x 4.0 cm oval hypoechoic lesion suspicious for no rmal-sized left ovary. Right ovary not distinctly seen. No suspicious solid or cystic adnexal mass is noted. IMPRESSION: Suboptimal study without source of abnormal bleeding clearly seen. [facility] follow-u p and possible nonemergent pelvic MRI to further evaluate. [facility], , 07/18/2024 11:03 PM
[2024-07-18 23:49] LABS: Basophils # (A) 0.1 k/uL (0-0.2); Basophils % (A) 1 %; Eosinophils # (A) 0.6 k/uL (0-0.7); Eosinophils % (A) 5 %; HCT 38.7 % (34.0-46.0); HGB 12.3 gm/dL (11.4-16.0); Lymphocytes # (A) 2.7 k/uL (1.0-4.8); Lymphocytes % (A) 21 %; MCH 28.9 pg (25.0-35.0); MCHC 31.9 g/dL (31.0-37.0); MCV 90.5 fL (80.0-100.0); Mean Platelet Volume 6.4; Monocytes # (A) 0.4 k/uL (0-1.0); Monocytes % (A) 3 %; Neutrophils # (A) 8.9 k/uL (1.3-7.7); Neutrophils % (A) 69 %; Platelet Count 347 k/uL (150-450); RBC 4.27 m/uL (3.80-5.40); RDW 13.8 % (11.5-15.5); WBC 12.8 k/uL (3.8-10.6)
[2024-07-19] MEDS: HYDROcodone/APAP 5-325MG 1 EACH TAB PO STA
[2024-07-19 00:02] LABS: INR 0.9 (<1.2); Partial Thromboplastin Time 32.6 sec (22.0-30.0); Prothrombin Time 10.2 sec (10.0-12.5)
[2024-07-19] MEDS: TRANEXAMIC 1,000 MG/100ML-NACL 1,000 MG in SALINE 1 100ML.BAG IVPB ONE (00:04)
[2024-07-19 00:12] LABS: ALT 29 U/L (4-34); African American GFR (CKD) >90 (>60 ml/min/1.73 sqM); Albumin 4.6 g/dL (3.5-5.0); Anion Gap 14 mmol/L; Blood Urea Nitrogen 16 mg/dL (7-17); Calcium 9.8 mg/dL (8.4-10.2); Carbon Dioxide 14 mmol/L (22-30); Chloride 105 mmol/L (98-107); Glucose 272 mg/dL (74-99); Lipase 204 U/L (23-300); Non-African American GFR(CKD) >90 (>60 ml/min/1.73 sqM); Sodium 133 mmol/L (137-145); Total Bilirubin 0.7 mg/dL (0.2-1.3); Total Protein 7.7 g/dL (6.3-8.2)
[2024-07-19 00:15] LABS: AST 64 U/L (14-36); Alkaline Phosphatase 114 U/L (38-126); Potassium 4.4 mmol/L (3.5-5.1)
[2024-07-19 00:49] LABS: Appearance,Urine Cloudy (Clear); Bacteria,Urine Many /hpf; Bilirubin,Urine Negative (Negative); Blood,Urine Large (Negative); Color,Urine Light Yellow; Glucose,Urine (UA) 2+ (Negative); Ketones,Urine Negative (Negative); Leukocyte Esterase,Urine Large (Negative); Nitrite,Urine Negative (Negative); Protein,Urine Trace (Negative); RBC,Urine >182 /hpf (0-5); Specific Gravity,Urine 1.009 (1.001-1.035); Urobilinogen,Urine <2.0 mg/dL (<2.0); WBC,Urine 160 /hpf (0-5)
[2024-07-19 00:53] VITALS: RESP 18
[2024-07-19 01:19] VITALS: BP 122/78; PULSE 66; TEMP 98
== END 2024-07-19 01:19 | disposition home or self-care (01) ==
LOC: EC 21:11
DX: N95.0 Postmenopausal bleeding (principal); E11.65 Type 2 diabetes mellitus with hyperglycemia; Z87.891 Personal history of nicotine dependence; Z88.7 Allergy status to serum and vaccine; Z91.018 Allergy to other foods; Z88.8 Allergy status to other drugs, medicaments and biological substances
CPT/HCPCS: 36415; 76830; 80053; 81001; 83690; 85025; 85610; 85730; 96365; 99284

== ENCOUNTER 2024-07-26 12:37 | Emergency (ER) | payer MEDICARE, OTHER ==
[2024-07-26 12:44] VITALS: RESP 18
--- NOTE | 2024-07-26 13:23 | ED ---
Female Urogenital HPI - General Source: patient, RN notes reviewed Mode of arrival: EMS Limitations: no limitations <Vaishnavi Gloria - Last Filed: 07/26/24 13:22> <Joaquin Arevalo - Last Filed: 07/26/24 16:25> - General Chief complaint: Vaginal Bleeding Stated complaint: vaginal bleeding Time Seen by Provider: 07/26/24 12:50 - History of Present Illness Initial comments: Quick [id number] female presenting to the emergency department chief complaint of persistent vaginal bleeding soaking through approximately 1 pull-up every hour since this morning. Patient states that she was evaluated proximally month and a half ago for the similar issue. Patient has seen gynecology where they have scheduled an MRI for her outpatient. Patient states that she has been feeling lightheaded and dizzy. denies chest pain, shortness of breath, heart palpitations or lightheadedness (Vaishnavi Gloria) Dictation was produced using [employer] dictation software. please excuse any grammatical, word or spelling errors. Chief Complaint: 58-year-old female presents to the ER for vaginal bleeding History of Present Illness: Patient is a 58-year-old female presents to the emergency department with vaginal bleeding. Patient was seen in the emergency department 9 days ago. She came in for the same complaint. She had an ultrasound performed which was found to be unremarkable however she was referred to [facility] [employer]. Patient states she did follow-up with [facility] [employer] [employer] who scheduled an outpatient MRI for her. Patient states today she had significant amount of bleeding. Denies any abdominal pain. Denies any nausea or vomiting. The ROS documented in this emergency department record has been reviewed and confirmed by me. Those systems with pertinent positive or negative responses have been documented in the HPI. All other systems are other negative and/or noncontributory. (Joaquin Arevalo) - Related Data Home Medications Medication Instructions Recorded Confirmed metFORMIN HCL [Glucophage] 1,000 mg PO BID 09/29/15 01/01/24 Oxybutynin Chloride 5 mg PO BID 03/16/18 01/01/24 Levothyroxine Sodium [Synthroid] 50 mcg PO DAILY 05/30/19 01/01/24 Losartan Potassium [Cozaar] 100 mg PO DAILY 03/27/20 01/01/24 Propranolol [Inderal] 40 mg PO BID 03/27/20 01/01/24 gemfibroziL [Lopid] 600 mg PO BID 03/27/20 01/01/24 Baclofen 10 mg PO HS 01/01/24 01/01/24 Dulaglutide [Trulicity] 3 mg SQ Q7D 01/01/24 01/01/24 Insulin Glargine,Hum.rec.anlog 70 units SQ DAILY 01/01/24 01/01/24 [Toujeo Solostar] Loratadine [Claritin] 10 mg PO DAILY 01/01/24 01/01/24 Nystatin 100,000Unit/gm Cream 1 applic TOPICAL TID PRN 01/01/24 01/01/24 [Mycostatin Cream] Previous Rx's Medication Instructions Recorded ARIPiprazole [Abilify] 30 mg PO HS 30 Days #60 tab 01/08/24 Atorvastatin [Lipitor] 20 mg PO HS #0 tab 01/08/24 DULoxetine HCL [Cymbalta] 90 mg PO HS 30 Days #90 cap 01/08/24 Doxepin [SINEquan] 10 mg PO HS 30 Days #30 cap 01/08/24 Ibuprofen [Motrin] 600 mg PO Q6HR PRN tab 01/08/24 Strawn Carbonate 600 mg PO HS 30 Days #30 cap 01/08/24 lamoTRIgine [LaMICtal] 100 mg PO BID 30 Days #60 tab 01/08/24 rOPINIRole HCL [Requip] 1 mg PO TID 30 Days #90 tab 01/08/24 Allergies Allergy/AdvReac Type Severity Reaction Status Date / Time coconut oil Allergy Unknown Anaphylaxis Verified 07/26/24 12:43 pineapple [Pineapple] Allergy Unknown Anaphylaxis Verified 07/26/24 12:43 licorice Allergy Unknown Verified 07/26/24 12:43 Influenza Virus Vaccines AdvReac Nausea & Verified 07/26/24 12:43 Vomiting Review of Systems ROS Other: All systems not noted in ROS Statement are negative. <Vaishnavi Gloria - Last Filed: 07/26/24 13:22> ROS Other: All systems not noted in ROS Statement are negative. <Joaquin Arevalo - Last Filed: 07/26/24 16:25> ROS Statement: Those systems with pertinent positive or pertinent negative responses have been documented in the HPI. Past Medical History Past Medical History: Diabetes Mellitus, Fibromyalgia, Hyperlipidemia, Hypertension, Musculoskeletal Disorder, Seizure Disorder, Thyroid Disorder Additional Past Medical History / Comment(s): borderline personality,benign liver cyst, previous cocaine use History of Any Multi-Drug Resistant Organisms: None Reported Past Surgical History: Cholecystectomy Past Anesthesia/Blood Transfusion Reactions: No Reported Reaction Past Psychological History: Anxiety, Bipolar, Depression, Schizophrenia Smoking Status: Former smoker Past Alcohol Use History: None Reported Past Drug Use History: None Reported - Past Family History Father History Unknown: Yes Family Medical History: Myocardial Infarction (GA) Additional Family Medical History / Comment(s): passed of GA at 71 Mother History Unknown: Yes Family Medical History: Diabetes Mellitus Sister(s) History Unknown: Yes Family Medical History: COPD, Myocardial Infarction (GA) Additional Family Medical History / Comment(s): fatal GA at 50 <Vaishnavi Gloria - Last Filed: 07/26/24 13:22> General Exam Limitations: no limitations <Vaishnavi Gloria - Last Filed: 07/26/24 13:22> <Joaquin Arevalo - Last Filed: 07/26/24 16:25> - General Exam Comments Initial Comments: Visual Physical Exam Vital signs reviewed General: Well-appearing, nontoxic, no acute distress. Head: Normocephalic, atraumatic Eyes: PERRLA, EOMI ENT: Airway patent Chest: Nonlabored breathing Skin: No visual rash, normal skin tone Neuro: Alert and oriented 3 Musculoskeletal: No gross abnormalities (Vaishnavi Gloria) PHYSICAL EXAM: General Impression: Alert and oriented x3, not in acute distress HEENT: Normocephalic atraumatic, extra-ocular movements intact, pupils equal and reactive to light bilaterally, mucous membranes moist. Cardiovascular: Heart regular rate and rhythm Chest: Able to complete full sentences, no retractions, no tachypnea Abdomen: abdomen soft, non-tender, non-distended, no organomegaly Musculoskeletal: Pulses present and equal in all extremities, no peripheral edema Motor: no focal deficits noted Neurological: CN II-XII grossly intact, no focal motor or sensory deficits noted Skin: Intact with no visualized rashes Psych: Normal affect and mood (Joaquin Arevalo) Course <Joaquin Arevalo - Last Filed: 07/26/24 16:25> Vital Signs 07/26/24 12:42 Temperature 98.2 F Pulse Rate 79 Respiratory 18 Rate Blood Pressure 110/71 O2 Sat by Pulse 96 Oximetry - Reevaluation(s) Reevaluation #1: 07/26/24 16:21 Pelvic exam: Some blood clot seen in the vaginal orifice. No active bleeding. There did appear to be some debris from the diaper. (Joaquin Arevalo) Medical Decision Making <Vaishnavi Gloria - Last Filed: 07/26/24 13:22> - Lab Data Result diagrams: 07/26/24 13:57 07/26/24 13:57 <Joaquin Arevalo - Last Filed: 07/26/24 16:25> - Medical Decision Making I completed the quick note portion of this chart signed Vaishnavi Gloria PA-C (Vaishnavi Gloria) Was pt. sent in by a medical professional or institution ([facility], [facility], urgent care, hospital, or alf...) When possible be specific @ -No Did you speak to anyone other than the patient for history (EMS, parent, family, police, friend...)? What history was obtained from this source @ -No Did you review nursing and triage notes (agree or disagree)? Why? @ -I reviewed and agree with nursing and triage notes Were old charts reviewed (outside hosp., previous admission, EMS record, old EKG, old radiological studies, urgent care reports/EKG's, alf records)? Report findings @ -No old charts were reviewed Differential Diagnosis (chest pain, altered mental status, abdominal pain women, abdominal pain men, vaginal bleeding, musculoskeletal, weakness, fever, dyspnea, syncope, headache, dizziness, GI bleed, back pain, seizure, CVA, p alpatations, mental health)? @ -Differential Abdominal Pain Women: Appendicitis, Cholecystitis, diverticulosis, ischemic bowel, pancreatitis, hepatitis, UTI, gastroenteritis, AAA, incarcerated hernia, bowel obstruction, constipation, inflammatory bowel, hepatitis, peptic ulcer disease, splenic inf arction, perforated viscus, vulvitis, ovarian torsion, PID, kidney stone, placenta abruption, this is not meant to be an all-inclusive list EKG interpreted by me (3pts min.). @ -None done X-rays interpreted by me (1pt min.). @ -None done CT interpreted by me (1pt min.). @ -CT ab pelvis shows no acute processes incidental finding of 16mm density in his chest. U/S interpreted by me (1pt. min.). @ -None done What testing was considered but not performed or refused? (CT, X-rays, U/S, labs)? Why? @ -None What meds were considered but not given or refused? Why? @ -None Was smoking cessation discussed for >3mins.? @ -No Were there social determinants of health that impacted care today? How? (Homelessness, low income, unemployed, alcoholism, drug addiction, transportation, low edu. Level, literacy, decrease access to med. care, senior living, rehab)? @ -No Was there de-escalation of care discussed even if they declined (Discuss DNR or withdrawal of care, Hospice)? DNR status @ -No What co-morbidities impacted this encounter? (DM, HTN, Smoking, COPD, CAD, Cancer, CVA, ARF, Chemo, Hep., AIDS, mental health diagnosis, sleep apnea, morbid obesity)? @ -None Was patient admitted / discharged? Hospital course, mention meds given and route, prescriptions, significant lab abnormalities, going to OR and other pertinent info. @ -58-year-old female presents to the emergency department for vaginal bleeding. She was seen here 8 days ago for the same issue. She complains of abdominal pain. Vital signs upon arrival are within acceptable limits. Physical examination is benign. Pelvic exam performed showing no active bleeding. Patient tolerated pelvic exam well. Laboratory evaluation obtained. Labs are within acceptable limits. Urinalysis however showed greater than 182 red blood cells and 27 white blood cells. Patient denying any urinary symptoms. Urine will be sent off for culture. Patient notified of the results of her labs and imaging. She is discharged told to follow-up with her outpatient specialist. Did you discuss the management of the patient with other professionals (professionals i.e. , PA, [employer], lab, RT, psych nurse, neonatal social worker, supervisory historian, teacher, financial aids officer, director case management)? Give summary @ -No Was critical care preformed (if so, how long)? @ -No Undiagnosed new problem with uncertain prognosis? @ -No Drug Therapy requiring intensive monitoring for toxicity (Heparin, Nitro, Insulin, Cardizem)? @ -No Were any procedures done? @ -No Diagnosis/symptom? Acute, or Chronic, or Acute on Chronic? Uncomplicated (without systemic symptoms) or Complicated (systemic symptoms)? @ -Vaginal bleeding Side effects of treatment? @ -No Exacerbation, Progression, or Severe Exacerbation? @ -No Poses a threat to life or bodily function? How? (Chest pain, USA, GA, pneumonia, PE, COPD, DKA, ARF, appy, cholecystitis, CVA, Diverticulitis, Homicidal, Suicidal, threat to staff... and all critical care pts) @ -No (Joaquin Arevalo) - Lab Data Lab Results 07/26/24 07/26/24 07/26/24 Range/Units 13:57 13:57 13:57 WBC 12.1 H (3.8-10.6) k/uL RBC 4.25 (3.80-5.40) m/uL Hgb 12.3 (11.4-16.0) gm/dL Hct 38.7 (34.0-46.0) % MCV 90.9 (80.0-100.0) fL MCH 29.0 (25.0-35.0) pg MCHC 31.9 (31.0-37.0) g/dL RDW 13.8 (11.5-15.5) % Plt Count 381 (150-450) k/uL MPV 6.5 Neutrophils % 65 % Lymphocytes % 22 % Monocytes % 5 % Eosinophils % 6 % Basophils % 1 % Neutrophils # 7.8 H (1.3-7.7) k/uL Lymphocytes # 2.7 (1.0-4.8) k/uL Monocytes # 0.6 (0-1.0) k/uL Eosinophils # 0.8 H (0-0.7) k/uL Basophils # 0.1 (0-0.2) k/uL PT 10.3 (10.0-12.5) sec INR 0.9 (<1.2) APTT 30.5 H (22.0-30.0) sec Sodium (137-145) mmol/L Potassium (3.5-5.1) mmol/L Chloride (98-107) mmol/L Carbon Dioxide (22-30) mmol/L Anion Gap mmol/L BUN (7-17) mg/dL Creatinine (0.52-1.04) mg/dL Est GFR (CKD-EPI)AfAm (>60 ml/min/1.73 sqM) Est GFR (CKD-EPI)NonAf (>60 ml/min/1.73 sqM) Glucose (74-99) mg/dL Calcium (8.4-10.2) mg/dL Total Bilirubin (0.2-1.3) mg/dL AST (14-36) U/L ALT (4-34) U/L Alkaline Phosphatase (38-126) U/L Total Protein (6.3-8.2) g/dL Albumin (3.5-5.0) g/dL Urine Color Yellow Urine Appearance Cloudy H (Clear) Urine pH 6.0 (5.0-8.0) Ur Specific [place] 1.011 (1.001-1.035) Urine Protein Trace H (Negative) Urine Glucose (UA) Trace H (Negative) Urine Ketones Negative (Negative) Urine Blood Large H (Negative) Urine Nitrite Negative (Negative) Urine Bilirubin Negative (Negative) Urine Urobilinogen <2.0 (<2.0) mg/dL Ur Leukocyte Esterase Large H (Negative) Urine RBC >182 H (0-5) /hpf Urine WBC 27 H (0-5) /hpf Calcium Oxalate Crystal Rare H (None) /hpf Urine Bacteria Many H (None) /hpf 07/26/24 Range/Units 13:57 WBC (3.8-10.6) k/uL RBC (3.80-5.40) m/uL Hgb (11.4-16.0) gm/dL Hct (34.0-46.0) % MCV (80.0-100.0) fL MCH (25.0-35.0) pg MCHC (31.0-37.0) g/dL RDW (11.5-15.5) % Plt Count (150-450) k/uL MPV Neutrophils % % Lymphocytes % % Monocytes % % Eosinophils % % Basophils % % Neutrophils # (1.3-7.7) k/uL Lymphocytes # (1.0-4.8) k/uL Monocytes # (0-1.0) k/uL Eosinophils # (0-0.7) k/uL Basophils # (0-0.2) k/uL PT (10.0-12.5) sec INR (<1.2) APTT (22.0-30.0) sec Sodium 134 L (137-145) mmol/L Potassium 5.5 H (3.5-5.1) mmol/L Chloride 104 (98-107) mmol/L Carbon Dioxide 20 L (22-30) mmol/L Anion Gap 10 mmol/L BUN 23 H (7-17) mg/dL Creatinine 0.55 (0.52-1.04) mg/dL Est GFR (CKD-EPI)AfAm >90 (>60 ml/min/1.73 sqM) Est GFR (CKD-EPI)NonAf >90 (>60 ml/min/1.73 sqM) Glucose 205 H (74-99) mg/dL Calcium 10.2 (8.4-10.2) mg/dL Total Bilirubin 0.6 (0.2-1.3) mg/dL AST 60 H (14-36) U/L ALT 29 (4-34) U/L Alkaline Phosphatase 100 (38-126) U/L Total Protein 7.9 (6.3-8.2) g/dL Albumin 4.8 (3.5-5.0) g/dL Urine Color Urine Appearance (Clear) Urine pH (5.0-8.0) Ur Specific [place] (1.001-1.035) Urine Protein (Negative) Urine Glucose (UA) (Negative) Urine Ketones (Negative) Urine Blood (Negative) Urine Nitrite (Negative) Urine Bilirubin (Negative) Urine Urobilinogen (<2.0) mg/dL Ur Leukocyte Esterase (Negative) Urine RBC (0-5) /hpf Urine WBC (0-5) /hpf Calcium Oxalate Crystal (None) /hpf Urine Bacteria (None) /hpf Disposition <Vaishnavi Gloria - Last Filed: 07/26/24 13:22> Is patient prescribed a controlled substance at d/c from ED?: No Time of Disposition: 16:24 <Joaquin Arevalo - Last Filed: 07/26/24 16:25> Clinical Impression: Vaginal bleeding Disposition: HOME SELF-CARE Condition: Good Instructions (If sedation given, give patient instructions): Dysmenorrhea (ED) Additional Instructions: 1.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 There was some incidental findings seen on your CT that you should follow-up with your primary care doctor for. There was a spot on your lungs that would likely need further management. [facility] [[facility]] - 1-2 days
[2024-07-26 14:23] LABS: Basophils # (A) 0.1 k/uL (0-0.2); Basophils % (A) 1 %; Eosinophils # (A) 0.8 k/uL (0-0.7); Eosinophils % (A) 6 %; HCT 38.7 % (34.0-46.0); HGB 12.3 gm/dL (11.4-16.0); Lymphocytes # (A) 2.7 k/uL (1.0-4.8); Lymphocytes % (A) 22 %; MCHC 31.9 g/dL (31.0-37.0); MCV 90.9 fL (80.0-100.0); Mean Platelet Volume 6.5; Monocytes # (A) 0.6 k/uL (0-1.0); Monocytes % (A) 5 %; Neutrophils # (A) 7.8 k/uL (1.3-7.7); Neutrophils % (A) 65 %; Platelet Count 381 k/uL (150-450); RBC 4.25 m/uL (3.80-5.40); RDW 13.8 % (11.5-15.5); WBC 12.1 k/uL (3.8-10.6)
[2024-07-26 14:28] LABS: ALT 29 U/L (4-34); African American GFR (CKD) >90 (>60 ml/min/1.73 sqM); Albumin 4.8 g/dL (3.5-5.0); Anion Gap 10 mmol/L; Blood Urea Nitrogen 23 mg/dL (7-17); Calcium 10.2 mg/dL (8.4-10.2); Carbon Dioxide 20 mmol/L (22-30); Chloride 104 mmol/L (98-107); Glucose 205 mg/dL (74-99); Non-African American GFR(CKD) >90 (>60 ml/min/1.73 sqM); Sodium 134 mmol/L (137-145); Total Bilirubin 0.6 mg/dL (0.2-1.3); Total Protein 7.9 g/dL (6.3-8.2)
[2024-07-26 14:31] LABS: Appearance,Urine Cloudy (Clear); Bacteria,Urine Many /hpf; Bilirubin,Urine Negative (Negative); Blood,Urine Large (Negative); Calcium Oxalate Crystals,Urine Rare /hpf; Color,Urine Yellow; Glucose,Urine (UA) Trace (Negative); Ketones,Urine Negative (Negative); Leukocyte Esterase,Urine Large (Negative); Nitrite,Urine Negative (Negative); Protein,Urine Trace (Negative); RBC,Urine >182 /hpf (0-5); Specific Gravity,Urine 1.011 (1.001-1.035); Urobilinogen,Urine <2.0 mg/dL (<2.0); WBC,Urine 27 /hpf (0-5)
[2024-07-26 14:48] LABS: AST 60 U/L (14-36); Alkaline Phosphatase 100 U/L (38-126); Potassium 5.5 mmol/L (3.5-5.1)
[2024-07-26 14:55] LABS: INR 0.9 (<1.2); Partial Thromboplastin Time 30.5 sec (22.0-30.0); Prothrombin Time 10.3 sec (10.0-12.5)
--- NOTE | 2024-07-26 15:36 | CT ---
EXAMINATION TYPE: CT abdomen pelvis w con DATE OF EXAM: 07/26/2024 COMPARISON: 07/23/2014 CLINICAL INDICATION: Female, 58 years old with history of abdominal pain, vaginal bleeding; PHH, abd pain with vaginal bleeding TECHNIQUE: Performed without Oral Contrast and with IV Contrast, patient injected with 100 mL of Isovue 300. CT DLP: 1580.[address] CTDI: mGy Automated exposure control for dose reduction was used. FINDINGS: There is a 16 mm nodular density in the lingula. There is surgical absence of the gallbladder. There is no biliary ductal dilatation. There is an ill-defined 3.7 cm predominantly hypoechoic density mass in the left lobe of the liver wh ich was seen previously is stable. This most likely represents a benign hemangioma. There is moderate steatosis of the liver. There is no organomegaly or focal mass of the pancreas, spleen or adrenal glands. There is no solid renal mass or hydronephrosis and there is homogeneous contrast enhancement of the r enal parenchyma. The caliber the abdominal aorta is normal is no retroperitoneal adenopathy or hemorr leana. The bowel loops are normal in caliber and there is no evidence of dilatation or obstruction. No infla mmatory changes are identified in the bowel wall or mesentery. There is no free intraperitoneal air or fluid. No pelvic mass, free fluid, abscess or adenopathy. The osseous structures and soft tissues are intact. IMPRESSION: 1. 16 mm density in the lingula which could represent scarring or atelectasis however CT chest is rec ommended for further evaluation of the lung parenchyma. 2. Stable mass in the left lobe of liver likely benign hemangioma. 3. Moderate steatosis of the liver. 4. No acute changes within the abdomen or pelvis. [facility], , 07/26/2024 3:34 PM
[2024-07-26 16:58] VITALS: BP 112/81; PULSE 76; TEMP 98.1
== END 2024-07-26 17:51 | disposition home or self-care (01) ==
LOC: EC 12:37
DX: N93.9 Abnormal uterine and vaginal bleeding, unspecified (principal); Z87.891 Personal history of nicotine dependence; Z88.7 Allergy status to serum and vaccine; Z91.018 Allergy to other foods; Z88.8 Allergy status to other drugs, medicaments and biological substances
CPT/HCPCS: 36415; 80053; 85025; 85610; 85730; 81001; 74177; 99284; Q9967

== ENCOUNTER 2024-08-02 11:29 | Emergency (ER) | payer MEDICARE, OTHER ==
[2024-08-02] MEDS: SODIUM CHLORIDE 0.9% 1,000 ML IV STA (12:00)
[2024-08-02 12:13] LABS: Basophils # (A) 0.1 k/uL (0-0.2); Basophils % (A) 1 %; Eosinophils # (A) 0.6 k/uL (0-0.7); Eosinophils % (A) 7 %; HCT 33.9 % (34.0-46.0); Lymphocytes # (A) 1.8 k/uL (1.0-4.8); Lymphocytes % (A) 20 %; MCH 29.3 pg (25.0-35.0); MCHC 32.4 g/dL (31.0-37.0); MCV 90.4 fL (80.0-100.0); Mean Platelet Volume 6.6; Monocytes # (A) 0.4 k/uL (0-1.0); Monocytes % (A) 5 %; Neutrophils # (A) 5.9 k/uL (1.3-7.7); Neutrophils % (A) 66 %; Platelet Count 297 k/uL (150-450); RBC 3.76 m/uL (3.80-5.40); RDW 13.6 % (11.5-15.5)
[2024-08-02 12:16] VITALS: RESP 16
[2024-08-02 12:23] LABS: ALT 29 U/L (4-34); AST 55 U/L (14-36); African American GFR (CKD) >90 (>60 ml/min/1.73 sqM); Albumin 4.6 g/dL (3.5-5.0); Alkaline Phosphatase 108 U/L (38-126); Anion Gap 12 mmol/L; Blood Urea Nitrogen 24 mg/dL (7-17); Calcium 10.2 mg/dL (8.4-10.2); Carbon Dioxide 24 mmol/L (22-30); Chloride 99 mmol/L (98-107); Glucose 186 mg/dL (74-99); Magnesium 1.7 mg/dL (1.6-2.3); Non-African American GFR(CKD) >90 (>60 ml/min/1.73 sqM); Phosphorus 4.5 mg/dL (2.5-4.5); Sodium 135 mmol/L (137-145); Total Bilirubin 0.4 mg/dL (0.2-1.3); Total Protein 7.3 g/dL (6.3-8.2)
--- NOTE | 2024-08-02 12:31 | ED ---
Weakness HPI - General Chief complaint: Vaginal Bleeding Stated complaint: vaginal bleeding Time Seen by Provider: 08/02/24 11:34 Source: patient, EMS, RN notes reviewed Mode of arrival: EMS Limitations: no limitations - History of Present Illness Initial comments: This is a 58-year-old female who presents to the emergency department for weakness and dizziness. Patient has been having vaginal bleeding over the last 3 weeks, however it is getting better. For the first couple of weeks she was changing her pad every hour and she is now only changing it once a day. She is planning on having an MRI of the pelvis soon. She was evaluated here on 07/26 for vaginal bleeding and discharge home. She followed up with her primary care provider today who reviewed her ER report. Patient states that her PCP was concerned that some of her lab work was abnormal and not appropriately addressed, prompting him to send her to the emergency department for further evaluation. States that she feels essentially the same as she did a couple of weeks ago in that she is still having dizziness. Denies any chest pain or shortness of breath. MD Complaint: generalized weakness - Related Data Home Medications Medication Instructions Recorded Confirmed metFORMIN HCL [Glucophage] 1,000 mg PO BID 09/29/15 01/01/24 Oxybutynin Chloride 5 mg PO BID 03/16/18 01/01/24 Levothyroxine Sodium [Synthroid] 50 mcg PO DAILY 05/30/19 01/01/24 Losartan Potassium [Cozaar] 100 mg PO DAILY 03/27/20 01/01/24 Propranolol [Inderal] 40 mg PO BID 03/27/20 01/01/24 gemfibroziL [Lopid] 600 mg PO BID 03/27/20 01/01/24 Baclofen 10 mg PO HS 01/01/24 01/01/24 Dulaglutide [Trulicity] 3 mg SQ Q7D 01/01/24 01/01/24 Insulin Glargine,Hum.rec.anlog 70 units SQ DAILY 01/01/24 01/01/24 [Toujeo Solostar] Loratadine [Claritin] 10 mg PO DAILY 01/01/24 01/01/24 Nystatin 100,000Unit/gm Cream 1 applic TOPICAL TID PRN 01/01/24 01/01/24 [Mycostatin Cream] Previous Rx's Medication Instructions Recorded ARIPiprazole [Abilify] 30 mg PO HS 30 Days #60 tab 01/08/24 Atorvastatin [Lipitor] 20 mg PO HS #0 tab 01/08/24 DULoxetine HCL [Cymbalta] 90 mg PO HS 30 Days #90 cap 01/08/24 Doxepin [SINEquan] 10 mg PO HS 30 Days #30 cap 01/08/24 Ibuprofen [Motrin] 600 mg PO Q6HR PRN tab 01/08/24 Kell Carbonate 600 mg PO HS 30 Days #30 cap 01/08/24 lamoTRIgine [LaMICtal] 100 mg PO BID 30 Days #60 tab 01/08/24 rOPINIRole HCL [Requip] 1 mg PO TID 30 Days #90 tab 01/08/24 cefuroxime axetiL [Ceftin] 500 mg PO BID 7 Days #14 tab 08/02/24 Allergies Allergy/AdvReac Type Severity Reaction Status Date / Time coconut oil Allergy Unknown Anaphylaxis Verified 08/02/24 11:40 pineapple [Pineapple] Allergy Unknown Anaphylaxis Verified 08/02/24 11:40 licorice Allergy Unknown Verified 08/02/24 11:40 Influenza Virus Vaccines AdvReac Nausea & Verified 08/02/24 11:40 Vomiting Review of Systems ROS Statement: Those systems with pertinent positive or pertinent negative responses have been documented in the HPI. ROS Other: All systems not noted in ROS Statement are negative. Past Medical History Past Medical History: Diabetes Mellitus, Fibromyalgia, Hyperlipidemia, Hypertension, Musculoskeletal Disorder, Seizure Disorder, Thyroid Disorder Additional Past Medical History / Comment(s): Diabetes Type 2, Borderline personality, Benign liver cyst, previous cocaine use, abnormal vaginal bleeding since 2023 History of Any Multi-Drug Resistant Organisms: None Reported Past Surgical History: Cholecystectomy Past Anesthesia/Blood Transfusion Reactions: No Reported Reaction Past Psychological History: Anxiety, Bipolar, Depression, Schizophrenia Smoking Status: Former smoker Past Alcohol Use History: None Reported Past Drug Use History: None Reported - Past Family History Father History Unknown: Yes Family Medical History: Myocardial Infarction ([place]) Additional Family Medical History / Comment(s): passed of [place] at 71 Mother History Unknown: Yes Family Medical History: Diabetes Mellitus Sister(s) History Unknown: Yes Family Medical History: COPD, Myocardial Infarction ([place]) Additional Family Medical History / Comment(s): fatal [place] at 50 General Exam Limitations: no limitations General appearance: alert, in no apparent distress Head exam: Present: atraumatic, normocephalic, normal inspection Respiratory exam: Present: normal lung sounds bilaterally. Absent: respiratory distress, wheezes, rales, rhonchi, stridor Cardiovascular Exam: Present: regular rate, normal rhythm, normal heart sounds. Absent: systolic murmur, diastolic murmur, rubs, gallop, clicks GI/Abdominal exam: Present: soft, normal bowel sounds. Absent: distended, tenderness, guarding, rebound, rigid Neurological exam: Present: alert, oriented X3, CN II-XII intact Psychiatric exam: Present: normal affect, normal mood Skin exam: Present: warm, dry, intact, normal color. Absent: rash Course Vital Signs 08/02/24 08/02/24 08/02/24 11:35 12:05 13:54 Temperature 97.8 F 98.0 F Pulse Rate 82 82 80 Respiratory 18 16 16 Rate Blood Pressure 112/67 116/59 122/69 O2 Sat by Pulse 96 96 96 Oximetry Medical Decision Making - Medical Decision Making This is a 58 year old female who presents to the emergency department for gauri. Was pt. sent in by a medical professional or institution? @ -Her PCP Did you speak to anyone other than the patient for history? @ -No Did you review nursing and triage notes? @ -Yes, and I agree, it is accurate with regards to the patient's symptoms. Were old charts reviewed? @ -No Differential Diagnosis? @ -Differential Dizziness: Benign paroxysmal positional Vertigo, Meniere's disease, otitis media, acoustic neuroma, vertebrobasilar insufficiency, cerebellar stroke, encephalitis, hypovolemic, arrhythmia, coronary artery syndrome, anemia, this is not meant to be an all-inclusive list EKG interpreted by me (3pts min.)? @ -EKG interpreted by me demonstrating the following: Sinus rhythm. Ventricular rate 75 bpm, WI interval 195 ms, QRS duration 96 ms, QTc 425 ms. X-rays interpreted by me (1pt min.)? @ -Not obtained CT interpreted by me (1pt min.)? @ -Not obtained U/S interpreted by me (1pt. min.)? @ -Not obtained What testing was considered but not performed? (CT, X-rays, U/S, labs)? Why? @ -None What meds were considered but not given? Why? @ -None Did you discuss the management of the patient with other professionals? @ -No Did you reconcile home meds? @ -No Was smoking cessation discussed for >3mins.? @ -No Was critical care preformed (if so, how long)? @ -No Were there social determinants of health that impacted care today? How? (Homelessness, low income, unemployed, alcoholism, drug addiction, transportation, low edu. Level, literacy, decrease access to med. care, retirement, rehab)? @ -No Was there de-escalation of care discussed even if they declined? (Discuss DNR or withdrawal of care, Hospice)? @ -No What co-morbidities impacted this encounter? (DM, HTN, Smoking, COPD, CAD, Cancer, CVA, Hep., AIDS, mental health diagnosis, sleep apnea, morbid obesity)? @ -DM, HTN Was patient admitted / discharged? @ -Discharged. Lab work demonstrates mildly decreased hemoglobin and is otherwise unremarkable. Urinalysis consistent with infection and urine was sent for culture. Patient reports her vaginal bleeding has improved dramatically she is just concerned that she does not feel well in general. We discussed that infection may be the cause of this. 2 g of Rocephin administered in the emergency department. Prescription for 7-day course of cefuroxime provided. Advised follow-up with her PCP for reevaluation. Patient discharged home in stable condition. Case discussed with ED attending Dr. Hawkins. Return precautions reviewed in depth, the patient is instructed to return to the emergency department with any new, worsening, or concerning symptoms. Patient verbalized understanding. Undiagnosed new problem with uncertain prognosis? @ -None Drug Therapy requiring intensive monitoring for toxicity (Heparin, Nitro, Insulin, Cardizem)? @ -None Were any procedures done? @ -None Diagnosis/symptom? @ -UTI, dizziness Acute, or Chronic, or Acute on Chronic? @ -Acute Uncomplicated (without systemic symptoms) or Complicated (systemic symptoms)? @ -Uncomplicated Side effects of treatment? @ -None Exacerbation, Progression, or Severe Exacerbation] @ -Not applicable Poses a threat to life or bodily function? @ -No - Lab Data Result diagrams: 08/02/24 12:01 08/02/24 12:01 Lab Results 08/02/24 08/02/24 08/02/24 Range/Units 12:01 12:01 12:01 WBC 9.0 (3.8-10.6) k/uL RBC 3.76 L (3.80-5.40) m/uL Hgb 11.0 L (11.4-16.0) gm/dL Hct 33.9 L (34.0-46.0) % MCV 90.4 (80.0-100.0) fL MCH 29.3 (25.0-35.0) pg MCHC 32.4 (31.0-37.0) g/dL RDW 13.6 (11.5-15.5) % Plt Count 297 (150-450) k/uL MPV 6.6 Neutrophils % 66 % Lymphocytes % 20 % Monocytes % 5 % Eosinophils % 7 % Basophils % 1 % Neutrophils # 5.9 (1.3-7.7) k/uL Lymphocytes # 1.8 (1.0-4.8) k/uL Monocytes # 0.4 (0-1.0) k/uL Eosinophils # 0.6 (0-0.7) k/uL Basophils # 0.1 (0-0.2) k/uL Sodium 135 L (137-145) mmol/L Potassium 5.0 (3.5-5.1) mmol/L Chloride 99 (98-107) mmol/L Carbon Dioxide 24 (22-30) mmol/L Anion Gap 12 mmol/L BUN 24 H (7-17) mg/dL Creatinine 0.55 (0.52-1.04) mg/dL Est GFR (CKD-EPI)AfAm >90 (>60 ml/min/1.73 sqM) Est GFR (CKD-EPI)NonAf >90 (>60 ml/min/1.73 sqM) Glucose 186 H (74-99) mg/dL Calcium 10.2 (8.4-10.2) mg/dL Phosphorus 4.5 (2.5-4.5) mg/dL Magnesium 1.7 (1.6-2.3) mg/dL Total Bilirubin 0.4 (0.2-1.3) mg/dL AST 55 H (14-36) U/L ALT 29 (4-34) U/L Alkaline Phosphatase 108 (38-126) U/L Troponin I (0.000-0.034) ng/mL Total Protein 7.3 (6.3-8.2) g/dL Albumin 4.6 (3.5-5.0) g/dL TSH (0.465-4.680) mIU/L Urine Color Colorless Urine Appearance Clear (Clear) Urine pH 5.5 (5.0-8.0) Ur Specific [place] 1.009 (1.001-1.035) Urine Protein Negative (Negative) Urine Glucose (UA) Negative (Negative) Urine Ketones Negative (Negative) Urine Blood Large H (Negative) Urine Nitrite Positive H (Negative) Urine Bilirubin Negative (Negative) Urine Urobilinogen <2.0 (<2.0) mg/dL Ur Leukocyte Esterase Moderate H (Negative) Urine RBC 72 H (0-5) /hpf Urine WBC 53 H (0-5) /hpf Urine Bacteria Many H (None) /hpf Urine Mucus Rare H (None) /hpf 08/02/24 08/02/24 Range/Units 12:01 12:01 WBC (3.8-10.6) k/uL RBC (3.80-5.40) m/uL Hgb (11.4-16.0) gm/dL Hct (34.0-46.0) % MCV (80.0-100.0) fL MCH (25.0-35.0) pg MCHC (31.0-37.0) g/dL RDW (11.5-15.5) % Plt Count (150-450) k/uL MPV Neutrophils % % Lymphocytes % % Monocytes % % Eosinophils % % Basophils % % Neutrophils # (1.3-7.7) k/uL Lymphocytes # (1.0-4.8) k/uL Monocytes # (0-1.0) k/uL Eosinophils # (0-0.7) k/uL Basophils # (0-0.2) k/uL Sodium (137-145) mmol/L Potassium (3.5-5.1) mmol/L Chloride (98-107) mmol/L Carbon Dioxide (22-30) mmol/L Anion Gap mmol/L BUN (7-17) mg/dL Creatinine (0.52-1.04) mg/dL Est GFR (CKD-EPI)AfAm (>60 ml/min/1.73 sqM) Est GFR (CKD-EPI)NonAf (>60 ml/min/1.73 sqM) Glucose (74-99) mg/dL Calcium (8.4-10.2) mg/dL Phosphorus (2.5-4.5) mg/dL Magnesium (1.6-2.3) mg/dL Total Bilirubin (0.2-1.3) mg/dL AST (14-36) U/L ALT (4-34) U/L Alkaline Phosphatase (38-126) U/L Troponin I <0.012 (0.000-0.034) ng/mL Total Protein (6.3-8.2) g/dL Albumin (3.5-5.0) g/dL TSH 0.948 (0.465-4.680) mIU/L Urine Color Urine Appearance (Clear) Urine pH (5.0-8.0) Ur Specific [place] (1.001-1.035) Urine Protein (Negative) Urine Glucose (UA) (Negative) Urine Ketones (Negative) Urine Blood (Negative) Urine Nitrite (Negative) Urine Bilirubin (Negative) Urine Urobilinogen (<2.0) mg/dL Ur Leukocyte Esterase (Negative) Urine RBC (0-5) /hpf Urine WBC (0-5) /hpf Urine Bacteria (None) /hpf Urine Mucus (None) /hpf Disposition Clinical Impression: UTI (urinary tract infection), Dizziness Disposition: HOME SELF-CARE Instructions (If sedation given, give patient instructions): Urinary Tract Infection in Women (ED) Additional Instructions: Return to the emergency department with any new, worsening, or concerning symptoms. Take the antibiotic as prescribed for 7 days. Follow up with your primary care provider in 1-2 days. Prescriptions: cefuroxime axetiL [Ceftin] 500 mg PO BID 7 Days #14 tab Is patient prescribed a controlled substance at d/c from ED?: No [facility]errals[facility] [Primary Care [facility]] - 1-2 days Time of Disposition: 13:34
[2024-08-02 12:37] LABS: Appearance,Urine Clear (Clear); Bacteria,Urine Many /hpf; Bilirubin,Urine Negative (Negative); Blood,Urine Large (Negative); Color,Urine Colorless; Glucose,Urine (UA) Negative (Negative); Ketones,Urine Negative (Negative); Leukocyte Esterase,Urine Moderate (Negative); Mucus,Urine Rare /hpf; Nitrite,Urine Positive (Negative); PH, Urine 5.5 (5.0-8.0); Protein,Urine Negative (Negative); RBC,Urine 72 /hpf (0-5); Specific Gravity,Urine 1.009 (1.001-1.035); Urobilinogen,Urine <2.0 mg/dL (<2.0); WBC,Urine 53 /hpf (0-5)
[2024-08-02] MEDS: cefTRIAXone IN SWFI 1,000 MG/10 ML SYRINGE IVP STA (13:46)
[2024-08-02 13:54] VITALS: BP 122/69; PULSE 80; TEMP 98
== END 2024-08-02 13:54 | disposition home or self-care (01) ==
LOC: EC 11:29
DX: N39.0 Urinary tract infection, site not specified (principal); R42 Dizziness and giddiness; Z87.891 Personal history of nicotine dependence; Z88.7 Allergy status to serum and vaccine; Z91.018 Allergy to other foods; Z88.8 Allergy status to other drugs, medicaments and biological substances
CPT/HCPCS: 36415; 93005; 80053; 84443; 83735; 84100; 84484; 85025; 81001; 87086; 99285; 96374; 96361 ×2; J0696

== ENCOUNTER → 2024-10-15 | Outpatient (CLI) | payer MEDICARE, OTHER ==
--- NOTE | 2024-10-15 12:36 | MR ---
EXAMINATION TYPE: MR pelvis wo/w con DATE OF EXAM: 10/15/2024 COMPARISON: CT abdomen and pelvis 07/26/2024, ultrasound transvaginal 07/18/2024 CLINICAL INDICATION:Female, 59 years old with history of N95.0 POSTMENOPAUSAL BLEEDING; [facility], TECHNIQUE: Triplane multisequence imaging was performed of the pelvis. Then the patient was given c ontrast/gadolinium, 8 cc of Gadobutrol and multiple post contrast sequences where obtained. FINDINGS: Reproductive: Vagina/cervix: There is a large T1/T2 hypointense lobulated mass within the vaginal canal abutting th e cervix. There is loss of fat plane with the posterior wall of the urinary bladder. This grossly miguel sures 5.7 x 4.5 x 6.0 cm in CC, AP, and TV dimensions (series 601, image 19). Demonstrates heterogeno us enhancement. There is preserved fat plane with the rectum. Uterus: The uterus is anteverted in position. Uterus measures 8.3 x 4.6 x 6.2 cm. The endometrium and junctional zone are within normal limits. No discrete uterine mass identified. Ovaries: Unremarkable appearance of the left ovary with follicular changes demonstrated. Small size r ight ovary which abuts the cecum which limits evaluation. Bladder: Unremarkable. Bowel: No evidence for obstruction. Redundant sigmoid colon. Peritoneum: A small amount of free fluid in the pelvis. No evidence of adenopathy. Vasculature: Unremarkable. Abdominal wall/soft tissues: Small fat filled epigastric ventral wall hernia. Musculoskeletal: Bone marrow signal is within normal signal intensity. Other: Partially visualized enlarged liver. Gallbladder surgically absent. IMPRESSION: Abnormal 6.0 cm heterogenous enhancing lobulated mass within the vaginal canal abutting the cervix. T here is loss of fat plane with abutment of the posterior wall of the urinary bladder. 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 Direct visualization is recomm ended. [facility], , 10/15/2024 12:33 PM
== END | disposition home or self-care (01) ==
LOC: RADMRIMAIN 09:24
PROVIDERS: ATTEND Obstetrics & Gynecology
DX: N85.8 Other specified noninflammatory disorders of uterus (principal); N95.0 Postmenopausal bleeding
CPT/HCPCS: 72197; A9585

== ENCOUNTER → 2025-01-06 | Outpatient (CLI) | payer MEDICARE, OTHER ==
--- NOTE | 2025-01-07 07:30 | CA ---
Transthoracic Echo Report Name: Neeru Nascimento Age: 59 Gender: F : 1965 Exam Date: 01/06/2025 17:31 Exam Location: [facility] Ht (in): 64 Wt (lb): 185 Ordering Physician: Pravin David MD Attending/Referring Phys: Pravin David MD Supervisor Wet Pour Nilam Sosa RDCS Procedure CPT: Indications: Z01.818 Chemo Cardiac Hx: Technical Quality: Good Contrast 1: Total Dose (mL): Contrast 2: Total Dose (mL): MEASUREMENTS (Male / Female) Normal Values 2D ECHO LV Diastolic Diameter PLAX 3.7 cm 4.2 - 5.9 / 3.9 - 5.3 cm LV Systolic Diameter PLAX 2.6 cm IVS Diastolic Thickness 1.2 cm 0.6 - 1.0 / 0.6 - 0.9 cm LVPW Diastolic Thickness 0.9 cm 0.6 - 1.0 / 0.6 - 0.9 cm LV Relative Wall Thickness 0.6 RV Internal Dim ED PLAX 3.0 cm LA Systolic Diameter LX 3.9 cm 3.0 - 4.0 / 2.7 - 3.8 cm LV Diastolic Volume MOD BP 121.5 cm??? 67 - 155 / 56 - 104 cm??? LV Systolic Volume MOD BP 44.8 cm??? - 58 / 19 - 49 cm??? LV Ejection Fraction MOD BP 63.2 % >= 55 % LV Cardiac Index MOD BP 3183.7 cm???/min???m??? LV Diastolic Volume MOD 4C 106.1 cm??? LV Systolic Volume MOD 4C 41.0 cm??? LV Ejection Fraction MOD 4C 61.3 % LV Cardiac Index MOD 4C 2697.1 cm???/min???m??? LV Diastolic Length 4C 8.4 cm LV Systolic Length 4C 6.6 cm LV Diastolic Volume MOD 2C 137.1 cm??? LV Systolic Volume MOD 2C 47.9 cm??? LV Ejection Fraction MOD 2C 65.1 % LV Cardiac Index MOD 2C 3701.4 cm???/min???m??? LV Diastolic Length 2C 8.2 cm LV Systolic Length 2C 6.5 cm LA Volume 79.4 cm??? 18 - 58 / 22 - 52 cm??? LA Volume Index 40.2 cm???/m??? 16 - 28 cm???/m??? M-MODE Aortic Root Diameter MM 3.1 cm AV Cusp Separation MM 1.8 cm DOPPLER AV Peak Velocity 188.7 cm/s AV Peak Gradient 14.2 mmHg MV Area PHT 3.4 cm??? Mitral E Point Velocity 95.1 cm/s Mitral A Point Velocity 83.2 cm/s Mitral E to A Ratio 1.1 MV Deceleration Time 223.2 ms FINDINGS Left Ventricle Left ventricular ejection fraction is estimated at 55-60 %.Normal left ventricular systolic function with no obvious regional wall motion abnormalities. Mildly increased left ventricular wall thickness. Average global longitudinal strain -17.8% Right Ventricle Normal right ventricular size. Unable to estimate the right ventricular systolic pressure. Right Atrium Normal right atrial size. No right atrial thrombus or mass seen. Left Atrium Severely increased left atrial volume. Mildly increased left atrial area. No left atrial thrombus or mass present. Mitral Valve Structurally normal mitral valve. No mitral stenosis. No evidence for mitral valve prolapse. Mild mitral regurgitation. Aortic Valve Trileaflet aortic valve. Thickened aortic valve without stenosis. No aortic regurgitation. Tricuspid Valve Structurally normal tricuspid valve. No tricuspid stenosis, regurgitation or prolapse. Pulmonic Valve Structurally normal pulmonic valve. Trace pulmonic regurgitation. Pericardium No pericardial effusion. Aorta Normal size aortic root and proximal ascending aorta. CONCLUSIONS 1. Normal left ventricular size and systolic function with average global longitudinal strain of -17.8% 2. Mild mitral regurgitation 3. No pericardial effusion Previewed by: Dr. Tyler Ramirez MD (Electronically Signed) Final Date: 07 January 2025 07:30
== END | disposition home or self-care (01) ==
LOC: RADECHMAIN 17:29
PROVIDERS: ATTEND Internal Medicine Hematology & Oncology
DX: Z01.818 Encounter for other preprocedural examination (principal); I34.0 Nonrheumatic mitral (valve) insufficiency
CPT/HCPCS: 93306

== ENCOUNTER → 2025-01-13 | Day surgery (SDC) | payer MEDICARE, OTHER ==
[~2025-01-13] MED LIST: HYDROmorphone 0.5 MG/0.5 ML SYRINGE IVP PRN; LACTATED RINGERS 1,000 ML IV SCH; LIDOCAINE 1% INJ 10MG/ML (20 ML MDV) ONE; MIDAZOLAM 2 MG/2 ML VIAL ONE; PROPOFOL 10 MG/ML 20 ML VIAL IV ONE; Pre Op ABX Message 1 EACH MISC MISCELLANE ONE; fentaNYL (PF) 50 MCG/ML 2 ML AMP ONE
[2025-01-13] MEDS: IV FLUID CONTINUATION 1,000 ML IV ONE (10:17)
[2025-01-13 10:38] LABS: Glucose,Whole Blood 248 mg/dL (70-110)
[2025-01-13] MEDS: INSULIN LISPRO (HumaLOG) 100 UNIT/ML 10 mL VL SQ SCH (10:38)
[2025-01-13] MEDS: ONDANSETRON 4 MG/2 ML VIAL IVP ONE (10:41)
[2025-01-13] MEDS: DEXAMETHASONE SOD PHOSPHATE 4 MG/ML 1 ML VIAL IV ONE (10:42)
[2025-01-13] MEDS: HEPARIN SODIUM,PORCINE 5,000 UNIT/ML 1 ML VIAL SQ PRN (10:50)
[2025-01-13] MEDS: ACETAMINOPHEN TAB 500 MG TAB PO PRN (10:51)
[2025-01-13 11:08] LABS: Glucose,Whole Blood 235 mg/dL (70-110)
--- NOTE | 2025-01-13 11:56 | P.GSHP ---
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 Patient presents today for Port-A-Cath placement. Past Medical History Past Medical History: Diabetes Mellitus, Fibromyalgia, GERD/Reflux, Hyperlipidemia, Hypertension, Musculoskeletal Disorder, Seizure Disorder, Skin Disorder, Sleep Apnea/CPAP/BIPAP, Thyroid Disorder Additional Past Medical History / Comment(s): Diabetes Type 2, Borderline personality, Benign liver cyst, abnormal vaginal bleeding since 2023, no use of CPAP, recent dx. of uterine cancer, last seizure several years ago(pseudo seizures), "yeast" under breast, uses nystatin for History of Any Multi-Drug Resistant Organisms: None Reported Past Surgical History: Cholecystectomy Past Anesthesia/Blood Transfusion Reactions: No Reported Reaction Smoking Status: Former smoker - Past Family History Father History Unknown: Yes Family Medical History: Myocardial Infarction ([place]) Additional Family Medical History / Comment(s): passed of [place] at 71 Mother History Unknown: Yes Family Medical History: Diabetes Mellitus Sister(s) History Unknown: Yes Family Medical History: COPD, Myocardial Infarction ([place]) Additional Family Medical History / Comment(s): fatal [place] at 50 Medications and Allergies Home Medications Medication Instructions Recorded Confirmed Type metFORMIN HCL [Glucophage] 1,000 mg PO BID 09/29/15 01/13/25 History Oxybutynin Chloride 5 mg PO BID 03/16/18 01/13/25 History Levothyroxine Sodium [Synthroid] 50 mcg PO DAILY 05/30/19 01/13/25 History Losartan Potassium [Cozaar] 100 mg PO DAILY 03/27/20 01/13/25 History Propranolol [Inderal] 40 mg PO BID 03/27/20 01/13/25 History gemfibroziL [Lopid] 600 mg PO BID 03/27/20 01/13/25 History Baclofen 10 mg PO HS 01/01/24 01/13/25 History Dulaglutide [Trulicity] 3 mg SQ FR 01/01/24 01/10/25 History Insulin Glargine,Hum.rec.anlog 70 units SQ HS 01/01/24 01/13/25 History [Toujeo Solostar] Loratadine [Claritin] 10 mg PO DAILY 01/01/24 01/13/25 History Atorvastatin [Lipitor] 20 mg PO HS #0 tab 01/08/24 01/13/25 Rx Yeoman Carbonate 600 mg PO HS 30 Days #30 cap 01/08/24 01/13/25 Rx lamoTRIgine [LaMICtal] 100 mg PO BID 30 Days #60 tab 01/08/24 01/13/25 Rx rOPINIRole HCL [Requip] 1 mg PO TID 30 Days #90 tab 01/08/24 01/13/25 Rx ARIPiprazole [Abilify] 5 mg PO HS 01/10/25 01/13/25 History FLUoxetine HCL [PROzac] 40 mg PO DAILY 01/10/25 01/13/25 History Nystatin 100,000Unit/gm Cream 1 applic TOPICAL DIRECTED PRN 01/10/25 01/10/25 History [Mycostatin Cream] Omeprazole [PriLOSEC] 20 mg PO AC-BRKFST 01/10/25 01/13/25 History amLODIPine [Norvasc] 2.5 mg PO DAILY 01/10/25 01/13/25 History hydrOXYzine pamoate [Vistaril] 25 mg PO TID 01/10/25 01/13/25 History hydrOXYzine pamoate [Vistaril] 50 mg PO HS 01/10/25 01/13/25 History Allergies Allergy/AdvReac Type Severity Reaction Status Date / Time coconut oil Allergy Unknown Anaphylaxis Verified 01/10/25 13:03 pineapple [Pineapple] Allergy Unknown Anaphylaxis Verified 01/10/25 13:03 licorice Allergy Anaphylaxis Verified 01/10/25 13:03 Influenza Virus Vaccines AdvReac Nausea & Verified 01/10/25 13:03 Vomiting Surgical - Exam Vital Signs Temp Pulse Resp BP Pulse Ox 96.9 F L 91 16 142/71 98 01/13/25 10:12 01/13/25 10:12 01/13/25 10:12 01/13/25 10:12 01/13/25 10:12 - General well developed, well nourished, no distress - Eyes PERRL - ENT normal pinna - Neck no masses - Respiratory normal expansion - Cardiovascular Rhythm: regular - Abdomen Abdomen: soft, non tender Results - Labs Abnormal Lab Results - Last 24 Hours (Table) 04/28/25 04/28/25 Range/Units 10:25 11:07 POC Glucose (mg/dL) 248 H 235 H (70-110) mg/dL Assessment and Plan Assessment: History of sarcoma. Will perform Port-A-Cath placement.
[2025-01-13] MEDS: ceFAZolin 2 GM in DEXTROSE 5% IN WATER 50 ML IVPB ONE (12:04)
[2025-01-13] MEDS: BUPIVACAINE (PF) 0.25% 30 ML VIAL SQ ONE ×2 (12:23)
[2025-01-13] MEDS: IOPAMIDOL-370 100ML BTL MISCELLANE ONE (12:26)
--- NOTE | 2025-01-13 12:48 | P.OP ---
Date of Procedure: 01/13/25 Preoperative Diagnosis: History of sarcoma Postoperative Diagnosis: History of sarcoma Procedure(s) Performed: Right subclavian Port-A-Cath Anesthesia: LEEANNA Surgeon: Yasir Angela Estimated Blood Loss (ml): 5 Pathology: none sent Condition: stable Disposition: PACU Description of Procedure: The patient was placed on the operating table in the supine position. The patient received IV sedation. The patient's chest was prepped and draped in the usual sterile fashion. A roll had been placed between the shoulder blades in a longitudinal fashion. After prepping and draping the skin was anesthetized 1% local Xylocaine. And then using the Seldinger technique the subclavian vein was cannulated. A wire was placed into the vein and fluoroscopy position the wire at the atrial caval junction. Next the dilator sheath was placed over top the wire and the wire was withdrawn. The catheter was positioned at the atriocaval position. The catheter was placed through the sheath after the dilator was withdrawn. The sheath was then withdrawn. Position of the catheter was conf irmed with fluoroscopy. The Port-A-Cath was connected to the catheter. The Port-A-Cath was flushed with saline and then heparinized saline. The skin was closed interrupted 3-0 Monocryl suture. Dermabond was applied. Patient tolerated procedure well and was sent to recovery room stable condition.
[2025-01-13 12:57] VITALS: TEMP 97
--- NOTE | 2025-01-13 13:17 | FL ---
EXAMINATION TYPE: FL guided central line placemt DATE OF EXAM: 01/13/2025 FLUOROSCOPY DAP 0.3114 FL 5.4 SEC 1 image is provided. [facility], , 01/13/2025 1:15 PM
--- NOTE | 2025-01-13 14:15 | XR ---
EXAMINATION TYPE: XR chest 1V portable DATE OF EXAM: 01/13/2025 1:30 PM COMPARISON: 06/03/2018 CLINICAL INDICATION: Female, 59 years old with history of Line placement, , FINDINGS: Right anterior chest wall injection port with subclavian access and catheter tip at the mid SVC level . Heart upper limits of normal in size. Interstitial prominence without consolidation or pleural effu meri. IMPRESSION: 1. Right anterior chest wall injection port with subclavian access and catheter tip at the mid SVC le jyoti. No appreciable pneumothorax. 2. Mild increased interstitial density could reflect bronchitis or asthma. [facility], , 01/13/2025 2:12 PM
[2025-01-13 14:40] VITALS: BP 126/82; PULSE 86; RESP 14
== END | disposition home or self-care (01) ==
LOC: OR 09:48
PROVIDERS: ATTEND Surgery
DX: C49.0 Malignant neoplasm of connective and soft tissue of head, face and neck (principal); I10 Essential (primary) hypertension; E11.9 Type 2 diabetes mellitus without complications; E78.5 Hyperlipidemia, unspecified; G47.33 Obstructive sleep apnea (adult) (pediatric); E03.9 Hypothyroidism, unspecified; M79.7 Fibromyalgia; G40.909 Epilepsy, unspecified, not intractable, without status epilepticus; K21.9 Gastro-esophageal reflux disease without esophagitis; F60.3 Borderline personality disorder; F41.9 Anxiety disorder, unspecified; F32.A Depression, unspecified; F20.9 Schizophrenia, unspecified; Z79.84 Long term (current) use of oral hypoglycemic drugs; Z79.890 Hormone replacement therapy; Z79.85 Long-term (current) use of injectable non-insulin antidiabetic drugs; Z79.4 Long term (current) use of insulin; Z79.899 Other long term (current) drug therapy; Z87.891 Personal history of nicotine dependence; Z88.7 Allergy status to serum and vaccine; Z91.018 Allergy to other foods
CPT/HCPCS: 36561; 84703; 77001; 71045; J1644; J1100; J0690; J2405; J0665; 81025

== ENCOUNTER 2025-03-05 20:59 | Emergency (ER) | payer MEDICARE, OTHER ==
--- NOTE | 2025-03-05 21:35 | ED ---
General Adult HPI - General Chief complaint: Urogenital Stated complaint: Vaginal bleeding Time Seen by Provider: 03/05/25 21:03 Source: patient, EMS Mode of arrival: EMS - History of Present Illness Initial comments: Patient is a 59-year-old female past medical history of uterine cancer presenting today for vaginal bleeding. Patient states she has had bleeding for 3 days. On Monday she had some heavy vaginal bleeding that lightened up to one of her normal periods and then this evening around 7 PM she had worsening of her bleeding, having gone through 2 pull ups in the course of 1 hour. Patient is not on blood thinners. She had a blood transfusion 2 weeks ago. States she did pass a few clots in the shower this evening, one of them was fist sized. Endorses lower abdominal cramping. Typically takes hydromorphone at home for pain. Is currently undergoing chemotherapy with Dr. Costello and hopes that the mass will become controlled to the point of being able to be resected. Patient currently endorses lightheadedness and generalized weakness. She denies shortn ess of breath, chest pain, difficulty in breathing, additional abdominal pain. Did have one episode nonbloody nonbilious emesis this evening. Denies fevers or chills. Denies vaginal discharge. Denies dysuria or hematuria. Endorses low back discomfort. Denies numbness. - Related Data Home Medications Medication Instructions Recorded Confirmed metFORMIN HCL [Glucophage] 1,000 mg PO BID 09/29/15 02/24/25 Oxybutynin Chloride 5 mg PO BID 03/16/18 02/24/25 Levothyroxine Sodium [Synthroid] 50 mcg PO DAILY 05/30/19 02/24/25 Losartan Potassium [Cozaar] 100 mg PO DAILY 03/27/20 02/24/25 Propranolol [Inderal] 40 mg PO BID 03/27/20 02/24/25 gemfibroziL [Lopid] 600 mg PO BID 03/27/20 02/24/25 Baclofen 10 mg PO HS 01/01/24 02/24/25 Dulaglutide [Trulicity] 3 mg SQ FR 01/01/24 02/24/25 Insulin Glargine,Hum.rec.anlog 70 units SQ HS 01/01/24 02/24/25 [Dutchupricilla Haddadostar] Loratadine [Claritin] 10 mg PO DAILY 01/01/24 02/24/25 ARIPiprazole [Abilify] 5 mg PO HS 01/10/25 02/24/25 FLUoxetine HCL [PROzac] 40 mg PO DAILY 01/10/25 02/24/25 Nystatin 100,000Unit/gm Cream 1 applic TOPICAL DIRECTED PRN 01/10/25 02/24/25 [Mycostatin Cream] Omeprazole [PriLOSEC] 20 mg PO AC-BRKFST 01/10/25 02/24/25 hydrOXYzine pamoate [Vistaril] 25 mg PO TID 01/10/25 02/24/25 hydrOXYzine pamoate [Vistaril] 50 mg PO HS 01/10/25 02/24/25 HYDROcodone/APAP 5-325MG [[place] 1 tab PO Q6HR PRN 02/24/25 02/24/25 5-325] Previous Rx's Medication Instructions Recorded Atorvastatin [Lipitor] 20 mg PO HS #0 tab 01/08/24 [place] Carbonate 600 mg PO HS 30 Days #30 cap 01/08/24 lamoTRIgine [LaMICtal] 100 mg PO BID 30 Days #60 tab 01/08/24 rOPINIRole HCL [Requip] 1 mg PO TID 30 Days #90 tab 01/08/24 Allergies Allergy/AdvReac Type Severity Reaction Status Date / Time coconut oil Allergy Unknown Anaphylaxis Verified 03/05/25 21:08 pineapple [Pineapple] Allergy Unknown Anaphylaxis Verified 03/05/25 21:08 licorice Allergy Anaphylaxis Verified 03/05/25 21:08 Influenza Virus Vaccines AdvReac Nausea & Verified 03/05/25 21:08 Vomiting Review of Systems ROS Statement: Those systems with pertinent positive or pertinent negative responses have been documented in the HPI. ROS Other: All systems not noted in ROS Statement are negative. Past Medical History Past Medical History: Diabetes Mellitus, Fibromyalgia, GERD/Reflux, Hyperlipidemia, Hypertension, Musculoskeletal Disorder, Seizure Disorder, Skin Disorder, Sleep Apnea/CPAP/BIPAP, Thyroid Disorder Additional Past Medical History / Comment(s): Diabetes Type 2, Borderline p ersonality, Benign liver cyst, abnormal vaginal bleeding since 2023, no use of CPAP, recent dx. of uterine cancer, last seizure several years ago(pseudo seizures), "yeast" under breast, uses nystatin for History of Any Multi-Drug Resistant Organisms: None Reported Past Surgical History: Cholecystectomy Additional Past Surgical History / Comment(s): chemo port R chest Past Anesthesia/Blood Transfusion Reactions: No Reported Reaction Past Psychological History: Anxiety, Bipolar, Depression, Schizophrenia Smoking Status: Former smoker Past Alcohol Use History: None Reported Past Drug Use History: None Reported - Past Family History Father History Unknown: Yes Family Medical History: Myocardial Infarction ([place]) Additional Family Medical History / Comment(s): passed of [place] at 71 Mother History Unknown: Yes Family Medical History: Diabetes Mellitus Sister(s) History Unknown: Yes Family Medical History: COPD, Myocardial Infarction ([place]) Additional Family Medical History / Comment(s): fatal [place] at 50 General Exam - General Exam Comments Initial Comments: PE: CONSTITUTIONAL: [no apparent distress, ill-appearing, nontoxic, generalized pallor SKIN: Warm, dry, no jaundice, hives or petechiae EYES: Pupils are equally round, extraocular movements intact without nystagmus, pale conjunctiva, non-icteric sclera HENT: Normocephalic, atraumatic, moist mucus membranes, oropharynx clear without exudates NECK: , Full range of motion, normal appearance PULMONARY: Clear to auscultation without wheezes, rhonchi, or rales, normal excursion, no accessory muscle use and no stridor CARDIOVASCULAR: Regular rate, rhythm, normal S1 and S2. No appreciated murmurs, rubs or gallops. Strong radial pulses with intact distal perfusion. No lower extremity edema GASTROINTESTINAL: Soft, active bowel sounds throughout, non-tender, non- distended, no palpable masses, no rebound or guarding. No hepatosplenomegaly, no CVA tenderness GENITOURINARY: /pelvic exam was performed with Sonya RN at bedside as boiler tester, no visible masses though exam was limited due to dark red blood filling speculum on exam. No clots visible. MUSCULOSKELETAL: Extremities have no gross deformity, no edema, redness, or swelling. NEUROLOGIC:_a/o x 3, GCS 15, normal mentation and speech. Moves all extremities x 4 without motor or sensory deficit PSYCHIATRIC:_normal mood and affect, thought process is clear and linear Course Vital Signs 06/18/25 06/18/25 06/18/25 21:05 22:13 23:05 Temperature 98.9 F 98.3 F Pulse Rate 83 85 82 Respiratory 18 18 19 Rate Blood Pressure 96/55 99/54 112/65 O2 Sat by Pulse 92 L 97 95 Oximetry 03/05/25 03/05/25 03/06/25 23:28 23:50 00:10 Temperature 98.8 F 98.9 F 98.7 F Pulse Rate 82 83 79 Respiratory 20 19 19 Rate Blood Pressure 114/59 107/60 110/67 O2 Sat by Pulse 94 L 92 L 95 Oximetry 03/06/25 03/06/25 01:56 02:58 Temperature 98.6 F 97.8 F Pulse Rate 80 81 Respiratory 19 18 Rate Blood Pressure 119/69 126/78 O2 Sat by Pulse 95 97 Oximetry - Reevaluation(s) Reevaluation #1: Hemoglobin 6.7, previously on 08/02/2024 was 11.0. Patient's vital signs remain overall stable though BP is still borderline. Heart rate 85. Blood pressure 99/54. 1 unit PRBC ordered 03/05/25 22:12 Medical Decision Making - Medical Decision Making Was pt. sent in by a medical professional or institution (, PA, RESIDENTIAL INSURANCE INSPECTOR, urgent care, hospital, or custodial...) When possible be specific @ -No Did you speak to anyone other than the patient for history (EMS, parent, family, police, friend...)? What history was obtained from this source @ -No Did you review nursing and triage notes (agree or disagree)? Why? @ -I reviewed and agree with nursing and triage notes Were old charts reviewed (outside hosp., previous admission, EMS record, old EKG, old radiological studies, urgent care reports/EKG's, custodial records)? Report findings @ -Medical records reviewed reviewed pelvis MRI from 10/15/2024, was significant for a 6 cm heterogenous enhancing lobulated mass within the vaginal canal abutting the cervix, loss of flat pain with abutment of the posterior wall of the urinary bladder, findings are highly concerning for primary vaginal malignancy until proven otherwise, direct visualization was recommended Differential Diagnosis (chest pain, altered mental status, abdominal pain women, abdominal pain men, vaginal bleeding, weakness, fever, dyspnea, syncope, he adache, dizziness, GI bleed, back pain, seizure, CVA, palpatations, mental health, musculoskeletal)? @Differential Vaginal Bleeding: uterine rupture, dysfunctional uterine bleeding, uterine fibroids, bleeding uterine mass, this is not meant to be an all-inclusive list. EKG interpreted by me (3pts min.). @ -As above X-rays interpreted by me (1pt min.). @ -None done CT interpreted by me (1pt min.). @ -None done U/S interpreted by me (1pt. min.). @ Personally reviewed US pelvis, notable for mass like lesion agree with radiologist interpretation What testing was considered but not performed or refused? (CT, X-rays, U/S, labs)? Why? @ -None What meds were considered but not given or refused? Why? @ -None Did you discuss the management of the patient with other professionals (professionals i.e. , PA, RESIDENTIAL INSURANCE INSPECTOR, lab, RT, psych nurse, web content & social media manager, electronic console display operator, teacher, electrical engineering drafting officer, comp field case manager)? Give summary @Yes see below Was smoking cessation discussed for >3mins.? @ -No Was critical care preformed (if so, how long)? @ -Yes 35 minutes Were there social determinants of health that impacted care today? How? (Homelessness, low income, unemployed, alcoholism, drug addiction, transportati on, low edu. Level, literacy, decrease access to med. care, prison, rehab)? @ -No Was there de-escalation of care discussed even if they declined (Discuss DNR or withdrawal of care, Hospice)? @ -No What co-morbidities impacted this encounter? (DM, HTN, Smoking, COPD, CAD, Cancer, CVA, ARF, Chemo, Hep., AIDS, mental health diagnosis, sleep apnea, morbid obesity)? @Uterine cancer Was patient admitted / discharged? Hospital course, mention meds given and route, prescriptions, significant lab abnormalities, going to OR and other pertinent info. @ Discharged- This is a pleasant 59-year-old female presenting today for 3 days of vaginal bleeding, worse this evening.On my assessment, vital signs are overall stable, she is not tachycardic, blood pressures 96/55 however a MAP of 70, pulse ox 92% on room air. She does not appear to be in any distress. She is ill-appearing with generalized pallor, pale conjunctiva. Pelvic exam was performed, dark red blood had soaked patient's briefs that she had put on prior to arrival in the ER, no visible masses on pelvic exam, approximately 1 tablespoon of dark red blood did not fill speculum. Discussed with patient plan for transvaginal ultrasound, basic labs, pain control. Hemoglobin 6.7. Ordered 1 unit PRBCs. On reassessment blood pressure has stabilized, blood pressure 112/65. Patient did go to use the bathroom and there is only a scant amount of blood in her briefs. Currently pending ultrasound. Ultrasound read as abnormal vascular mass lesion noted in the cervix extending into the vaginal fornix, again identified with more prominent internal vascular flow, now measuring 6.1 x 4.1 x 4 cm from 4.2 x 3.1 x 4 cm previously. Case discussed with Dr. Vang, OB-Equipment Technician, states if bleeding has slowed/stopped, pt could be discharged for outpatient follow up. I did consider keeping patient for observation due to amount of bleeding ship captain. I discussed ultrasound findings, worsening mass with increased vascularity, with the patient as well as OB recommendations. Patient has not had any further bleeding since being in the ER. Her vital signs are stable. She is completing 1 unit of PRBCs. Her pain has improved. She is no longer dizzy. I discussed with the patient the option of being admitted for observation versus discharge home with close follow-up. The patient states she has chemotherapy in the morning and would prefer to be discharged home. I feel this is reasonable given no further bleeding and stable vital signs. Patient states she will have her labs drawn at chemotherapy. Urinalysis resulted with once, cell, rare bacteria, large amount of blood which I suspect is from vaginal bleeding, Negative nitrites, trace leukocyte esterase, 156 red cells 6 white blood cells. Given the amount of blood in her urine, trace leukocyte esterase no dysuria or urinary frequency I suspect this is a contaminated specimen. Will be sent for culture. Plan for discharge. In my medical judgment there is currently no evidence of an immediate life- threatening or surgical condition. Discharge is therefore indicated at this time. Discharge treatment instructions, follow up instructions, and appropriate emergency department return precautions were discussed with the patient and/or medical decision maker. Patient and/or medical decision maker expressed understanding of and agreed with the treatment plan, follow up instructions, and emergency department return precaution. All patient's and/or medical decision maker's questions were answered. The patient was instructed to return to the ED for any changes in symptoms, persistent symptoms, inability to obtain proper follow-up or for any further concerns. Patient received verbal and written instructions for this condition. Undiagnosed new problem with uncertain prognosis? @ -No Drug Therapy requiring intensive monitoring for toxicity (Heparin, Nitro, Insulin, Cardizem)? @ -No Were any procedures done? @ -No Diagnosis/symptom? @Abnormal uterine bleeding, symptomatic anemia Acute, or Chronic, or Acute on Chronic? @acute Uncomplicated (without systemic symptoms) or Complicated (systemic symptoms)? @ complicated Side effects of treatment? @ -No Exacerbation, Progression, or Severe Exacerbation? @ -No Poses a threat to life or bodily function? How? (Chest pain, [place], [place], pneumonia, PE, COPD, DKA, ARF, appy, cholecystitis, CVA, Diverticulitis, Homicidal, Suicidal, threat to staff... and all critical care pts) @ -No not at time of discharge - Lab Data Result diagrams: 03/05/25 21:27 03/05/25 21:27 Lab Results 03/05/25 03/05/25 03/05/25 Range/Units 21:20 21:27 21:27 WBC 10.39 H (4.50-10.00) 10*3/uL RBC 2.63 L (4.10-5.20) 10*6/uL Hgb 6.7 L* (12.0-15.0) g/dL Hct 21.8 L (37.2-46.3) % MCV 82.9 (80.0-97.0) fL MCH 25.5 L (27.0-32.0) pg MCHC 30.7 L (32.0-37.0) g/dL Plt Count 335 (140-440) 10*3/uL MPV 8.6 L (9.5-12.2) fL Immature Gran % (Auto) 1.1 % Neutrophils % 66.4 % Lymphocytes % 18.7 % Monocytes % 11.5 % Eosinophils % 1.3 % Basophils % 1.0 % Immature Gran # 0.11 H (0.00-0.04) 10*3/uL Neutrophils # 6.91 (1.80-7.70) 10*3/uL Lymphocytes # 1.94 (0.90-5.00) 10*3/uL Monocytes # 1.19 H (0.20-1.00) 10*3/uL Eosinophils # 0.14 (0.04-0.35) 10*3/uL Basophils # 0.10 (0.00-0.10) 10*3/uL Manual Slide Review Performed Anisocytosis (manual) Present PT 11.4 (10.0-12.5) sec INR 1.0 (<1.2) APTT 19.4 L (22.0-30.0) sec Sodium (137-145) mmol/L Potassium (3.5-5.1) mmol/L Chloride (98-107) mmol/L Carbon Dioxide (22-30) mmol/L Anion Gap mmol/L BUN (7-17) mg/dL Creatinine (0.52-1.04) mg/dL Est GFR (CKD-EPI)AfAm (>60 ml/min/1.73 sqM) Est GFR (CKD-EPI)NonAf (>60 ml/min/1.73 sqM) Glucose (74-99) mg/dL Lactic Ac Sepsis Rflx Plasma Lactic Acid Tristan (0.7-2.0) mmol/L Calcium (8.4-10.2) mg/dL Total Bilirubin (0.2-1.3) mg/dL AST (14-36) U/L ALT (4-34) U/L Alkaline Phosphatase (38-126) U/L Total Protein (6.3-8.2) g/dL Albumin (3.5-5.0) g/dL Urine Color Urine Appearance (Clear) Urine pH (5.0-8.0) Ur Specific [place] (1.001-1.035) Urine Protein (Negative) Urine Glucose (UA) (Negative) Urine Ketones (Negative) Urine Blood (Negative) Urine Nitrite (Negative) Urine Bilirubin (Negative) Urine Urobilinogen (<2.0) mg/dL Ur Leukocyte Esterase (Negative) Urine RBC (0-5) /hpf Urine WBC (0-5) /hpf Ur Squamous Epith Cells (0-4) /hpf Urine Bacteria (None) /hpf Hyaline Casts (0-2) /lpf Urine Mucus (None) /hpf Blood Type O Positive Blood Type Recheck O Pos Bld Type Recheck Status No Antibody Screen NEGATIVE Crossmatch See Detail Spec Expiration Date 03/08/2025 - 231903/05/25 03/05/25 03/05/25 Range/Units 21:27 21:44 22:26 WBC (4.50-10.00) 10*3/uL RBC (4.10-5.20) 10*6/uL Hgb (12.0-15.0) g/dL Hct (37.2-46.3) % MCV (80.0-97.0) fL MCH (27.0-32.0) pg MCHC (32.0-37.0) g/dL Plt Count (140-440) 10*3/uL MPV (9.5-12.2) fL Immature Gran % (Auto) % Neutrophils % % Lymphocytes % % Monocytes % % Eosinophils % % Basophils % % Immature Gran # (0.00-0.04) 10*3/uL Neutrophils # (1.80-7.70) 10*3/uL Lymphocytes # (0.90-5.00) 10*3/uL Monocytes # (0.20-1.00) 10*3/uL Eosinophils # (0.04-0.35) 10*3/uL Basophils # (0.00-0.10) 10*3/uL Manual Slide Review Anisocytosis (manual) PT (10.0-12.5) sec INR (<1.2) APTT (22.0-30.0) sec Sodium 136 L (137-145) mmol/L Potassium 4.4 (3.5-5.1) mmol/L Chloride 103 (98-107) mmol/L Carbon Dioxide 22 (22-30) mmol/L Anion Gap 11 mmol/L BUN 12 (7-17) mg/dL Creatinine 0.64 (0.52-1.04) mg/dL Est GFR (CKD-EPI)AfAm >90 (>60 ml/min/1.73 sqM) Est GFR (CKD-EPI)NonAf >90 (>60 ml/min/1.73 sqM) Glucose 253 H (74-99) mg/dL Lactic Ac Sepsis Rflx Y Plasma Lactic Acid Tristan 2.1 H* (0.7-2.0) mmol/L Calcium 9.5 (8.4-10.2) mg/dL Total Bilirubin 0.5 (0.2-1.3) mg/dL AST 32 (14-36) U/L ALT 15 (4-34) U/L Alkaline Phosphatase 109 (38-126) U/L Total Protein 5.8 L (6.3-8.2) g/dL Albumin 3.7 (3.5-5.0) g/dL Urine Color Urine Appearance (Clear) Urine pH (5.0-8.0) Ur Specific [place] (1.001-1.035) Urine Protein (Negative) Urine Glucose (UA) (Negative) Urine Ketones (Negative) Urine Blood (Negative) Urine Nitrite (Negative) Urine Bilirubin (Negative) Urine Urobilinogen (<2.0) mg/dL Ur Leukocyte Esterase (Negative) Urine RBC (0-5) /hpf Urine WBC (0-5) /hpf Ur Squamous Epith Cells (0-4) /hpf Urine Bacteria (None) /hpf Hyaline Casts (0-2) /lpf Urine Mucus (None) /hpf Blood Type Blood Type Recheck Bld Type Recheck Status Antibody Screen Crossmatch Spec Expiration Date 03/06/25 Range/Units 02:00 WBC (4.50-10.00) 10*3/uL RBC (4.10-5.20) 10*6/uL Hgb (12.0-15.0) g/dL Hct (37.2-46.3) % MCV (80.0-97.0) fL MCH (27.0-32.0) pg MCHC (32.0-37.0) g/dL Plt Count (140-440) 10*3/uL MPV (9.5-12.2) fL Immature Gran % (Auto) % Neutrophils % % Lymphocytes % % Monocytes % % Eosinophils % % Basophils % % Immature Gran # (0.00-0.04) 10*3/uL Neutrophils # (1.80-7.70) 10*3/uL Lymphocytes # (0.90-5.00) 10*3/uL Monocytes # (0.20-1.00) 10*3/uL Eosinophils # (0.04-0.35) 10*3/uL Basophils # (0.00-0.10) 10*3/uL Manual Slide Review Anisocytosis (manual) PT (10.0-12.5) sec INR (<1.2) APTT (22.0-30.0) sec Sodium (137-145) mmol/L Potassium (3.5-5.1) mmol/L Chloride (98-107) mmol/L Carbon Dioxide (22-30) mmol/L Anion Gap mmol/L BUN (7-17) mg/dL Creatinine (0.52-1.04) mg/dL Est GFR (CKD-EPI)AfAm (>60 ml/min/1.73 sqM) Est GFR (CKD-EPI)NonAf (>60 ml/min/1.73 sqM) Glucose (74-99) mg/dL Lactic Ac Sepsis Rflx Plasma Lactic Acid Tristan (0.7-2.0) mmol/L Calcium (8.4-10.2) mg/dL Total Bilirubin (0.2-1.3) mg/dL AST (14-36) U/L ALT (4-34) U/L Alkaline Phosphatase (38-126) U/L Total Protein (6.3-8.2) g/dL Albumin (3.5-5.0) g/dL Urine Color Light Yellow Urine Appearance Clear (Clear) Urine pH 5.5 (5.0-8.0) Ur Specific [place] 1.014 (1.001-1.035) Urine Protein Negative (Negative) Urine Glucose (UA) 1+ H (Negative) Urine Ketones Negative (Negative) Urine Blood Large H (Negative) Urine Nitrite Negative (Negative) Urine Bilirubin Negative (Negative) Urine Urobilinogen <2.0 (<2.0) mg/dL Ur Leukocyte Esterase Trace H (Negative) Urine RBC 156 H (0-5) /hpf Urine WBC 6 H (0-5) /hpf Ur Squamous Epith Cells 1 (0-4) /hpf Urine Bacteria Rare H (None) /hpf Hyaline Casts 5 H (0-2) /lpf Urine Mucus Rare H (None) /hpf Blood Type Blood Type Recheck Bld Type Recheck Status Antibody Screen Crossmatch Spec Expiration Date Disposition Clinical Impression: Abnormal uterine bleeding, Uterine mass, Symptomatic anemia Disposition: HOME SELF-CARE Condition: Good Instructions (If sedation given, give patient instructions): Abnormal (Dysfunctional) Uterine Bleeding (ED), Uterine Cancer (DC) Additional Instructions: Every disease is a spectrum and a small chance still exists that a serious condition could develop, for this reason, please monitor yourself closely for new, changing or worsening symptoms, vaginal bleeding to the point of soaking a pad an hour for more than 2 hours or any heavier bleeding than this, dizziness, shortness of breath, uncontrolled abdominal pain or new abdominal pain, vaginal discharge, fever, inability to tolerate/keep down fluids or your medications, inability to follow up with outpatient providers as instructed and should you experience these symptoms or should you have any further concerns for your wellbeing please return to the ED or call 911 immediately. Please have your labs, specifically CBC rechecked within 48 hours to ensure your hgb remains stable and you do not require additional blood transfusions. Please follow-up with Dr. Costello within 48 hours regarding today's visit. PLEASE call your primary care physician as soon as possible to arrange / discuss plan for followup appointment. Appointment in the next 1-3 days is strongly encouraged if possible. PLEASE let us know here before you leave if there is anything further we can do to be of any assistance. Take care and feel Better! Is patient prescribed a controlled substance at d/c from ED?: No Referrals: Luigi Mtz FNPBC [REFERRING] - 1-2 days
[2025-03-05 21:41] LABS: Eosinophils # (A) 0.14 10*3/uL (0.04-0.35); Eosinophils % (A) 1.3 %; HCT 21.8 % (37.2-46.3); Lymphocytes # (A) 1.94 10*3/uL (0.90-5.00); Lymphocytes % (A) 18.7 %; MCH 25.5 pg (27.0-32.0); MCHC 30.7 g/dL (32.0-37.0); MCV 82.9 fL (80.0-97.0); Mean Platelet Volume 8.6 fL (9.5-12.2); Monocytes # (A) 1.19 10*3/uL (0.20-1.00); Monocytes % (A) 11.5 %; Neutrophils # (A) 6.91 10*3/uL (1.80-7.70); Neutrophils % (A) 66.4 %; Platelet Count 335 10*3/uL (140-440); RBC 2.63 10*6/uL (4.10-5.20); RDW 22.5 % (11.5-14.5); WBC 10.39 10*3/uL (4.50-10.00)
[2025-03-05] MEDS: SODIUM CHLORIDE 0.9% 500 ML 500 ML IV ONE (21:57)
[2025-03-05 22:03] LABS: ALT 15 U/L (4-34); AST 32 U/L (14-36); African American GFR (CKD) >90 (>60 ml/min/1.73 sqM); Albumin 3.7 g/dL (3.5-5.0); Alkaline Phosphatase 109 U/L (38-126); Anion Gap 11 mmol/L; Blood Urea Nitrogen 12 mg/dL (7-17); Calcium 9.5 mg/dL (8.4-10.2); Carbon Dioxide 22 mmol/L (22-30); Chloride 103 mmol/L (98-107); Glucose 253 mg/dL (74-99); Non-African American GFR(CKD) >90 (>60 ml/min/1.73 sqM); Potassium 4.4 mmol/L (3.5-5.1); Sodium 136 mmol/L (137-145); Total Bilirubin 0.5 mg/dL (0.2-1.3); Total Protein 5.8 g/dL (6.3-8.2)
[2025-03-05 22:04] LABS: Prothrombin Time 11.4 sec (10.0-12.5)
[2025-03-05 22:08] LABS: HGB 6.7 g/dL (12.0-15.0)
[2025-03-05 22:09] LABS: Partial Thromboplastin Time 19.4 sec (22.0-30.0)
[2025-03-05 22:17] LABS: Anisocytosis (M) Present
[2025-03-05] MEDS: HYDROmorphone 0.5 MG/0.5 ML SYRINGE IVP STA (23:14)
--- NOTE | 2025-03-06 01:03 | US ---
EXAM: US Pelvis Transvaginal CLINICAL HISTORY: Known uterine CA, heavy vaginal bleeding TECHNIQUE: Real-time transvaginal pelvic ultrasound with image documentation. Transvaginal imaging was used for better evaluation of the endometrium and adnexa. COMPARISON: Pelvic ultrasound 07/18/2024 FINDINGS: Uterus/cervix: The uterus measures 9.4 x 4.5 x 5.6 cm. The endometrial stripe is poorly delineated but measures approximately 4.3 mm in the lower uterine segment. Right ovary: The ovaries are not identified transvaginally secondary to bowel gas pattern. No adnexal mass. Left ovary: The ovaries are not identified transvaginally secondary to bowel gas pattern. No adnexal mass. Free fluid: No free fluid. Bladder: Empty bladder which cannot be evaluated with this probe. Vasculature: The abnormal vascular mass lesion noted in the cervix, extending into the vaginal fornix is again identified and is more echogenic with more prominent internal vascular flow, now measuring 6.1 x 4.1 x 4 cm from 4.2 x 3.1 x 4 cm previously. IMPRESSION: The abnormal vascular mass lesion noted in the cervix, extending into the vaginal fornix is again identified and is more echogenic with more prominent internal vascular flow, now measuring 6.1 x 4.1 x 4 cm from 4.2 x 3.1 x 4 cm previously.
[2025-03-06 02:32] LABS: Appearance,Urine Clear (Clear); Bacteria,Urine Rare /hpf; Bilirubin,Urine Negative (Negative); Blood,Urine Large (Negative); Color,Urine Light Yellow; Glucose,Urine (UA) 1+ (Negative); Hyaline Casts,Urine 5 /lpf (0-2); Ketones,Urine Negative (Negative); Leukocyte Esterase,Urine Trace (Negative); Mucus,Urine Rare /hpf; Nitrite,Urine Negative (Negative); PH, Urine 5.5 (5.0-8.0); Protein,Urine Negative (Negative); RBC,Urine 156 /hpf (0-5); Specific Gravity,Urine 1.014 (1.001-1.035); Squamous Epithelial Cell,Urine 1 /hpf (0-4); Urobilinogen,Urine <2.0 mg/dL (<2.0); WBC,Urine 6 /hpf (0-5)
[2025-03-06] MEDS: HYDROmorphone 1 MG/ML 1 ML SYRINGE IVP STA (02:55)
[2025-03-06 02:59] VITALS: BP 126/78; PULSE 81; RESP 18; TEMP 97.8
== END 2025-03-06 03:05 | disposition home or self-care (01) ==
LOC: EC 20:59 → SUPCPDRO 20:59 → EC 03-06 03:05
DX: N93.9 Abnormal uterine and vaginal bleeding, unspecified (principal); D64.9 Anemia, unspecified; C55 Malignant neoplasm of uterus, part unspecified; Z87.891 Personal history of nicotine dependence; Z88.7 Allergy status to serum and vaccine; Z91.018 Allergy to other foods
CPT/HCPCS: 36415; 86900; 86901; 80053; 83605; 85025; 85610; 85730; 86850; 86920; 81001; 76830; 99291; 96374; 96361; 36430; P9016; J1171

== ENCOUNTER 2025-03-27 10:56 | Observation (INO) | payer MEDICARE, OTHER ==
[2025-03-27 11:30] LABS: Basophils # (A) 0.06 10*3/uL (0.00-0.10); Basophils % (A) 0.8 %; Eosinophils # (A) 0.12 10*3/uL (0.04-0.35); Eosinophils % (A) 1.7 %; Lymphocytes # (A) 1.30 10*3/uL (0.90-5.00); Lymphocytes % (A) 18.1 %; MCH 26.2 pg (27.0-32.0); MCHC 30.1 g/dL (32.0-37.0); MCV 86.9 fL (80.0-97.0); Monocytes # (A) 0.71 10*3/uL (0.20-1.00); Monocytes % (A) 9.9 %; Neutrophils # (A) 4.96 10*3/uL (1.80-7.70); Neutrophils % (A) 68.9 %; Platelet Count 250 10*3/uL (140-440); RBC 1.91 10*6/uL (4.10-5.20); RDW 21.9 % (11.5-14.5); WBC 7.19 10*3/uL (4.50-10.00)
--- NOTE | 2025-03-27 11:33 | ED ---
General Adult HPI - General Chief complaint: Recheck/Abnormal Lab/Rx Stated complaint: Transfusion Time Seen by Provider: 03/27/25 11:04 Source: patient Mode of arrival: ambulatory Limitations: no limitations - History of Present Illness Initial comments: Dictation was produced using [employer] dictation software. please excuse any grammatical, word or spelling errors. Chief Complaint: 59-year-old female presents with anemia History of Present Illness: Patient 59-year-old female has history of vaginal cancer. Gets chemotherapy once every 3 weeks. Had blood work drawn today at [facility] and was found have a hemoglobin of 5.8. Patient no other complaints. Patient reports that she has chronic vaginal bleeding due to vaginal cancer. States that the vaginal bleeding is waxing and waning. States that she has not seen a meatman regarding her bleeding. The ROS documented in this emergency department record has been reviewed and confirmed by me. Those systems with pertinent positive or negative responses have been documented in the HPI. All other systems are other negative and/or noncontributory. - Related Data Home Medications Medication Instructions Recorded Confirmed metFORMIN HCL [Glucophage] 1,000 mg PO BID 09/29/15 02/24/25 Oxybutynin Chloride 5 mg PO BID 03/16/18 02/24/25 Levothyroxine Sodium [Synthroid] 50 mcg PO DAILY 05/30/19 02/24/25 Losartan Potassium [Cozaar] 100 mg PO DAILY 03/27/20 02/24/25 Propranolol [Inderal] 40 mg PO BID 03/27/20 02/24/25 gemfibroziL [Lopid] 600 mg PO BID 03/27/20 02/24/25 Baclofen 10 mg PO HS 01/01/24 02/24/25 Dulaglutide [Trulicity] 3 mg SQ FR 01/01/24 02/24/25 Insulin Glargine,Hum.rec.anlog 70 units SQ HS 01/01/24 02/24/25 [Tori Haddadostleighann] Loratadine [Claritin] 10 mg PO DAILY 01/01/24 02/24/25 ARIPiprazole [Abilify] 5 mg PO HS 01/10/25 02/24/25 FLUoxetine HCL [PROzac] 40 mg PO DAILY 01/10/25 02/24/25 Nystatin 100,000Unit/gm Cream 1 applic TOPICAL DIRECTED PRN 01/10/25 02/24/25 [Mycostatin Cream] Omeprazole [PriLOSEC] 20 mg PO AC-BRKFST 01/10/25 02/24/25 hydrOXYzine pamoate [Vistaril] 25 mg PO TID 01/10/25 02/24/25 hydrOXYzine pamoate [Vistaril] 50 mg PO HS 01/10/25 02/24/25 HYDROcodone/APAP 5-325MG [[place] 1 tab PO Q6HR PRN 02/24/25 02/24/25 5-325] Previous Rx's Medication Instructions Recorded Atorvastatin [Lipitor] 20 mg PO HS #0 tab 01/08/24 [place] Carbonate 600 mg PO HS 30 Days #30 cap 01/08/24 lamoTRIgine [LaMICtal] 100 mg PO BID 30 Days #60 tab 01/08/24 rOPINIRole HCL [Requip] 1 mg PO TID 30 Days #90 tab 01/08/24 Allergies Allergy/AdvReac Type Severity Reaction Status Date / Time coconut oil Allergy Unknown Anaphylaxis Verified 03/27/25 11:02 pineapple [Pineapple] Allergy Unknown Anaphylaxis Verified 03/27/25 11:02 licorice Allergy Anaphylaxis Verified 03/27/25 11:02 Influenza Virus Vaccines AdvReac Nausea & Verified 03/27/25 11:02 Vomiting Review of Systems ROS Statement: Those systems with pertinent positive or pertinent negative responses have been documented in the HPI. ROS Other: All systems not noted in ROS Statement are negative. Past Medical History Past Medical History: Diabetes Mellitus, Fibromyalgia, GERD/Reflux, Hyperlipidemia, Hypertension, Musculoskeletal Disorder, Seizure Disorder, Skin Disorder, Sleep Apnea/CPAP/BIPAP, Thyroid Disorder Additional Past Medical History / Comment(s): Diabetes Type 2, Borderline personality, Benign liver cyst, abnormal vaginal bleeding since 2023, no use of CPAP, recent dx. of uterine cancer, last seizure several years ago(pseudo seizures), "yeast" under breast, uses nystatin for History of Any Multi-Drug Resistant Organisms: None Reported Past Surgical History: Cholecystectomy Additional Past Surgical History / Comment(s): chemo port R chest Past Anesthesia/Blood Transfusion Reactions: No Reported Reaction Past Psychological History: Anxiety, Bipolar, Depression, Schizophrenia Smoking Status: Former smoker Past Alcohol Use History: None Reported Past Drug Use History: None Reported - Past Family History Father History Unknown: Yes Family Medical History: Myocardial Infarction ([place]) Additional Family Medical History / Comment(s): passed of [place] at 71 Mother History Unknown: Yes Family Medical History: Diabetes Mellitus Sister(s) History Unknown: Yes Family Medical History: COPD, Myocardial Infarction ([place]) Additional Family Medical History / Comment(s): fatal [place] at 50 General Exam - General Exam Comments Initial Comments: PHYSICAL EXAM: General Impression: Alert and oriented x3, not in acute distress, pale HEENT: Normocephalic atraumatic, extra-ocular movements intact, pupils equal and reactive to light bilaterally, mucous membranes moist. Cardiovascular: Heart regular rate and rhythm Chest: Able to complete full sentences, no retractions, no tachypnea Abdomen: abdomen soft, non-tender, non-distended, no organomegaly Musculoskeletal: Pulses present and equal in all extremities, no peripheral edema Motor: no focal deficits noted Neurological: CN II-XII grossly intact, no focal motor or sensory deficits noted Skin: Intact with no visualized rashes Psych: Normal affect and mood Limitations: no limitations Course Vital Signs 03/27/25 11:00 Temperature 97.4 F L Pulse Rate 77 Respiratory 20 Rate Blood Pressure 98/56 O2 Sat by Pulse 100 Oximetry Medical Decision Making - Medical Decision Making Was pt. sent in by a medical professional or institution (ANIRUDH Steele, EVENT ATTENDANT, urgent care, hospital, or shelter...) When possible be specific @ -No Did you speak to anyone other than the patient for history (EMS, parent, family, police, friend...)? What history was obtained from this source @ -No Did you review nursing and triage notes (agree or disagree)? Why? @ -I reviewed and agree with nursing and triage notes Were old charts reviewed (outside hosp., previous admission, EMS record, old EKG, old radiological studies, urgent care reports/EKG's, shelter records)? Report findings @ -No old charts were reviewed Differential Diagnosis (chest pain, altered mental status, abdominal pain women, abdominal pain men, vaginal bleeding, musculoskeletal, weakness, fever, dyspnea, syncope, headache, dizziness, GI bleed, back pain, seizure, CVA, palpatations, mental health)? @ -Vaginal bleeding, GI bleeding, chemotherapy-induced anemia EKG interpreted by me (3pts min.). @ - X-rays interpreted by me (1pt min.). @ -None done CT interpreted by me (1pt min.). @ -None done U/S interpreted by me (1pt. min.). @ -None done What testing was considered but not performed or refused? (CT, X-rays, U/S, labs)? Why? @ -None What meds were considered but not given or refused? Why? @ -None Was smoking cessation discussed for >3mins.? @ -No Were there social determinants of health that impacted care today? How? (Homelessness, low income, unemployed, alcoholism, drug addiction, transportation, low edu. Level, literacy, decrease access to med. care, correction, rehab)? @ -No Was there de-escalation of care discussed even if they declined (Discuss DNR or withdrawal of care, Hospice)? DNR status @ -No What co-morbidities impacted this encounter? (DM, HTN, Smoking, COPD, CAD, Cancer, CVA, ARF, Chemo, Hep., AIDS, mental health diagnosis, sleep apnea, morbid obesity)? @ -Vaginal cancer Was patient admitted / discharged? Hospital course, mention meds given and route, prescriptions, significant lab abnormalities, going to OR and other pertinent info. @ -59-year-old female presents to the emergency department with abnormal outpatient labs. Patient was found to have a low hemoglobin. Vital signs upon arrival are within acceptable limits. Patient pale at the bedside however no acute distress. Reports chronic vaginal bleeding. Laboratory evaluation obtained. Hemoglobin 5.0. Patient ordered for 3 units of PRBCs will be admitted for blood transfusion. Gynecology consulted for vaginal bleeding. Did you discuss the management of the patient with other professionals (professionals i.e. , PA, EVENT ATTENDANT, lab, RT, psych nurse, social group worker, nursing associate, teacher, enforcement safety officer, home health care case manager)? Give summary @ -No Was critical care preformed (if so, how long)? @ -Yes, 33 minutes for severe anemia Undiagnosed new problem with uncertain prognosis? @ -No Drug Therapy requiring intensive monitoring for toxicity (Heparin, Nitro, Insulin, Cardizem)? @ -No Were any procedures done? @ -No Diagnosis/symptom? Acute, or Chronic, or Acute on Chronic? Uncomplicated (wi thout systemic symptoms) or Complicated (systemic symptoms)? @ -Anemia Side effects of treatment? @ -No Exacerbation, Progression, or Severe Exacerbation? @ -No Poses a threat to life or bodily function? How? (Chest pain, [place], [place], pneumonia, PE, COPD, DKA, ARF, appy, cholecystitis, CVA, Diverticulitis, Homicidal, Suicidal, threat to staff... and all critical care pts) @ -yes - Lab Data Result diagrams: 03/27/25 11:21 03/27/25 11:21 Lab Results 03/27/25 03/27/25 03/27/25 Range/Units 11:18 11:21 11:21 WBC 7.19 (4.50-10.00) 10*3/uL RBC 1.91 L (4.10-5.20) 10*6/uL Hgb 5.0 L* D (12.0-15.0) g/dL Hct 16.6 L* (37.2-46.3) % MCV 86.9 (80.0-97.0) fL MCH 26.2 L (27.0-32.0) pg MCHC 30.1 L (32.0-37.0) g/dL Plt Count 250 (140-440) 10*3/uL MPV 9.5 (9.5-12.2) fL Immature Gran % (Auto) 0.6 % Neutrophils % 68.9 % Lymphocytes % 18.1 % Monocytes % 9.9 % Eosinophils % 1.7 % Basophils % 0.8 % Immature Gran # 0.04 (0.00-0.04) 10*3/uL Neutrophils # 4.96 (1.80-7.70) 10*3/uL Lymphocytes # 1.30 (0.90-5.00) 10*3/uL Monocytes # 0.71 (0.20-1.00) 10*3/uL Eosinophils # 0.12 (0.04-0.35) 10*3/uL Basophils # 0.06 (0.00-0.10) 10*3/uL PT 11.2 (10.0-12.5) sec INR 1.0 (<1.2) APTT 22.5 (22.0-30.0) sec Carbon Dioxide (22-30) mmol/L BUN (7-17) mg/dL Creatinine (0.52-1.04) mg/dL Est GFR (CKD-EPI)AfAm (>60 ml/min/1.73 sqM) Est GFR (CKD-EPI)NonAf (>60 ml/min/1.73 sqM) Blood Type O Positive Blood Type Recheck O Pos Bld Type Recheck Status No Antibody Screen NEGATIVE Spec Expiration Date 03/30/2025 - 231703/27/25 Range/Units 11:21 WBC (4.50-10.00) 10*3/uL RBC (4.10-5.20) 10*6/uL Hgb (12.0-15.0) g/dL Hct (37.2-46.3) % MCV (80.0-97.0) fL MCH (27.0-32.0) pg MCHC (32.0-37.0) g/dL Plt Count (140-440) 10*3/uL MPV (9.5-12.2) fL Immature Gran % (Auto) % Neutrophils % % Lymphocytes % % Monocytes % % Eosinophils % % Basophils % % Immature Gran # (0.00-0.04) 10*3/uL Neutrophils # (1.80-7.70) 10*3/uL Lymphocytes # (0.90-5.00) 10*3/uL Monocytes # (0.20-1.00) 10*3/uL Eosinophils # (0.04-0.35) 10*3/uL Basophils # (0.00-0.10) 10*3/uL PT (10.0-12.5) sec INR (<1.2) APTT (22.0-30.0) sec Carbon Dioxide 20 L (22-30) mmol/L BUN 13 (7-17) mg/dL Creatinine 0.45 L (0.52-1.04) mg/dL Est GFR (CKD-EPI)AfAm >90 (>60 ml/min/1.73 sqM) Est GFR (CKD-EPI)NonAf >90 (>60 ml/min/1.73 sqM) Blood Type Blood Type Recheck Bld Type Recheck Status Antibody Screen Spec Expiration Date Disposition Clinical Impression: Anemia Disposition: ADMITTED IP TO THIS [facility] Condition: Fair Referrals: Nonstaff,Physician [Primary Care Provider] - 1-2 days Decision Time: 12:42
[2025-03-27 11:40] LABS: INR 1.0 (<1.2); Partial Thromboplastin Time 22.5 sec (22.0-30.0); Prothrombin Time 11.2 sec (10.0-12.5)
[2025-03-27 11:45] LABS: HCT 16.6 % (37.2-46.3)
[2025-03-27 11:46] LABS: HGB 5.0 g/dL (12.0-15.0)
[2025-03-27 12:30] LABS: African American GFR (CKD) >90 (>60 ml/min/1.73 sqM); Blood Urea Nitrogen 13 mg/dL (7-17); Non-African American GFR(CKD) >90 (>60 ml/min/1.73 sqM)
[2025-03-27 12:38] LABS: Anion Gap 13 mmol/L; Calcium 10.0 mg/dL (8.4-10.2); Chloride 105 mmol/L (98-107); Glucose 153 mg/dL (74-99); Potassium 5.0 mmol/L (3.5-5.1); Sodium 136 mmol/L (137-145)
[2025-03-27] MEDS ORDERED: NALOXONE 0.4 MG/ML 1 ML VIAL IV PRN (12:39)
[2025-03-27 12:43] LABS: Carbon Dioxide 18 mmol/L (22-30)
[2025-03-27] MEDS: SODIUM CHLORIDE 0.9% 1,000 ML IV SCH (12:45)
[2025-03-27] MEDS ORDERED: ACETAMINOPHEN TAB 325 MG TAB PO PRN (15:18)
[2025-03-27] MEDS ORDERED: DEXTROSE 50% SYRINGE 50 ML IVP PRN ×2 (15:18)
--- NOTE | 2025-03-27 15:42 | P.HPIM ---
History of Present Illness H&P Date: 03/27/25 This is a 59 year old female with medical history of diabetes mellitus, fibromyalgia, GERD, hypertension, hyperlipidemia, sleep apnea, hypothyroidism, uterine cancer, anxiety, bipolar, depression, schizophrenia, former smoker. Patient comes in to the hospital with reports of heavy vaginal bleeding onset of 3 days ago. She has been feeling fatigued. Patient has a known diagnosis of uterine cancer and follows with Dr David on an outpatient basis. Patient is currently undergoing chemotherapy and last received 3 weeks ago. Has been following with [facility] on get an outpatient basis did have a transvaginal ultrasound completed on March 05, 2025 because of the known uterine cancer and heavy vaginal bleeding. Transvaginal pelvic ultrasound reveals abnormal vascular mass lesion noted in the cervix extending into the vaginal fornix identified and is more echogenic with more prominent internal vascular flow now measuring 6.1 x 4.1 x 4 cm from 4.2 x 3.1 x 4 cm previously. On admission hemoglobin found to be 5.0, sodium 136, potassium 5.5., BUN 13, creatinine 0.43, glucose 153. Patient was admitted for symptomatic anemia and vaginal bleeding. Patient to receive 3 units of PRBCs. Gynecology and oncology will be consulted. Patient is admitted to general medical floor. REVIEW OF SYSTEMS: CONSTITUTIONAL: No fever, no malaise, no fatigue. HEENT: No recent visual problems or hearing problems. Denied any sore throat. CARDIOVASCULAR: No chest pain, orthopnea, PND, no palpitations, no syncope. PULMONARY: No shortness of breath, no cough, no hemoptysis. GASTROINTESTINAL: No diarrhea, no nausea, no vomiting, no abdominal pain. NEUROLOGICAL: No headaches, no weakness, no numbness. HEMATOLOGICAL: Denies any bleeding or petechiae. GENITOURINARY: Denies any burning micturition, frequency, or urgency. Reports vaginal bleeding MUSCULOSKELETAL/RHEUMATOLOGICAL: Denies any joint pain, swelling, or any muscle pain. ENDOCRINE: Denies any polyuria or polydipsia. The rest of the 14-point review of systems is negative. PHYSICAL EXAMINATION: GENERAL: The patient is alert and oriented x3, not in any acute distress. Well developed, well nourished. HEENT: Pupils are round and equally reacting to light. EOMI. No scleral icterus. No conjunctival pallor. Normocephalic, atraumatic. No pharyngeal erythema. No thyromegaly. CARDIOVASCULAR: S1 and S2 present. No murmurs, rubs, or gallops. PULMONARY: Chest is clear to auscultation, no wheezing or crackles. ABDOMEN: Soft, nontender, nondistended, normoactive bowel sounds. No palpable organomegaly. MUSCULOSKELETAL: No joint swelling or deformity. EXTREMITIES: No cyanosis, clubbing, or pedal edema. NEUROLOGICAL: Gross neurological examination did not reveal any focal deficits. SKIN: No rashes. Assessment Acute blood loss anemia secondary to vaginal bleeding History of uterine cancer currently undergoing chemotherapy Known cervical mass with recent transvaginal pelvic ultrasound showing increased growth and vasculature as prior Diabetes mellitus type 2 Fibromyalgia Gastroesophageal reflux disease Hypertension currently normotensive Sleep apnea with CPAP use Hyperlipidemia Hypothyroidism Anxiety/bipolar/depression/schizophrenia GI Prophylaxis DVT Prophylaxis contraindicated because of the anemia Full Code Plan Patient scheduled to receive 3 units of PRBC Hold losartan due to low BP Hold metformin Accuchecks ACHS and sliding scale insulin ordered Gynecology and oncology consultation Check CBC in the AM PT/OT consultation The impression and plan of care has been dictated by Rosalie Galloway Nurse Practitioner as directed. Dr. Federico MD I have performed a history and physical examination and medical decision making of this patient, discussed the same with the dictator, and agree with the dictators assessment and plan as written, documented as a scribe. Based on total visit time, I have performed more than 50% of this visit. Past Medical History Past Medical History: Diabetes Mellitus, Fibromyalgia, GERD/Reflux, Hyperlipidemia, Hypertension, Musculoskeletal Disorder, Seizure Disorder, Skin Disorder, Sleep Apnea/CPAP/BIPAP, Thyroid Disorder Additional Past Medical History / Comment(s): Diabetes Type 2, Borderline personality, Benign liver cyst, abnormal vaginal bleeding since 2023, no use of CPAP, recent dx. of uterine cancer, last seizure several years ago(pseudo seizures), "yeast" under breast, uses nystatin for History of Any Multi-Drug Resistant Organisms: None Reported Past Surgical History: Cholecystectomy Additional Past Surgical History / Comment(s): chemo port R chest Past Anesthesia/Blood Transfusion Reactions: No Reported Reaction Past Psychological History: Anxiety, Bipolar, Depression, Schizophrenia Smoking Status: Former smoker Past Alcohol Use History: None Reported Past Drug Use History: None Reported - Past Family History Father History Unknown: Yes Family Medical History: Myocardial Infarction ([place]) Additional Family Medical History / Comment(s): passed of [place] at 71 Mother History Unknown: Yes Family Medical History: Diabetes Mellitus Sister(s) History Unknown: Yes Family Medical History: COPD, Myocardial Infarction ([place]) Additional Family Medical History / Comment(s): fatal [place] at 50 Medications and Allergies Home Medications Medication Instructions Recorded Confirmed Type metFORMIN HCL [Glucophage] 1,000 mg PO BID 09/29/15 03/27/25 History Oxybutynin Chloride 5 mg PO BID 03/16/18 03/27/25 History Levothyroxine Sodium [Synthroid] 50 mcg PO DAILY 05/30/19 03/27/25 History Losartan Potassium [Cozaar] 100 mg PO DAILY 03/27/20 03/27/25 History Propranolol [Inderal] 40 mg PO BID 03/27/20 03/27/25 History gemfibroziL [Lopid] 600 mg PO BID 03/27/20 03/27/25 History Baclofen 10 mg PO HS 01/01/24 03/27/25 History Dulaglutide [Trulicity] 3 mg SQ FR 01/01/24 03/27/25 History Insulin Glargine,Hum.rec.anlog 70 units SQ HS@1700 01/01/24 03/27/25 History [[place] Solostar] Loratadine [Claritin] 10 mg PO DAILY 01/01/24 03/27/25 History Atorvastatin [Lipitor] 20 mg PO HS #0 tab 01/08/24 03/27/25 Rx [place] Carbonate 600 mg PO HS 30 Days #30 cap 01/08/24 03/27/25 Rx rOPINIRole HCL [Requip] 1 mg PO TID 30 Days #90 tab 01/08/24 03/27/25 Rx FLUoxetine HCL [PROzac] 80 mg PO DAILY 01/10/25 03/27/25 History Omeprazole [PriLOSEC] 20 mg PO AC-BRKFST 01/10/25 03/27/25 History hydrOXYzine pamoate [Vistaril] 25 mg PO AC-TID 01/10/25 03/27/25 History hydrOXYzine pamoate [Vistaril] 50 mg PO HS 01/10/25 03/27/25 History HYDROcodone/APAP 5-325MG [[place] 1 tab PO Q4H PRN 02/24/25 03/27/25 History 5-325] Aprepitant 80 mg PO DIRECTED 03/27/25 03/27/25 History Lidocaine-Prilocaine Cream [[place] 1 applic TOPICAL DIRECTED PRN 03/27/25 03/27/25 History Cream 2.5%/2.5%] Nystatin 100,000 Unit/gm Oint 1 applic TOPICAL BID PRN 03/27/25 03/27/25 History [Mycostatin Oint] Nystatin/Triamcinolone Acet 1 applic TOPICAL QID 03/27/25 03/27/25 History [Nystatin-Triamcinolone Cream] Ondansetron Odt [Zofran Odt] 8 mg PO Q4H PRN 03/27/25 03/27/25 History Primidone [Mysoline] 25 mg PO HS 03/27/25 03/27/25 History Allergies Allergy/AdvReac Type Severity Reaction Status Date / Time coconut oil Allergy Unknown Anaphylaxis Verified 03/27/25 15:06 pineapple [Pineapple] Allergy Unknown Anaphylaxis Verified 03/27/25 15:06 licorice Allergy Anaphylaxis Verified 03/27/25 15:06 Influenza Virus Vaccines AdvReac Nausea & Verified 03/27/25 15:06 Vomiting Physical Exam Vitals: Vital Signs Temp Pulse Resp BP Pulse Ox 03/27/25 14:59 98.7 F 76 20 124/64 99 03/27/25 13:59 98.8 F 78 16 100/54 03/27/25 13:39 98.8 F 78 18 106/56 03/27/25 13:30 98.1 F 76 18 101/52 98 03/27/25 11:00 97.4 F L 77 20 98/56 100 Intake and Output 03/27/25 03/27/25 03/27/25 06:59 14:59 22:59 Intake Total 0 Balance 0 Intake: Blood Product 0 Unit 0 Other: Weight 79.379 kg Results CBC & Chem 7: 03/27/25 11:21 03/27/25 11:21 Labs: Abnormal Lab Results - Last 24 Hours (Table) 03/27/25 03/27/25 03/27/25 Range/Units 11:18 11:21 11:21 RBC 1.91 L (4.10-5.20) 10*6/uL Hgb 5.0 L* D (12.0-15.0) g/dL Hct 16.6 L* (37.2-46.3) % MCH 26.2 L (27.0-32.0) pg MCHC 30.1 L (32.0-37.0) g/dL Sodium 136 L (137-145) mmol/L Carbon Dioxide 18 L (22-30) mmol/L Creatinine 0.43 L (0.52-1.04) mg/dL Glucose 153 H (74-99) mg/dL Crossmatch See Detail Assessment and Plan Time with Patient: Less than 30
[2025-03-27 17:40] LABS: Glucose,Whole Blood 178 mg/dL (70-110)
[2025-03-27] MEDS: hydrOXYzine HCL 25 MG TAB PO SCH ×2 (17:43→21:21)
[2025-03-27] MEDS: INSULIN LISPRO (HumaLOG) 100 UNIT/ML 10 mL VL SQ SCH (17:43)
[2025-03-27] MEDS: PROPRANOLOL 40 MG TAB PO SCH (21:19)
[2025-03-27] MEDS: LITHIUM CARBONATE 300 MG CAP PO SCH (21:19)
[2025-03-27] MEDS: BACLOFEN 10 MG TAB PO SCH (21:20)
[2025-03-27] MEDS: FENOFIBRATE 160 MG TAB PO SCH (21:21)
[2025-03-27] MEDS: PRIMIDONE 50 MG TAB PO SCH (21:21)
[2025-03-27] MEDS: ATORVASTATIN 20 MG TAB PO SCH (21:21)
[2025-03-27 22:32] LABS: Glucose,Whole Blood 121 mg/dL (70-110)
[2025-03-28 06:09] LABS: Glucose,Whole Blood 110 mg/dL (70-110)
[2025-03-28] MEDS: LEVOTHYROXINE 50 MCG TAB PO SCH (06:24)
[2025-03-28 07:28] LABS: Basophils # (A) 0.06 10*3/uL (0.00-0.10); Basophils % (A) 1.0 %; Eosinophils # (A) 0.09 10*3/uL (0.04-0.35); Eosinophils % (A) 1.6 %; HCT 26.6 % (37.2-46.3); Lymphocytes # (A) 1.24 10*3/uL (0.90-5.00); Lymphocytes % (A) 21.4 %; MCH 27.4 pg (27.0-32.0); MCHC 31.6 g/dL (32.0-37.0); MCV 86.6 fL (80.0-97.0); Monocytes # (A) 0.57 10*3/uL (0.20-1.00); Monocytes % (A) 9.8 %; Neutrophils # (A) 3.82 10*3/uL (1.80-7.70); Neutrophils % (A) 65.9 %; Platelet Count 195 10*3/uL (140-440); RBC 3.07 10*6/uL (4.10-5.20); RDW 18.2 % (11.5-14.5); WBC 5.80 10*3/uL (4.50-10.00)
[2025-03-28 07:39] LABS: HGB 8.4 g/dL (12.0-15.0)
[2025-03-28 07:51] LABS: African American GFR (CKD) >90 (>60 ml/min/1.73 sqM); Anion Gap 11 mmol/L; Blood Urea Nitrogen 11 mg/dL (7-17); Calcium 9.6 mg/dL (8.4-10.2); Carbon Dioxide 19 mmol/L (22-30); Chloride 109 mmol/L (98-107); Glucose 100 mg/dL (74-99); Non-African American GFR(CKD) >90 (>60 ml/min/1.73 sqM); Potassium 4.2 mmol/L (3.5-5.1); Sodium 139 mmol/L (137-145)
[2025-03-28] MEDS: PANTOPRAZOLE 40 MG/10 ML VIAL IVP SCH (08:16)
[2025-03-28] MEDS: LORATADINE 10 MG TAB PO SCH (08:17)
[2025-03-28 11:36] LABS: Glucose,Whole Blood 135 mg/dL (70-110)
[2025-03-28] MEDS: ONDANSETRON 4 MG/2 ML VIAL IVP PRN (12:03)
--- NOTE | 2025-03-28 13:06 | P.PN ---
Subjective Progress Note Date: 03/28/25 This is a 59 year old female with medical history of diabetes mellitus, fibromyalgia, GERD, hypertension, hyperlipidemia, sleep apnea, hypothyroidism, uterine cancer, anxiety, bipolar, depression, schizophrenia, former smoker. Patient comes in to the hospital with reports of heavy vaginal bleeding onset of 3 days ago. She has been feeling fatigued. Patient has a known diagnosis of uterine cancer and follows with Dr David on an outpatient basis. Patient is currently undergoing chemotherapy and last received 3 weeks ago. Has been following with INOCULATOR on get an outpatient basis did have a transvaginal ultrasound completed on March 05, 2025 because of the known uterine cancer and heavy vaginal bleeding. Transvaginal pelvic ultrasound reveals abnormal vascular mass lesion noted in the cervix extending into the vaginal fornix identified and is more echogenic with more prominent internal vascular flow now measuring 6.1 x 4.1 x 4 cm from 4.2 x 3.1 x 4 cm previously. On admission hemoglobin found to be 5.0, sodium 136, potassium 5.5., BUN 13, creatinine 0.43, glucose 153. Patient was admitted for symptomatic anemia and vaginal bleeding. Patient to receive 3 units of PRBCs. Gynecology and oncology will be consulted. Patient is admitted to general medical floor. 03/28/2025 Patient is evaluated today in follow up on cardiac unit. Status post 3 units of PRBCs and hemoglobin today 8.4. Patient states she has continued vaginal bleeding; although states she wore only 1 pad overnight. Patient does follow with Dr ALLEN farm crew leader oncologist and states she does have an appt coming up was supposed to follow up after finishing chemotherapy. Was supposed to have chemo yesterday. REVIEW OF SYSTEMS: CONSTITUTIONAL: No fever, no malaise, no fatigue. HEENT: No recent visual problems or hearing problems. Denied any sore throat. CARDIOVASCULAR: No chest pain, orthopnea, PND, no palpitations, no syncope. PULMONARY: No shortness of breath, no cough, no hemoptysis. GASTROINTESTINAL: No diarrhea, no nausea, no vomiting, no abdominal pain. NEUROLOGICAL: No headaches, no weakness, no numbness. The rest of the 14-point review of systems is negative. PHYSICAL EXAMINATION: GENERAL: The patient is alert and oriented x3, not in any acute distress. Well developed, well nourished. HEENT: Pupils are round and equally reacting to light. EOMI. No scleral icterus. No conjunctival pallor. Normocephalic, atraumatic. No pharyngeal erythema. No thyromegaly. CARDIOVASCULAR: S1 and S2 present. No murmurs, rubs, or gallops. PULMONARY: Chest is clear to auscultation, no wheezing or crackles. ABDOMEN: Soft, nontender, nondistended, normoactive bowel sounds. No palpable organomegaly. MUSCULOSKELETAL: No joint swelling or deformity. EXTREMITIES: No cyanosis, clubbing, or pedal edema. NEUROLOGICAL: Gross neurological examination did not reveal any focal deficits. SKIN: No rashes. Assessment Acute blood loss anemia secondary to vaginal bleeding History of uterine cancer currently undergoing chemotherapy Known cervical mass with recent transvaginal pelvic ultrasound showing increased growth and vasculature as prior Diabetes mellitus type 2 Fibromyalgia Gastroesophageal reflux disease Hypertension currently normotensive Sleep apnea with CPAP use Hyperlipidemia Hypothyroidism Anxiety/bipolar/depression/schizophrenia GI Prophylaxis DVT Prophylaxis contraindicated because of the anemia Full Code Plan Patient is status post 3 units of PRBC Hold losartan due to low BP Hold metformin Accuchecks ACHS and sliding scale insulin ordered Gynecology and oncology consultation currently pending Check CBC in the AM PT/OT consultation The impression and plan of care has been dictated by Rosalie Galloway Nurse Practitioner as directed. Dr. Federico MD I have performed a history and physical examination and medical decision making of this patient, discussed the same with the dictator, and agree with the dictators assessment and plan as written, documented as a scribe. Based on total visit time, I have performed more than 50% of this visit. Objective - Vital Signs Vital signs: Vital Signs Temp 97.9 F 03/28/25 08:00 Pulse 81 03/28/25 08:00 Resp 18 03/28/25 08:00 BP 120/71 03/28/25 08:00 Pulse Ox 95 03/28/25 08:00 FiO2 Intake & Output 03/27/25 03/28/25 03/28/25 18:59 06:59 18:59 Intake Total 620 310 Balance 620 310 Weight 79.379 kg 79.2 kg Intake: Blood Product 620 310 Rc As-1 Unit 310 [id number] Rc As-1 Unit 310 [id number] Rc As-1 Unit 310 [id number] Other: Voiding Method Toilet Bedside Commode # Voids 1 1 # Bowel Movements 1 1 - Labs CBC & Chem 7: 03/28/25 07:19 03/28/25 07:19 Labs: Abnormal Lab Results - Last 24 Hours (Table) 03/27/25 03/27/25 03/27/25 Range/Units 11:18 11:21 11:21 RBC 1.91 L (4.10-5.20) 10*6/uL Hgb 5.0 L* D (12.0-15.0) g/dL Hct 16.6 L* (37.2-46.3) % MCH 26.2 L (27.0-32.0) pg MCHC 30.1 L (32.0-37.0) g/dL MPV (9.5-12.2) fL Sodium 136 L (137-145) mmol/L Chloride (98-107) mmol/L Carbon Dioxide 18 L (22-30) mmol/L Creatinine 0.43 L (0.52-1.04) mg/dL Glucose 153 H (74-99) mg/dL POC Glucose (mg/dL) (70-110) mg/dL Crossmatch See Detail 03/27/25 03/27/25 03/28/25 Range/Units 17:38 22:31 07:19 RBC 3.07 L (4.10-5.20) 10*6/uL Hgb 8.4 L D (12.0-15.0) g/dL Hct 26.6 L (37.2-46.3) % MCH (27.0-32.0) pg MCHC 31.6 L (32.0-37.0) g/dL MPV 9.0 L (9.5-12.2) fL Sodium (137-145) mmol/L Chloride (98-107) mmol/L Carbon Dioxide (22-30) mmol/L Creatinine (0.52-1.04) mg/dL Glucose (74-99) mg/dL POC Glucose (mg/dL) 178 H 121 H (70-110) mg/dL Crossmatch 03/28/25 Range/Units 07:19 RBC (4.10-5.20) 10*6/uL Hgb (12.0-15.0) g/dL Hct (37.2-46.3) % MCH (27.0-32.0) pg MCHC (32.0-37.0) g/dL MPV (9.5-12.2) fL Sodium (137-145) mmol/L Chloride 109 H (98-107) mmol/L Carbon Dioxide 19 L (22-30) mmol/L Creatinine 0.48 L (0.52-1.04) mg/dL Glucose 100 H (74-99) mg/dL POC Glucose (mg/dL) (70-110) mg/dL Crossmatch Assessment and Plan Time with Patient: Less than 30
[2025-03-28 16:21] LABS: Glucose,Whole Blood 195 mg/dL (70-110)
[2025-03-28 19:56] LABS: Glucose,Whole Blood 252 mg/dL (70-110)
--- NOTE | 2025-03-28 21:29 | P.CONS ---
History of Present Illness - Reason for Consult Consult date: 03/28/25 uterine cancer Requesting physician: Rosalie Galloway - Chief Complaint vaginal bleeding, anemia - History of Present Illness Patient is a 59 year old female with a history of uterine leiomyosarcoma, who follows with Dr. David. She initially presented with abdominal vaginal bleeding of several months duration,was evaluated by band tier locally then referred to Dr Eduardo,color weigher/onc,underwent pelvic exam and biopsy on 11/21/2024 which came back positive for uterine leiomyosarcoma. She did have a pelvic MRI on 10/15/2024 which showed 6 cm enhancing mass within vaginal canal abutting the cervix,loss of fat plane with abutment of posterior wall of urinary bladder. CT abdomen/ pelvis on 11/08/2024 which showed bilateral hydronephrosis and hydroureter,bulky mass in cervix. She also had a PET scan on 12/05/2024 which showed suspicious uptake in uterus and small focus of increased uptake left side of uterus. It was felt by PLASTICS WORKER/ONC that she is not resectable at this time and to consider systemic chemotherapy,based on response,may reconsider resection. Patient was started on doxorubicin and trabectidin, completing cycle 3 on 03/06/25. Patient presented to the clinic for treatment and hemoglobin was noted at 5.6 at which time she was referred to the ER for further evaluation. Repeat hemoglobin in the ER was noted at 5.0. Patient was transfused with 3 units PRBCs with r epeat hemoglobin showing appropriate response at 8.4. WBC 5.8, platelets 195,000. Of note patient has received blood transfusions on 02/24 and 03/05. She has been having persisting vaginal bleeding with no reported acute changes in bleeding with no clotting. She does report improvement in vaginal bleeding today. Denies abdominal pain and nausea vomiting. Denies SOB and dizziness. Review of Systems 10 point ROS is negative except as stated in the HPI Past Medical History Past Medical History: Cancer, Diabetes Mellitus, Fibromyalgia, GERD/Reflux, Hyperlipidemia, Hypertension, Musculoskeletal Disorder, Seizure Disorder, Skin Disorder, Sleep Apnea/CPAP/BIPAP, Thyroid Disorder Additional Past Medical History / Comment(s): Diabetes Type 2, Borderline personality, Benign liver cyst, vaginal bleeding since 2023, no use of CPAP, pseudoseizures, "yeast" under breast, 03/27/25: 2x rounds of chemo for uterine ca History of Any Multi-Drug Resistant Organisms: None Reported Past Surgical History: Cholecystectomy Additional Past Surgical History / Comment(s): chemo port R chest Past Anesthesia/Blood Transfusion Reactions: No Reported Reaction Past Psychological History: Anxiety, Bipolar, Depression, Schizophrenia Additional Psychological History / Comment(s): Borderline personality disorder Smoking Status: Former smoker Past Alcohol Use History: None Reported Additional Past Alcohol Use History / Comment(s): quit smoking 2019, 1/2ppd for 27 yrs. Past Drug Use History: None Reported Additional Drug Use History / Comment(s): pt said she has not used in 9 years but did use crack cocaine for 3 years - Past Family History Father History Unknown: Yes Family Medical History: Myocardial Infarction (VT) Additional Family Medical History / Comment(s): passed of VT at 71 Mother History Unknown: Yes Family Medical History: Diabetes Mellitus Sister(s) History Unknown: Yes Family Medical History: COPD, Myocardial Infarction (VT) Additional Family Medical History / Comment(s): fatal VT at 50 Medications and Allergies Home Medications Medication Instructions Recorded Confirmed Type metFORMIN HCL [Glucophage] 1,000 mg PO BID 09/29/15 03/27/25 History Oxybutynin Chloride 5 mg PO BID 03/16/18 03/27/25 History Levothyroxine Sodium [Synthroid] 50 mcg PO DAILY 05/30/19 03/27/25 History Losartan Potassium [Cozaar] 100 mg PO DAILY 03/27/20 03/27/25 History Propranolol [Inderal] 40 mg PO BID 03/27/20 03/27/25 History gemfibroziL [Lopid] 600 mg PO BID 03/27/20 03/27/25 History Baclofen 10 mg PO HS 01/01/24 03/27/25 History Dulaglutide [Trulicity] 3 mg SQ FR 01/01/24 03/27/25 History Insulin Glargine,Hum.rec.anlog 70 units SQ HS@1700 01/01/24 03/27/25 History [[place] Solostar] Loratadine [Claritin] 10 mg PO DAILY 01/01/24 03/27/25 History Atorvastatin [Lipitor] 20 mg PO HS #0 tab 01/08/24 03/27/25 Rx [place] Carbonate 600 mg PO HS 30 Days #30 cap 01/08/24 03/27/25 Rx rOPINIRole HCL [Requip] 1 mg PO TID 30 Days #90 tab 01/08/24 03/27/25 Rx FLUoxetine HCL [PROzac] 80 mg PO DAILY 01/10/25 03/27/25 History Omeprazole [PriLOSEC] 20 mg PO AC-BRKFST 01/10/25 03/27/25 History hydrOXYzine pamoate [Vistaril] 25 mg PO AC-TID 01/10/25 03/27/25 History hydrOXYzine pamoate [Vistaril] 50 mg PO HS 01/10/25 03/27/25 History HYDROcodone/APAP 5-325MG [[place] 1 tab PO Q4H PRN 02/24/25 03/27/25 History 5-325] Aprepitant 80 mg PO DIRECTED 03/27/25 03/27/25 History Lidocaine-Prilocaine Cream [Emla 1 applic TOPICAL DIRECTED PRN 03/27/25 03/27/25 History Cream 2.5%/2.5%] Nystatin 100,000 Unit/gm Oint 1 applic TOPICAL BID PRN 03/27/25 03/27/25 History [Mycostatin Oint] Nystatin/Triamcinolone Acet 1 applic TOPICAL QID 03/27/25 03/27/25 History [Nystatin-Triamcinolone Cream] Ondansetron Odt [Zofran Odt] 8 mg PO Q4H PRN 03/27/25 03/27/25 History Primidone [Mysoline] 25 mg PO HS 03/27/25 03/27/25 History Allergies Allergy/AdvReac Type Severity Reaction Status Date / Time coconut oil Allergy Unknown Anaphylaxis Verified 03/27/25 15:06 pineapple [Pineapple] Allergy Unknown Anaphylaxis Verified 03/27/25 15:06 licorice Allergy Anaphylaxis Verified 03/27/25 15:06 Influenza Virus Vaccines AdvReac Nausea & Verified 03/27/25 15:06 Vomiting Physical Exam Vitals: Vital Signs Temp Pulse Pulse Resp BP BP Pulse Ox 03/28/25 08:00 97.9 F 81 18 120/71 95 03/28/25 04:05 98.1 F 74 22 131/81 98 03/27/25 23:10 97.8 F 79 22 101/63 95 03/27/25 22:35 83 20 130/75 95 03/27/25 21:24 98.7 F 86 18 133/85 99 03/27/25 19:37 98.6 F 85 18 146/81 98 03/27/25 18:38 98.7 F 80 18 134/82 98 03/27/25 18:00 84 18 127/69 98 03/27/25 17:00 88 18 128/68 98 03/27/25 16:02 84 86 H 122/77 98 03/27/25 16:01 97.9 F 84 18 141/78 03/27/25 16:00 98.6 F 86 18 119/62 03/27/25 15:45 97.9 F 97 18 113/70 03/27/25 15:28 80 18 127/66 97 03/27/25 14:59 98.7 F 76 20 124/64 99 03/27/25 13:59 98.8 F 78 16 100/54 03/27/25 13:39 98.8 F 78 18 106/56 03/27/25 13:30 98.1 F 76 18 101/52 98 Intake and Output 03/27/25 03/28/25 03/28/25 22:59 06:59 14:59 Intake Total 930 Balance 930 Intake: Blood Product 930 Rc As-1 Unit 310 [id number] Rc As-1 Unit 310 [id number] Rc As-1 Unit 310 [id number] Other: Voiding Method Toilet Bedside Commode # Voids 1 1 # Bowel Movements 1 1 Weight 79.379 kg 79.2 kg - Constitutional General appearance: no acute distress - EENT Eyes: anicteric sclerae, EOMI ENT: hearing grossly normal - Respiratory breathing is even and unlabored - Cardiovascular skin warm and dry - Gastrointestinal General gastrointestinal: soft, no tenderness - Integumentary Integumentary: no cyanotic - Psychiatric Psychiatric: A&O x's 3 Results CBC & Chem 7: 03/28/25 07:19 03/28/25 07:19 Labs: Abnormal Lab Results - Last 24 Hours (Table) 03/27/25 03/27/25 03/27/25 Range/Units 11:18 11:21 17:38 RBC (4.10-5.20) 10*6/uL Hgb (12.0-15.0) g/dL Hct (37.2-46.3) % MCHC (32.0-37.0) g/dL MPV (9.5-12.2) fL Sodium 136 L (137-145) mmol/L Chloride (98-107) mmol/L Carbon Dioxide 18 L (22-30) mmol/L Creatinine 0.43 L (0.52-1.04) mg/dL Glucose 153 H (74-99) mg/dL POC Glucose (mg/dL) 178 H (70-110) mg/dL Crossmatch See Detail 03/27/25 03/28/25 03/28/25 Range/Units 22:31 07:19 07:19 RBC 3.07 L (4.10-5.20) 10*6/uL Hgb 8.4 L D (12.0-15.0) g/dL Hct 26.6 L (37.2-46.3) % MCHC 31.6 L (32.0-37.0) g/dL MPV 9.0 L (9.5-12.2) fL Sodium (137-145) mmol/L Chloride 109 H (98-107) mmol/L Carbon Dioxide 19 L (22-30) mmol/L Creatinine 0.48 L (0.52-1.04) mg/dL Glucose 100 H (74-99) mg/dL POC Glucose (mg/dL) 121 H (70-110) mg/dL Crossmatch 03/28/25 Range/Units 11:34 RBC (4.10-5.20) 10*6/uL Hgb (12.0-15.0) g/dL Hct (37.2-46.3) % MCHC (32.0-37.0) g/dL MPV (9.5-12.2) fL Sodium (137-145) mmol/L Chloride (98-107) mmol/L Carbon Dioxide (22-30) mmol/L Creatinine (0.52-1.04) mg/dL Glucose (74-99) mg/dL POC Glucose (mg/dL) 135 H (70-110) mg/dL Crossmatch Assessment and Plan (1) Leiomyosarcoma Current Visit: Yes Status: Acute Priority: High Code(s): C49.9 - MALIGNANT NEOPLASM OF CONNECTIVE AND SOFT TISSUE, UNSP SNOMED Code(s): 025768340 (2) Anemia Current Visit: Yes Status: Acute Priority: High Code(s): D64.9 - ANEMIA, UNSPECIFIED SNOMED Code(s): 626954647 (3) Abnormal uterine bleeding Current Visit: Yes Status: Acute Priority: High Code(s): N93.9 - ABNORMAL UTERINE AND VAGINAL BLEEDING, UNSPECIFIED SNOMED Code(s): 99514544734280 Plan: Vaginal bleeding, anemia: Presented to the ER for anemia. Hgb noted at 5.6 in clinic. Of note patient has received blood transfusions on 02/24 and 03/05. She has been having persisting vaginal bleeding with no reported acute changes in bleeding with no clotting. She does report improvement in vaginal bleeding today -Upon admit, hgb was 5.0. Patient was transfused with 3 units PRBCs with repeat hemoglobin showing appropriate response at 8.4. -PLASTICS WORKER consulted -Anemia labs obtained -Continue to monitor CBC. Transfuse for hgb <7 or if symptomatic Uterine leiomyosarcoma: -Oncology history as dictated in the HPI -Patient was started on doxorubicin and trabectidin, completing cycle 3 on 03/06/25 -Treatment will be rescheduled for next week Dr attests: I have performed H&P and developed impression and plan of care for patient, discussed with dictator. I agree with dictated note, documented as a scribe
[2025-03-28 22:05] LABS: Ferritin 24.3 ng/mL (10.0-291.0); Iron 24.0 UG/DL (50-170); Total Iron Binding Capacity 517.0 UG/DL (228-460); Vitamin B12 522.0 pg/mL (200.0-944.0)
[2025-03-28] MEDS: HYDROcodone/APAP 5-325MG 1 EACH TAB PO PRN (23:57)
[2025-03-29 00:37] VITALS: RESP 18
[2025-03-29 05:59] LABS: Basophils # (A) 0.06 10*3/uL (0.00-0.10); Basophils % (A) 1.0 %; Eosinophils # (A) 0.09 10*3/uL (0.04-0.35); Eosinophils % (A) 1.6 %; HCT 26.7 % (37.2-46.3); HGB 8.3 g/dL (12.0-15.0); Lymphocytes # (A) 0.84 10*3/uL (0.90-5.00); Lymphocytes % (A) 14.7 %; MCH 26.8 pg (27.0-32.0); MCHC 31.1 g/dL (32.0-37.0); MCV 86.1 fL (80.0-97.0); Monocytes # (A) 0.57 10*3/uL (0.20-1.00); Monocytes % (A) 10.0 %; Neutrophils # (A) 4.14 10*3/uL (1.80-7.70); Neutrophils % (A) 72.4 %; Platelet Count 190 10*3/uL (140-440); RBC 3.10 10*6/uL (4.10-5.20); RDW 17.7 % (11.5-14.5); WBC 5.72 10*3/uL (4.50-10.00)
[2025-03-29 06:03] LABS: Glucose,Whole Blood 202 mg/dL (70-110)
[2025-03-29 06:32] LABS: African American GFR (CKD) >90 (>60 ml/min/1.73 sqM); Anion Gap 7 mmol/L; Blood Urea Nitrogen 10 mg/dL (7-17); Calcium 9.6 mg/dL (8.4-10.2); Carbon Dioxide 25 mmol/L (22-30); Chloride 103 mmol/L (98-107); Glucose 182 mg/dL (74-99); Magnesium 1.7 mg/dL (1.6-2.3); Non-African American GFR(CKD) >90 (>60 ml/min/1.73 sqM); Sodium 135 mmol/L (137-145)
[2025-03-29 06:45] LABS: Potassium 4.9 mmol/L (3.5-5.1)
[2025-03-29] MEDS ORDERED: Magnesium Replacement Protocol 1 EACH MISC MISCELLANE PRN (09:29)
[2025-03-29] MEDS: MAGNESIUM SULFATE-D5W PMX 1 GM in DEXTROSE/WATER 1 100ML.BAG IVPB ONE (10:33)
[2025-03-29 11:31] LABS: Glucose,Whole Blood 209 mg/dL (70-110)
[2025-03-29 12:13] VITALS: TEMP 98.1
[2025-03-29] MEDS: SODIUM FERRIC GLUCONAT-SUCROSE 125 MG in SODIUM CHLORIDE 0.9% 100 ML IVPB SCH (15:00)
[2025-03-29 15:50] VITALS: BP 125/76; PULSE 78
[2025-03-29 16:29] LABS: Glucose,Whole Blood 199 mg/dL (70-110)
--- NOTE | 2025-03-31 16:39 | P.DS ---
Providers Date of admission: 03/27/25 12:55 Attending physician: Ellie Vides Consults: 03/27/25 12:39 Consult Physician Routine Consulting Provider: Sergey Mora Consult Reason/Comments: vaginal bleeding, anemia Do you want consulting provider notified?: Yes 03/27/25 15:15 Consult Physician Routine Consulting Provider: Pravin David Consult Reason/Comments: known to pt Do you want consulting provider notified?: Yes Primary care physician: Physician Nonstaff Hospital Course: Final Diagnosis Acute blood loss anemia secondary to vaginal bleeding History of uterine cancer currently undergoing chemotherapy Known cervical mass with recent transvaginal pelvic ultrasound showing increased growth and vasculature as prior Diabetes mellitus type 2 Fibromyalgia Gastroesophageal reflux disease Hypertension currently normotensive Sleep apnea with CPAP use Hyperlipidemia Hypothyroidism Anxiety/bipolar/depression/schizophrenia GI Prophylaxis DVT Prophylaxis contraindicated because of the anemia Full Code Discharge Disposition Patient is stable for discharge home with overal guarded prognosis. Oncology has evaluated the patient and patient received a dose of IV iron as well as 3 units of packed red blood cells. Vaginal bleeding has slowed down. Patient to follow up closely with Dr David in the office on discharge as well as her gynecology oncologist Dr Allen. Recommend to repeat CBC to monitor blood counts 2 to 3 days. Hospital Course This is a 59 year old female with medical history of diabetes mellitus, fibromyalgia, GERD, hypertension, hyperlipidemia, sleep apnea, hypothyroidism, uterine cancer, anxiety, bipolar, depression, schizophrenia, former smoker. Patient comes in to the hospital with reports of heavy vaginal bleeding onset of 3 days ago. She has been feeling fatigued. Patient has a known diagnosis of uterine cancer and follows with Dr David on an outpatient basis. Patient is currently undergoing chemotherapy and last received 3 weeks ago. Has been following with GEODETIC TECHNICIAN on get an outpatient basis did have a transvaginal ultrasound completed on March 05, 2025 because of the known uterine cancer and heavy vaginal bleeding. Transvaginal pelvic ultrasound reveals abnormal vascular mass lesion noted in the cervix extending into the vaginal fornix identified and is more echogenic with more prominent internal vascular flow now measuring 6.1 x 4.1 x 4 cm from 4.2 x 3.1 x 4 cm previously. On admission hemoglobin found to be 5.0, sodium 136, potassium 5.5., BUN 13, creatinine 0.43, glucose 153. Patient was admitted for symptomatic anemia and vaginal bleeding. Patient to receive 3 units of PRBCs. Gynecology and oncology will be consulted. Patient is admitted to general medical floor. Status post 3 units of PRBCs and hemoglobin today 8.4. Patient states she has continued vaginal bleeding; although states she wore only 1 pad overnight. Patient does follow with Dr ALLEN film processing shift supervisor oncologist and states she does have an appt coming up was supposed to follow up after finishing chemotherapy. Was supposed to have chemo yesterday. Oncology evaluated the patient and recommend IV ferrlecit infusion. Hemoglobin 8.3. Patient has improved vaginal bleeding. Was not evaluated by gynecology this admission although consulted. Patient has been up ambulating without difficulty. Awake alert and oriented. She will be discharged home with close follow up with her oncology team. Chemotherapy held until follow up in the office. Please see medication reconciliation for a list of current medications. Thank you for allowing us to participate in the care of this patient. The impression and plan of care has been dictated by Rosalie Galloway, Nurse Practitioner as directed. Dr. Federico MD I have performed a history and physical examination and medical decision making of this patient, discussed the same with the dictator, and agree with the dictators assessment and plan as written, documented as a scribe. Based on total visit time, I have performed more than 50% of this visit. Patient Condition at Discharge: Fair Plan - Discharge Summary Discharge Rx Participant: No New Discharge Prescriptions: New Ferrous Sulfate [Feosol] 325 mg PO BID #60 tab Continue metFORMIN HCL [Glucophage] 1,000 mg PO BID Oxybutynin Chloride 5 mg PO BID Levothyroxine Sodium [Synthroid] 50 mcg PO DAILY Propranolol [Inderal] 40 mg PO BID gemfibroziL [Lopid] 600 mg PO BID Dulaglutide [Trulicity] 3 mg SQ FR Loratadine [Claritin] 10 mg PO DAILY Baclofen 10 mg PO HS [place] Carbonate 600 mg PO HS 30 Days #30 cap hydrOXYzine pamoate [Vistaril] 50 mg PO HS hydrOXYzine pamoate [Vistaril] 25 mg PO AC-TID Omeprazole [PriLOSEC] 20 mg PO AC-BRKFST Aprepitant 80 mg PO DIRECTED Primidone [Mysoline] 25 mg PO HS Lidocaine-Prilocaine Cream [Emla Cream 2.5%/2.5%] 1 applic TOPICAL DIRECTED PRN PRN Reason: port access Nystatin/Triamcinolone Acet [Nystatin-Triamcinolone Cream] 1 applic TOPICAL QID Insulin Glargine,Hum.rec.anlog [[place]ori [place]] 70 units SQ HS@1700 rOPINIRole HCL [Requip] 1 mg PO TID 30 Days #90 tab Atorvastatin [Lipitor] 20 mg PO HS #0 tab FLUoxetine HCL [PROzac] 80 mg PO DAILY HYDROcodone/APAP 5-325MG [[place] 5-325] 1 tab PO Q4H PRN PRN Reason: Pain Nystatin 100,000 Unit/gm Oint [Mycostatin Oint] 1 applic TOPICAL BID PRN PRN Reason: Skin Irritation Ondansetron Odt [Zofran ODT] 8 mg PO Q4H PRN PRN Reason: Nausea And Vomiting Discontinued Losartan Potassium [Cozaar] 100 mg PO DAILY Discharge Medication List metFORMIN HCL [Glucophage] 1,000 mg PO BID 09/29/15 [History] Oxybutynin Chloride 5 mg PO BID 03/16/18 [History] Levothyroxine Sodium [Synthroid] 50 mcg PO DAILY 05/30/19 [History] Propranolol [Inderal] 40 mg PO BID 03/27/20 [History] gemfibroziL [Lopid] 600 mg PO BID 03/27/20 [History] Baclofen 10 mg PO HS 01/01/24 [History] Dulaglutide [Trulicity] 3 mg SQ FR 01/01/24 [History] Insulin Glargine,Hum.rec.anlog [[place]] 70 units SQ HS@1700 01/01/24 [History] Loratadine [Claritin] 10 mg PO DAILY 01/01/24 [History] Atorvastatin [Lipitor] 20 mg PO HS #0 tab 01/08/24 [Rx] [place] Carbonate 600 mg PO HS 30 Days #30 cap 01/08/24 [Rx] rOPINIRole HCL [Requip] 1 mg PO TID 30 Days #90 tab 01/08/24 [Rx] FLUoxetine HCL [PROzac] 80 mg PO DAILY 01/10/25 [History] Omeprazole [PriLOSEC] 20 mg PO AC-BRKFST 01/10/25 [History] hydrOXYzine pamoate [Vistaril] 25 mg PO AC-TID 01/10/25 [History] hydrOXYzine pamoate [Vistaril] 50 mg PO HS 01/10/25 [History] HYDROcodone/APAP 5-325MG [[place] 5-325] 1 tab PO Q4H PRN 02/24/25 [History] Aprepitant 80 mg PO DIRECTED 03/27/25 [History] Lidocaine-Prilocaine Cream [Emla Cream 2.5%/2.5%] 1 applic TOPICAL DIRECTED PRN 03/27/25 [History] Nystatin 100,000 Unit/gm Oint [Mycostatin Oint] 1 applic TOPICAL BID PRN 03/27/25 [History] Nystatin/Triamcinolone Acet [Nystatin-Triamcinolone Cream] 1 applic TOPICAL QID 03/27/25 [History] Ondansetron Odt [Zofran ODT] 8 mg PO Q4H PRN 03/27/25 [History] Primidone [Mysoline] 25 mg PO HS 03/27/25 [History] Ferrous Sulfate [Feosol] 325 mg PO BID #60 tab 03/29/25 [Rx] Follow up Appointment(s)/Referral(s): Nonstaff,Physician [Primary Care Provider] - 1-2 days Pravin David MD [STAFF PHYSICIAN] - 1 Week Patient Instructions/Handouts: Anemia (DC) Activity/Diet/Wound Care/Special Instructions: Patient take ferrous sulfate twice daily and follow up with oncology for iron transfusion Follow up with your racing board marker/oncologist on discharge Follow up with Dr David in one week Repeat CBC to monitor hemoglobin in 2 to 3 days Discharge Disposition: HOME SELF-CARE
== END 2025-03-29 17:59 | disposition home or self-care (01) ==
LOC: EC 10:56 → 5NMEDONC 12:54 → UNDOADMOB 12:54 → INTOOBSV 12:55 → OBSVTOIN 12:55 → 5NMEDONC 12:56 → 3SCARD 16:37 → UNDODISOB 03-29 17:59
PROVIDERS: ADMIT Hospitalist; ATTEND Hospitalist
DX: D62 Acute posthemorrhagic anemia (principal); C55 Malignant neoplasm of uterus, part unspecified; E11.9 Type 2 diabetes mellitus without complications; K21.9 Gastro-esophageal reflux disease without esophagitis; E78.5 Hyperlipidemia, unspecified; I10 Essential (primary) hypertension; G47.30 Sleep apnea, unspecified; F31.9 Bipolar disorder, unspecified; E03.9 Hypothyroidism, unspecified; M79.7 Fibromyalgia; F20.9 Schizophrenia, unspecified; Z85.44 Personal history of malignant neoplasm of other female genital organs; Z87.891 Personal history of nicotine dependence; Z79.84 Long term (current) use of oral hypoglycemic drugs; Z79.890 Hormone replacement therapy; Z79.899 Other long term (current) drug therapy; Z79.85 Long-term (current) use of injectable non-insulin antidiabetic drugs; Z79.4 Long term (current) use of insulin
CPT/HCPCS: 96376; 96365; 96366; 96374; 96375; 36430; 99291; 36415; 97162; 97166; 86900; 86901; 82747; 80048 ×3; 82607; 82728; 83540; 83550; 83735; 85025 ×3; 85610; 85730; 86850; 86920; 83036; G0378 ×3; P9016; J2405; J2916; J3475; J2470 ×2

== ENCOUNTER → 2025-04-11 | Outpatient (CLI) | payer MEDICARE, OTHER ==
[2025-04-11 07:47] LABS: African American GFR (CKD) >90 (>60 ml/min/1.73 sqM); Blood Urea Nitrogen 9 mg/dL (7-17); Non-African American GFR(CKD) >90 (>60 ml/min/1.73 sqM)
--- NOTE | 2025-04-11 09:45 | CT ---
EXAMINATION TYPE: CT ChestAbdPelvis w con DATE OF EXAM: 04/11/2025 9:31 AM COMPARISON: 07/26/2024 CLINICAL INDICATION: Female, 59 years old with history of D25.9 LEIOMYOMA OF UTERUS; [facility], LEIOMYOMA O F UTERUS Technique: CT ChestAbdPelvis after IV contrast. Delayed images through the kidneys and coronal and sa gittal reconstructions were obtained. Contrast used:100ml mL of Isovue 300 with IV Contrast, Oral contrast used: with Oral Contrast CT DLP: 1854.7 mGycm, Automated exposure control for dose reduction was used. Findings: CHEST: Right anterior chest wall injection port with catheter tip at the mid SVC level. Heart normal size without pericardial effusion. Thoracic aorta normal caliber with conventional arch vessel branching anatomy. No thoracic lymphadenopathy by CT size criteria. Some strandy atelectasis/scar remains at the inferior lingula. Previous nodular appearance is no long er appreciated. Some mosaic attenuation in the lower lungs suggesting small airways disease. There is mild emphysematous change. No consolidation or pleural effusion. ABDOMEN: Stable 3.3 cm hypodense area along the falciform ligament of the liver with some overlying capsular v olume loss. Appearance is unchanged from 07/26/2024 suggesting a benign etiology, possible atypical he mangioma or complex cyst. It measures smaller than 07/23/2014. Liver remains enlarged at 25.0 cm with suspected fatty infiltration. Portal venous system is patent. No biliary ductal dilatation. Small 1.1 cm diverticulum of the third portion of the duodenum projecting up into the pancreatic head region. Cholecystectomy clips. Adrenal glands, kidneys, and pancreas within normal limits. Spleen mildly enlarged 15.9 cm. Prominent left upper quadrant collateral vessels and what appears to be a splenorenal shunt redemonstrated. No dilated small bowel, free fluid, or free air. No mesenteric or retroperitoneal lymphadenopathy. So me fluid within distal small bowel loops and liquid stool within the right side of the colon. No albert colonic inflammatory change seen. Redundant sigmoid colon. Pelvis: Bladder urine distended. There is pelvic floor relaxation. Some central low density within the cervix with possible 1.4 cm nodularity, refer to coronal image 70 . Uterus is anteverted. Endometrium is not well characterized by CT. Both ovaries are visualized. No abnormal fluid collection in the pelvis or pelvic lymphadenopathy. Bones: Moderate degenerative change of the hips. No osseous destructive process. IMPRESSION: 1. There seems to be some some fluid within the endocervical canal and possible 1.4 cm nodularity her e. Recommend direct visualization and possible Pap smear to exclude a mucosal lesion here. The uterus is anteverted by detailed assessment of the endometrium and myometrium is limited by CT. No obvious abnormality seen. 2. COPD with mild emphysema and some mosaic attenuation suggesting small airways disease. 3. Hepatomegaly of 25.0 cm. Given splenomegaly at 15.9 cm and a left-sided splenorenal shunt with col laterals, correlate to exclude the possibility of portal venous hypertension or underlying liver dise ase. 4. Prominent fluid in distal small bowel loops and liquid stool in the right side of the colon. Findi ngs may reflect a nonspecific enteritis. 5. A 3.3 cm lesion anterior left liver lobe is overall smaller from 2013 and relatively similar from 07/26/2024 suggesting a benign etiology. Correlate for any known diagnosis. [facility], , 04/11/2025 9:43 AM
== END | disposition home or self-care (01) ==
LOC: RADCTMAIN 07:02
PROVIDERS: ATTEND Internal Medicine Hematology & Oncology
DX: D25.9 Leiomyoma of uterus, unspecified (principal); E11.9 Type 2 diabetes mellitus without complications; E78.5 Hyperlipidemia, unspecified; F31.9 Bipolar disorder, unspecified; J43.9 Emphysema, unspecified; R16.2 Hepatomegaly with splenomegaly, not elsewhere classified
CPT/HCPCS: 82565; 84520; 71260; 74177; 36415; Q9967

== ENCOUNTER 2025-04-18 13:33 | Emergency (ER) | payer MEDICARE, OTHER ==
--- NOTE | 2025-04-18 14:16 | ED ---
Weakness HPI - General Source: patient, RN notes reviewed Mode of arrival: ambulatory Limitations: no limitations <Birgit Corley - Last Filed: 04/18/25 15:55> - General Source: patient, RN notes reviewed Mode of arrival: ambulatory Limitations: no limitations <Samir Bernardo - Last Filed: 04/18/25 17:11> - General Chief complaint: Weakness Stated complaint: Abn labs Time Seen by Provider: 04/18/25 13:46 - History of Present Illness Initial comments: This is a 59-year-old female who presents to the emergency department for low hemoglobin. Patient has a history of uterine leiomyosarcoma and is on chemotherapy. She receives chemotherapy every 3 weeks and is due for her next round on 04/24. She does occasionally need blood transfusions when her hemoglobin drops and received one last month as well. She does report increased weakness which happens when her hemoglobin drops. Denies any chest pain or shortness of breath. Denies any bleeding. (Birgit Corley) - Related Data Home Medications Medication Instructions Recorded Confirmed metFORMIN HCL [Glucophage] 1,000 mg PO BID 09/29/15 03/27/25 Oxybutynin Chloride 5 mg PO BID 03/16/18 03/27/25 Levothyroxine Sodium [Synthroid] 50 mcg PO DAILY 05/30/19 03/27/25 Propranolol [Inderal] 40 mg PO BID 03/27/20 03/27/25 gemfibroziL [Lopid] 600 mg PO BID 03/27/20 03/27/25 Baclofen 10 mg PO HS 01/01/24 03/27/25 Dulaglutide [Trulicity] 3 mg SQ FR 01/01/24 03/27/25 Insulin Glargine,Hum.rec.anlog 70 units SQ HS@1700 01/01/24 03/27/25 [Toupricilla Solostar] Loratadine [Claritin] 10 mg PO DAILY 01/01/24 03/27/25 FLUoxetine HCL [PROzac] 80 mg PO DAILY 01/10/25 03/27/25 Omeprazole [PriLOSEC] 20 mg PO AC-BRKFST 01/10/25 03/27/25 hydrOXYzine pamoate [Vistaril] 25 mg PO AC-TID 01/10/25 03/27/25 hydrOXYzine pamoate [Vistaril] 50 mg PO HS 01/10/25 03/27/25 HYDROcodone/APAP 5-325MG [[place] 1 tab PO Q4H PRN 02/24/25 03/27/25 5-325] Aprepitant 80 mg PO DIRECTED 03/27/25 03/27/25 Lidocaine-Prilocaine Cream [Emla 1 applic TOPICAL DIRECTED PRN 03/27/25 03/27/25 Cream 2.5%/2.5%] Nystatin 100,000 Unit/gm Oint 1 applic TOPICAL BID PRN 03/27/25 03/27/25 [Mycostatin Oint] Nystatin/Triamcinolone Acet 1 applic TOPICAL QID 03/27/25 03/27/25 [Nystatin-Triamcinolone Cream] Ondansetron Odt [Zofran ODT] 8 mg PO Q4H PRN 03/27/25 03/27/25 Primidone [Mysoline] 25 mg PO HS 03/27/25 03/27/25 Previous Rx's Medication Instructions Recorded Atorvastatin [Lipitor] 20 mg PO HS #0 tab 01/08/24 Vansant Carbonate 600 mg PO HS 30 Days #30 cap 01/08/24 rOPINIRole HCL [Requip] 1 mg PO TID 30 Days #90 tab 01/08/24 Ferrous Sulfate [Feosol] 325 mg PO BID #60 tab 03/29/25 Allergies Allergy/AdvReac Type Severity Reaction Status Date / Time coconut oil Allergy Unknown Anaphylaxis Verified 04/18/25 13:40 pineapple [Pineapple] Allergy Unknown Anaphylaxis Verified 04/18/25 13:40 licorice Allergy Anaphylaxis Verified 04/18/25 13:40 Influenza Virus Vaccines AdvReac Nausea & Verified 04/18/25 13:40 Vomiting Review of Systems ROS Other: All systems not noted in ROS Statement are negative. <Birgit Corley - Last Filed: 04/18/25 15:55> ROS Other: All systems not noted in ROS Statement are negative. <Samir Bernardo - Last Filed: 04/18/25 17:11> ROS Statement: Those systems with pertinent positive or pertinent negative responses have been documented in the HPI. Past Medical History Past Medical History: Diabetes Mellitus, Fibromyalgia, GERD/Reflux, Hyperlipidemia, Hypertension, Musculoskeletal Disorder, Seizure Disorder, Skin Disorder, Sleep Apnea/CPAP/BIPAP, Thyroid Disorder Additional Past Medical History / Comment(s): Diabetes Type 2, Borderline personality, Benign liver cyst, abnormal vaginal bleeding since of 2023, no use of CPAP, recent dx. of uterine cancer, last seizure several years ago(pseudo seizures), "yeast" under breast, uses nystatin for History of Any Multi-Drug Resistant Organisms: None Reported Past Surgical History: Cholecystectomy Additional Past Surgical History / Comment(s): chemo port R chest Past Anesthesia/Blood Transfusion Reactions: No Reported Reaction Past Psychological History: Anxiety, Bipolar, Depression, Schizophrenia Smoking Status: Former smoker Past Alcohol Use History: None Reported Past Drug Use History: None Reported - Past Family History Father History Unknown: Yes Family Medical History: Myocardial Infarction (AR) Additional Family Medical History / Comment(s): passed of AR at 71 Mother History Unknown: Yes Family Medical History: Diabetes Mellitus Sister(s) History Unknown: Yes Family Medical History: COPD, Myocardial Infarction (AR) Additional Family Medical History / Comment(s): fatal AR at 50 <Birgit Corley - Last Filed: 04/18/25 15:55> General Exam Limitations: no limitations General appearance: alert, in no apparent distress Head exam: Present: atraumatic, normocephalic, normal inspection Respiratory exam: Present: normal lung sounds bilaterally. Absent: respiratory distress, wheezes, rales, rhonchi, stridor Cardiovascular Exam: Present: regular rate, normal rhythm Neurological exam: Present: alert, oriented X3, CN II-XII intact Psychiatric exam: Present: normal affect, normal mood Skin exam: Present: warm, dry, intact, normal color. Absent: rash <Birgit Corley - Last Filed: 04/18/25 15:55> Course Vital Signs 04/18/25 04/18/25 04/18/25 13:36 15:44 16:30 Temperature 98.1 F 98.5 F Pulse Rate 82 68 85 Respiratory 18 18 16 Rate Blood Pressure 114/63 110/60 117/62 O2 Sat by Pulse 98 99 99 Oximetry 04/18/25 04/18/25 16:44 17:04 Temperature 98.6 F 97.8 F Pulse Rate 83 86 Respiratory 16 18 Rate Blood Pressure 126/62 117/65 O2 Sat by Pulse 98 Oximetry Medical Decision Making - Lab Data Result diagrams: 04/18/25 14:39 04/18/25 14:39 <Birgit Corley - Last Filed: 04/18/25 15:55> - Lab Data Result diagrams: 04/18/25 14:39 04/18/25 14:39 <Samir Bernardo - Last Filed: 04/18/25 17:11> - Medical Decision Making This is a 59-year-old female who presents to the emergency department for low hemoglobin. Was pt. sent in by a medical professional or institution? @ -Jad Did you speak to anyone other than the patient for history? @ -No Did you review nursing and triage notes? @ -Yes, and I agree, it is accurate with regards to the patient's symptoms. Were old charts reviewed? @ -No Differential Diagnosis? @ -Blood loss, medication induced, iron deficiency, this is not meant to be an all-inclusive list. EKG interpreted by me (3pts min.)? @ -Not obtained X-rays interpreted by me (1pt min.)? @ -Not obtained CT interpreted by me (1pt min.)? @ -Not obtained U/S interpreted by me (1pt. min.)? @ -Not obtained What testing was considered but not performed? (CT, X-rays, U/S, labs)? Why? @ -None What meds were considered but not given? Why? @ -None Did you discuss the management of the patient with other professionals? @ -No Did you reconcile home meds? @ -No Was smoking cessation discussed for >3mins.? @ -No Was critical care preformed (if so, how long)? @ -No Were there social determinants of health that impacted care today? How? (Homelessness, low income, unemployed, alcoholism, drug addiction, transportation, low edu. Level, literacy, decrease access to med. care, senior care, rehab)? @ -No Was there de-escalation of care discussed even if they declined? (Discuss DNR or withdrawal of care, Hospice)? @ -No What co-morbidities impacted this encounter? (DM, HTN, Smoking, COPD, CAD, Cancer, CVA, Hep., AIDS, mental health diagnosis, sleep apnea, morbid obesity)? @ -Cancer Was patient admitted / discharged? @ -Lab work demonstrates anemia with a hemoglobin of 6.9. This is improved from what the patient had thought. Lab work otherwise unremarkable. 1 unit of PRBCs ordered for transfusion. Case signed out to Samir Bernardo PA-C, at shift completion pending transfusion with tentative plan for discharge home following transfusion. Undiagnosed new problem with uncertain prognosis? @ -None Drug Therapy requiring intensive monitoring for toxicity (Heparin, Nitro, Insulin, Cardizem)? @ -None Were any procedures done? @ -None Diagnosis/symptom? @ -Chemotherapy-induced anemia Acute, or Chronic, or Acute on Chronic? @ -Acute Uncomplicated (without systemic symptoms) or Complicated (systemic symptoms)? @ -Uncomplicated Side effects of treatment? @ -None Exacerbation, Progression, or Severe Exacerbation] @ -Not applicable Poses a threat to life or bodily function? @ -No (Birgit Corley) Was patient admitted / discharged? Hospital course, mention meds given and route, prescriptions, significant lab abnormalities, going to OR and other pertinent info. @ -Patient discussed and patient care received from Birgit Bruce PA-C. Patient receiving 1 unit of packed red blood cells on transfer care patient. Patient to be discharged following completion of infusion advised follow-up with PCP/oncologist for ongoing care. Patient discussed with Dr. Burden Undiagnosed new problem with uncertain prognosis? @ -No Drug Therapy requiring intensive monitoring for toxicity (Heparin, Nitro, Insulin, Cardizem)? @ -No Were any procedures done? @ -No Diagnosis/symptom? @ -Chemotherapy-induced anemia Acute, or Chronic, or Acute on Chronic? @ -Acute Uncomplicated (without systemic symptoms) or Complicated (systemic symptoms)? @ -Uncomplicated Side effects of treatment? @ -No Exacerbation, Progression, or Severe Exacerbation? @ -No Poses a threat to life or bodily function? How? (Chest pain, USA, AR, pneumonia, PE, COPD, DKA, ARF, appy, cholecystitis, CVA, Diverticulitis, Homicidal, Suicidal, threat to staff... and all critical care pts) @ -No (Samir Bernardo) - Lab Data Lab Results 04/18/25 04/18/25 04/18/25 Range/Units 14:39 14:39 14:39 WBC 9.00 (4.50-10.00) 10*3/uL RBC 2.35 L (4.10-5.20) 10*6/uL Hgb 6.9 L* (12.0-15.0) g/dL Hct 21.8 L (37.2-46.3) % MCV 92.8 D (80.0-97.0) fL MCH 29.4 (27.0-32.0) pg MCHC 31.7 L (32.0-37.0) g/dL Plt Count 148 (140-440) 10*3/uL MPV 10.8 (9.5-12.2) fL Immature Gran % (Auto) 5.4 % Neutrophils % Not Reportable Neutrophils % (Manual) 78 % Lymphocytes % Not Reportable Lymphocytes % (Manual) 14 % Monocytes % Not Reportable Monocytes % (Manual) 6 % Eosinophils % Not Reportable Eosinophils % (Manual) 2 % Basophils % Not Reportable Immature Gran # 0.49 H (0.00-0.04) 10*3/uL Neutrophils # Not Reportable Neutrophils # (Manual) 7.02 (1.3-7.7) k/uL Lymphocytes # Not Reportable Lymphocytes # (Manual) 1.26 (1.0-4.8) k/uL Monocytes # Not Reportable Monocytes # (Manual) 0.54 (0-1.0) k/uL Eosinophils # Not Reportable Eosinophils # (Manual) 0.18 (0-0.7) k/uL Basophils # Not Reportable Nucleated RBCs 0 (0-0) /100 WBC Manual Slide Review Performed Large Platelets Present Polychromasia Present Tear Drop Cells Present PT 11.1 (10.0-12.5) sec INR 1.0 (<1.2) APTT 22.9 (22.0-30.0) sec Sodium 140 (137-145) mmol/L Potassium 4.5 (3.5-5.1) mmol/L Chloride 105 (98-107) mmol/L Carbon Dioxide 20 L (22-30) mmol/L Anion Gap 15 mmol/L BUN 7 (7-17) mg/dL Creatinine 0.53 (0.52-1.04) mg/dL Est GFR (CKD-EPI)AfAm >90 (>60 ml/min/1.73 sqM) Est GFR (CKD-EPI)NonAf >90 (>60 ml/min/1.73 sqM) Glucose 144 H (74-99) mg/dL Calcium 9.2 (8.4-10.2) mg/dL Total Bilirubin 0.5 (0.2-1.3) mg/dL AST 36 (14-36) U/L ALT 19 (4-34) U/L Alkaline Phosphatase 131 H (38-126) U/L Total Protein 6.5 (6.3-8.2) g/dL Albumin 4.3 (3.5-5.0) g/dL Blood Type Blood Type Recheck Bld Type Recheck Status Antibody Screen Crossmatch Spec Expiration Date 04/18/25 Range/Units 14:39 WBC (4.50-10.00) 10*3/uL RBC (4.10-5.20) 10*6/uL Hgb (12.0-15.0) g/dL Hct (37.2-46.3) % MCV (80.0-97.0) fL MCH (27.0-32.0) pg MCHC (32.0-37.0) g/dL Plt Count (140-440) 10*3/uL MPV (9.5-12.2) fL Immature Gran % (Auto) % Neutrophils % Neutrophils % (Manual) % Lymphocytes % Lymphocytes % (Manual) % Monocytes % Monocytes % (Manual) % Eosinophils % Eosinophils % (Manual) % Basophils % Immature Gran # (0.00-0.04) 10*3/uL Neutrophils # Neutrophils # (Manual) (1.3-7.7) k/uL Lymphocytes # Lymphocytes # (Manual) (1.0-4.8) k/uL Monocytes # Monocytes # (Manual) (0-1.0) k/uL Eosinophils # Eosinophils # (Manual) (0-0.7) k/uL Basophils # Nucleated RBCs (0-0) /100 WBC Manual Slide Review Large Platelets Polychromasia Tear Drop Cells PT (10.0-12.5) sec INR (<1.2) APTT (22.0-30.0) sec Sodium (137-145) mmol/L Potassium (3.5-5.1) mmol/L Chloride (98-107) mmol/L Carbon Dioxide (22-30) mmol/L Anion Gap mmol/L BUN (7-17) mg/dL Creatinine (0.52-1.04) mg/dL Est GFR (CKD-EPI)AfAm (>60 ml/min/1.73 sqM) Est GFR (CKD-EPI)NonAf (>60 ml/min/1.73 sqM) Glucose (74-99) mg/dL Calcium (8.4-10.2) mg/dL Total Bilirubin (0.2-1.3) mg/dL AST (14-36) U/L ALT (4-34) U/L Alkaline Phosphatase (38-126) U/L Total Protein (6.3-8.2) g/dL Albumin (3.5-5.0) g/dL Blood Type O Positive Blood Type Recheck O Pos Bld Type Recheck Status No Antibody Screen NEGATIVE Crossmatch See Detail Spec Expiration Date 04/21/20252338 Disposition Is patient prescribed a controlled substance at d/c from ED?: No <Birgit Corley - Last Filed: 04/18/25 15:55> Is patient prescribed a controlled substance at d/c from ED?: No Time of Disposition: 17:08 <Samir Bernardo - Last Filed: 04/18/25 17:11> Clinical Impression: Anemia due to chemotherapy Disposition: HOME SELF-CARE Condition: Fair Instructions (If sedation given, give patient instructions): Blood Transfusion (DC) Additional Instructions: Return to the emergency department with any new, worsening, or concerning symptoms. Follow up with your primary care provider and oncologist. Referrals: Davidson Flores MD [Primary Care Provider] - 1-2 days
[2025-04-18 15:06] LABS: HCT 21.8 % (37.2-46.3); MCH 29.4 pg (27.0-32.0); MCHC 31.7 g/dL (32.0-37.0); Platelet Count 148 10*3/uL (140-440); RBC 2.35 10*6/uL (4.10-5.20); RDW 21.1 % (11.5-14.5); WBC 9.00 10*3/uL (4.50-10.00)
[2025-04-18 15:15] LABS: MCV 92.8 fL (80.0-97.0)
[2025-04-18 15:17] LABS: HGB 6.9 g/dL (12.0-15.0)
[2025-04-18 15:20] LABS: ALT 19 U/L (4-34); AST 36 U/L (14-36); African American GFR (CKD) >90 (>60 ml/min/1.73 sqM); Albumin 4.3 g/dL (3.5-5.0); Alkaline Phosphatase 131 U/L (38-126); Anion Gap 15 mmol/L; Blood Urea Nitrogen 7 mg/dL (7-17); Calcium 9.2 mg/dL (8.4-10.2); Carbon Dioxide 20 mmol/L (22-30); Chloride 105 mmol/L (98-107); Glucose 144 mg/dL (74-99); Non-African American GFR(CKD) >90 (>60 ml/min/1.73 sqM); Potassium 4.5 mmol/L (3.5-5.1); Sodium 140 mmol/L (137-145); Total Protein 6.5 g/dL (6.3-8.2)
[2025-04-18 15:31] LABS: INR 1.0 (<1.2); Partial Thromboplastin Time 22.9 sec (22.0-30.0); Prothrombin Time 11.1 sec (10.0-12.5)
[2025-04-18 16:01] LABS: Eosinophils # (M) 0.18 k/uL (0-0.7); Lymphocytes # (M) 1.26 k/uL (1.0-4.8); Monocytes # (M) 0.54 k/uL (0-1.0); Neutrophils # (M) 7.02 k/uL (1.3-7.7); Neutrophils % (M) 78 %; Total Cells Counted 100
[2025-04-18 16:02] LABS: Polychromasia Present; Tear Drop Cells Present
[2025-04-18 17:06] VITALS: RESP 18; TEMP 97.8
[2025-04-18 20:05] VITALS: BP 144/78; PULSE 81
== END 2025-04-18 20:06 | disposition home or self-care (01) ==
LOC: EC 13:33
DX: D64.81 Anemia due to antineoplastic chemotherapy (principal); T45.1X5A Adverse effect of antineoplastic and immunosuppressive drugs, initial encounter; Z87.891 Personal history of nicotine dependence; Z91.018 Allergy to other foods; Z88.8 Allergy status to other drugs, medicaments and biological substances; Z88.7 Allergy status to serum and vaccine; Z85.42 Personal history of malignant neoplasm of other parts of uterus
CPT/HCPCS: 36415; 86900; 86901; 80053; 85025; 85610; 85730; 86850; 86920; 99285; 36430; P9016